=== PATIENT | male | born 1945 | race Caucasian/White ===

== ENCOUNTER → 2021-02-23 15:30 | Outpatient (CLI) | payer MEDICARE, SELFPAY ==
--- NOTE | 2021-02-23 15:31 | DI.RAD.S_ITS ---
PROCEDURE: XR BONE SURVEY INDICATIONS: MGUS, looking for lytic bone lesions TECHNIQUE: Multiple views obtained of various bony structures as described below. COMPARISON: None. FINDINGS: Skull (lateral): No suspicious bony lesions. No fractures. Thoracic spine (AP, lateral): No suspicious bony lesions. No acute vertebral body compression fractures. Lumbar spine (AP, lateral): No suspicious bony lesions. No acute vertebral body compression fractures. Relatively prominent degenerative disc disease and [id number] facet osteoarthritis is noted, without osteolytic or blastic lesions. Multiple bridging osteophytes are present along the lower thoracic spine and the lumbosacral spine. Pelvis (AP): No suspicious bony lesions. No fractures. Overlying soft tissues appear unremarkable. 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 Right and left humeri (AP): No suspicious bony lesions. No fractures. Overlying soft tissues appear unremarkable. Right and left femurs (AP): No suspicious bony lesions. No fractures. Overlying soft tissues appear unremarkable. 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 IMPRESSION: Degenerative changes as discussed but no osteolytic or blastic bone lesions throughout the axial and appendicular skeleton included on this study. Dictated by: Michael Soni M.D. on 02/23/2021 at 16:17 Approved by: Michael Soni M.D. on 02/23/2021 at 16:19
== END ==
PROVIDERS: PCP Family Medicine; Referring Provider Internal Medicine; Visit Provider Internal Medicine
DX: D47.2 Monoclonal gammopathy (principal); M51.36 Other intervertebral disc degeneration, lumbar region; M47.816 Spondylosis without myelopathy or radiculopathy, lumbar region; M16.9 Osteoarthritis of hip, unspecified; Z96.653 Presence of artificial knee joint, bilateral
CPT/HCPCS: 77075

== ENCOUNTER 2021-06-23 09:44 | Emergency (ER) | payer MEDICARE, SELFPAY ==
[2021-06-23 09:45] VITALS: BP 137/67; PULSE 94; RESP 14; TEMP 37.1; O2SAT 98; BMI 29.5
--- NOTE | 2021-06-23 09:58 | ED_ITS ---
HPI - General Adult General Chief complaint: Dental/Oral Stated complaint: bleeding from mouth, coagulation issues Time Seen by Provider: 06/23/21 09:48 Source: patient Mode of arrival: Ambulatory Limitations: no limitations History of Present Illness HPI narrative: Patient is a 75-year-old male. History of thrombocytopenia. Is here for evaluation of bleeding from his mouth. He states that he thought maybe he bit his tongue yesterday. He woke up this morning with blood running down the side of his mouth. No problems breathing. No problems swallowing. Related Data Home Medications Medication Instructions Recorded Confirmed cholecalciferol (vitamin D3) 25 1,000 u PO QDAY #0 03/08/17 02/23/21 mcg (1,000 unit) tablet (Vitamin D3) chondroitin sulfate A 250 mg 600 mg PO Q DAY #0 03/08/17 02/23/21 capsule (Chondroitin Sulfate) vitamin E 400 unit capsule 400 u PO QDAY #0 03/08/17 02/23/21 acetaminophen 325 mg tablet 325 mg PO Q4HP PRN 02/23/21 02/23/21 fexofenadine 180 mg tablet 180 mg PO DAILY 02/23/21 02/23/21 folic acid 800 mcg tablet 800 mcg DAILY 02/23/21 02/23/21 krill oil 500 mg capsule 500 mg PO DAILY 02/23/21 02/23/21 montelukast 10 mg tablet 10 mg PO DAILY 02/23/21 02/23/21 multivitamin 1 tab PO DAILY 02/23/21 02/23/21 piroxicam 10 mg capsule 10 mg PO DAILY 02/23/21 02/23/21 pravastatin 20 mg tablet 20 mg PO DAILY 02/23/21 02/23/21 pyridoxine (vitamin B6) 100 mg 100 mg DAILY 02/23/21 02/23/21 tablet (Vitamin B-6) testosterone 02/23/21 valacyclovir 500 mg tablet 500 mg PO BID PRN 02/23/21 02/23/21 (Valtrex) vitamin E 400 unit capsule 400 unit PO DAILY 02/23/21 02/23/21 zolpidem 5 mg tablet (Ambien) 2.5 mg PO BEDTIME PRN 02/23/21 02/23/21 Previous Rx's Medication Instructions Recorded aspirin 81 mg tablet,delayed 81 mg PO BID #60 tab 01/24/18 release Allergies Allergy/AdvReac Type Severity Reaction Status Date / Time levofloxacin Allergy Severe HALLUCINATI Verified 06/23/21 09:50 ONS Review of Systems ENT Ears, Nose, Mouth, and Throat: Reports as per HPI Respiratory Respiratory: Reports system reviewed and no additional complaints, except as doc umented Gastrointestinal Comments: No problems swallowing Integumentary/Breasts Skin/Breast: Reports system reviewed and no additional complaints, except as documented Hematologic/Lymphatic Hematologic/Lymphatic: Reports easy bleeding On Anticoagulants: No Patient History Medical History Fracture of proximal end of right tibia Hypertension MGUS (monoclonal gammopathy of unknown significance) Obesity Social History Smoking Status: Unknown if ever smoked Smoking Status: Unknown if ever smoked alcohol intake frequency: 0-2 drinks per day Substance Use Type: does not use Exam Initial Vital Signs Initial Vital Signs: Vital Signs Temperature 98.8 F 06/23/21 09:45 Pulse Rate 94 H 06/23/21 09:45 Respiratory Rate 14 06/23/21 09:45 Blood Pressure 137/67 06/23/21 09:45 Pulse Oximetry 98 06/23/21 09:45 Const General: cooperative, healthy appearing and comfortable [facility] Mouth: oral mucosae normal, lip normal and lip abnormal (Bleeding coming from the underside of the left side of the tongue) Resp Effort & Inspection: normal respiratory effort Cardio Rate: regular rate Skin General: no rashes or lesions noted Neuro General: patient alert, patient awake, patient oriented x3 and moves all extremities Extrem General: normal to inspection and capillary refill normal Course Vital Signs Vital signs: Vital Signs - 8 hr 06/23/21 09:45 06/23/21 12:00 Temperature 98.8 F Pulse Rate 94 H 60 Respiratory Rate 14 Blood Pressure 137/67 127/62 Pulse Oximetry 98 98 Medical Decision Making MDM Narrative Medical decision making narrative: The bleeding was isolated to the underside of the left distal portion of his tongue. We were able to control the bleeding with some Gelfoam and pressure. He does have low platelets however I have feel that this is most likely not the cause of his issues today. I feel that we can hold on further workup for now. He was given return precautions and follow-up instructions. He expressed understanding and agreement. Discharge Plan Departure Patient Disposition: Home Clinical Impression: Hemorrhage of tongue Instructions: Immune Thrombocytopenia Purpura Activity Restrictions/Additional Instructions: Continue to take all of your medications as directed. Contact your primary doctor for a follow-up. Return to the emergency department for any new or worsening symptoms Prescriptions: No Action Chondroitin Sulfate 250 MG capsule 600 mg PO Q DAY Qty: 0 RF: 0 vitamin E 400 UNIT capsule 400 u PO QDAY Qty: 0 RF: 0 cholecalciferol (vitamin D3) [Vitamin D3] 1,000 UNIT tablet 1,000 u PO QDAY Qty: 0 RF: 0 aspirin 81 MG tablet,delayed release (DR/EC) 81 mg PO BID Qty: 60 RF: 1 multivitamin Tablet 1 tab PO DAILY RF: 0 fexofenadine 180 mg Tablet 180 mg PO DAILY RF: 0 valacyclovir [Valtrex] 500 mg Tablet 500 mg PO BID PRN (Reason: Outbreak) RF: 0 montelukast 10 mg Tablet 10 mg PO DAILY RF: 0 piroxicam 10 mg Capsule 10 mg PO DAILY RF: 0 pravastatin 20 mg Tablet 20 mg PO DAILY RF: 0 zolpidem [Ambien] 5 mg Tablet 2.5 mg PO BEDTIME PRN (Reason: Insomnia) RF: 0 pyridoxine (vitamin B6) [Vitamin B-6] 100 mg Tablet 100 mg DAILY RF: 0 vitamin E 400 unit Capsule 400 unit PO DAILY RF: 0 folic acid 800 mcg Tablet 800 mcg DAILY RF: 0 krill oil 500 mg Capsule 500 mg PO DAILY RF: 0 testosterone RF: 0 acetaminophen 325 MG tablet 325 mg PO Q4HP PRN (Reason: Pain (Scale Score 4-6)) RF: 0 Referrals: Salinas Morris MD [Primary Care Provider] -
--- NOTE | 2021-06-23 11:12 | PC.NURSE ---
Pt arrived with blood in mouth. Pt woke up this morning like that with dried blood on side of mouth. Pt has recently had a hx of increased bleeding that his pcp is working him up for.
[2021-06-23 12:00] VITALS: BP 127/62; PULSE 60; O2SAT 98
== END 2021-06-23 12:02 | disposition home or self-care (01) ==
PROVIDERS: Emergency Provider Emergency Medicine; PCP Family Medicine
DX: K14.8 Other diseases of tongue (principal)
CPT/HCPCS: 99281

== ENCOUNTER 2021-06-25 22:09 | Emergency (ER) | payer MEDICARE, SELFPAY ==
[2021-06-25 22:17] VITALS: BP 117/71; PULSE 82; RESP 18; TEMP 36.4; O2SAT 98; BMI 29.5
[2021-06-25] MEDS: LIDOCAINE 1% W/EPI 30 ML (22:22)
--- NOTE | 2021-06-25 22:25 | ED.WOUNDLAC ---
HPI - Wound/Laceration General Chief Complaint: Wound/Laceration Stated Complaint: bleeding and wont stop, small puncture from shot Time Seen by Provider: 06/25/21 22:16 Source: patient Mode of arrival: Ambulatory Limitations: no limitations History of Present Illness HPI narrative: Patient is a 75-year-old male history of thrombocytopenia and recent diagnosis of MGUS presenting today with bleeding after his testosterone shot. Put the shot into his left thigh. He has applied pressure he put Coban and a bandage on it and it continues to ooze. He does take aspirin occasionally as well. He said he is being worked up his primary care provider just sent multiple tests off. I do not see any results yet in are system. He was previously seen here on June 23 for bleeding after he bit his tongue. Related Data Home Medications Medication Instructions Recorded Confirmed cholecalciferol (vitamin D3) 25 1,000 u PO QDAY #0 03/08/17 02/23/21 mcg (1,000 unit) tablet (Vitamin D3) chondroitin sulfate A 250 mg 600 mg PO Q DAY #0 03/08/17 02/23/21 capsule (Chondroitin Sulfate) vitamin E 400 unit capsule 400 u PO QDAY #0 03/08/17 02/23/21 acetaminophen 325 mg tablet 325 mg PO Q4HP PRN 02/23/21 02/23/21 fexofenadine 180 mg tablet 180 mg PO DAILY 02/23/21 02/23/21 folic acid 800 mcg tablet 800 mcg DAILY 02/23/21 02/23/21 krill oil 500 mg capsule 500 mg PO DAILY 02/23/21 02/23/21 montelukast 10 mg tablet 10 mg PO DAILY 02/23/21 02/23/21 multivitamin 1 tab PO DAILY 02/23/21 02/23/21 piroxicam 10 mg capsule 10 mg PO DAILY 02/23/21 02/23/21 pravastatin 20 mg tablet 20 mg PO DAILY 02/23/21 02/23/21 pyridoxine (vitamin B6) 100 mg 100 mg DAILY 02/23/21 02/23/21 tablet (Vitamin B-6) testosterone 02/23/21 valacyclovir 500 mg tablet 500 mg PO BID PRN 02/23/21 02/23/21 (Valtrex) vitamin E 400 unit capsule 400 unit PO DAILY 02/23/21 02/23/21 zolpidem 5 mg tablet (Ambien) 2.5 mg PO BEDTIME PRN 02/23/21 02/23/21 Previous Rx's Medication Instructions Recorded aspirin 81 mg tablet,delayed 81 mg PO BID #60 tab 01/24/18 release Allergies Allergy/AdvReac Type Severity Reaction Status Date / Time levofloxacin Allergy Severe HALLUCINATI Verified 06/25/21 22:17 ONS Review of Systems Review of Systems Narrative: GENERAL: Denies chills,fever HEENT: Denies throat pain RESPIRATORY: Denies dyspnea, cough, wheezing CARDIOVASCULAR: Denies chest pain, palpitations GASTROINTESTINAL: Denies nausea, vomiting MUSCULOSKELETAL: Denies extremity pain, injury SKIN: See HPI NEUROLOGIC: Denies weakness, dizziness, headache, numbness 8 point review of systems is negative except for those stated above and HPI Patient History Medical History Fracture of proximal end of right tibia Hypertension MGUS (monoclonal gammopathy of unknown significance) Obesity Social History Smoking Status: Unknown if ever smoked Smoking Status: Unknown if ever smoked alcohol intake frequency: 0-2 drinks per day Substance Use Type: does not use Exam Initial Vital Signs Initial Vital Signs: Vital Signs Temperature 97.6 F 06/25/21 22:17 Pulse Rate 82 06/25/21 22:17 Respiratory Rate 18 06/25/21 22:17 Blood Pressure 117/71 06/25/21 22:17 Pulse Oximetry 98 06/25/21 22:17 GENERAL: Pleasant alert 75-year-old male no acute distress CARDIOVASCULAR: peripheral pulses in tact, cap refill <2 sec RESPIRATORY: No respiratory distress, speaks in full sentences without difficulty EXTREMITIES: Normal range of motion, no clubbing or edema. Neurovascularly intact NEUROLOGICAL: Cranial nerves II through XII grossly intact. Normal gait and speech. SKIN: Left thigh small needle puncture wound oozing with blood. Nontender. No pulsatile bleeding. Course Vital Signs Vital signs: Vital Signs - 8 hr 06/25/21 22:17 Temperature 97.6 F Pulse Rate 82 Respiratory Rate 18 Blood Pressure 117/71 Pulse Oximetry 98 MDM - Wound/Laceration MDM Narrative Medical decision making narrative: Surgicel and pressure applied for 5 minutes. Bleeding did seem to stop. For good measure lidocaine with epinephrine was injected at this site as well. Surgicel gauze and Coban placed. Patient has an appointment with his PCP in 2 days. Discharge Plan Departure Patient Disposition: Home Clinical Impression: Puncture wound, Thrombocytopenia Instructions: DI for Puncture Wound Activity Restrictions/Additional Instructions: *You have been diagnosed with small puncture wound. *What to do: Your platelets are low any are taking aspirin which could make clotting difficult causing increased bleeding. I think that is what happened today. If bleeding should reoccur please hold good pressure, probably easier for someone else to hold pressure if possible for 20-30 minutes. If bleeding continues return to the emergency department. *Continue to take medications as directed *Follow up with your primary care provider in 2-3 days *Return to ER if you should have persistent ongoing bleeding, redness, pus, swelling, increased pain or any new, worsening or concerning symptoms Prescriptions: No Action Chondroitin Sulfate 250 MG capsule 600 mg PO Q DAY Qty: 0 RF: 0 vitamin E 400 UNIT capsule 400 u PO QDAY Qty: 0 RF: 0 cholecalciferol (vitamin D3) [Vitamin D3] 1,000 UNIT tablet 1,000 u PO QDAY Qty: 0 RF: 0 aspirin 81 MG tablet,delayed release (DR/EC) 81 mg PO BID Qty: 60 RF: 1 multivitamin Tablet 1 tab PO DAILY RF: 0 fexofenadine 180 mg Tablet 180 mg PO DAILY RF: 0 valacyclovir [Valtrex] 500 mg Tablet 500 mg PO BID PRN (Reason: Outbreak) RF: 0 montelukast 10 mg Tablet 10 mg PO DAILY RF: 0 piroxicam 10 mg Capsule 10 mg PO DAILY RF: 0 pravastatin 20 mg Tablet 20 mg PO DAILY RF: 0 zolpidem [Ambien] 5 mg Tablet 2.5 mg PO BEDTIME PRN (Reason: Insomnia) RF: 0 pyridoxine (vitamin B6) [Vitamin B-6] 100 mg Tablet 100 mg DAILY RF: 0 vitamin E 400 unit Capsule 400 unit PO DAILY RF: 0 folic acid 800 mcg Tablet 800 mcg DAILY RF: 0 krill oil 500 mg Capsule 500 mg PO DAILY RF: 0 testosterone RF: 0 acetaminophen 325 MG tablet 325 mg PO Q4HP PRN (Reason: Pain (Scale Score 4-6)) RF: 0 Referrals: Salinas Morris MD [Primary Care Provider] -
== END 2021-06-25 22:34 | disposition home or self-care (01) ==
PROVIDERS: Emergency Provider Emergency Medicine; PCP Family Medicine
DX: S71.132A Puncture wound without foreign body, left thigh, initial encounter (principal); D69.6 Thrombocytopenia, unspecified
CPT/HCPCS: 99281; 99282

== ENCOUNTER → 2021-09-12 15:30 | Outpatient (CLI) | payer MEDICARE, SELFPAY ==
--- NOTE | 2021-09-12 | DI.RAD.S_ITS ---
PROCEDURE: XR CHEST 2V INDICATIONS: Other intra-abdominal and pelvic swelling, mass and lump TECHNIQUE: 2 views of the chest were acquired. COMPARISON: [facility], , CHEST 2 VIEW, 02/25/2014, 14:50. FINDINGS: Surgical changes and devices: None. Lungs and pleura: Stable findings. Chronic interstitial fibrosis. No pleural effusions or pneumothorax. Mediastinum: Mediastinal contours are normal. Heart size is normal. Bones and chest wall: No suspicious bony abnormalities. Soft tissues appear unremarkable. IMPRESSION: Chronic interstitial fibrosis. No evidence acute pulmonary process. Dictated by: Joel Rutherford M.D. on 09/12/2021 at 16:29 Approved by: Joel Rutherford M.D. on 09/12/2021 at 16:30
--- NOTE | 2021-09-12 | DI.US.S_ITS ---
PROCEDURE: US ABDOMEN LIMITED INDICATIONS: RIGHT INGUINAL MASS. HISTORY OF MGUS. TECHNIQUE: Real-time focused scanning was performed of the abdomen, with image documentation. COMPARISON: None. FINDINGS: At the area of clinical concern within the right medial groin, there is a complex hypoechoic lobulated mass with increased vascularity that measures 8.4 x 4.1 x 2.8 cm. Within the right lateral groin, there is a prominent lymph node seen that measures 3.6 x 2.5 x 0.8 cm. Incidental note is made of a septated hypoechoic hypervascular mass surrounding the iliac arteries that measures 12.2 x 4.3 x 6.7 cm. IMPRESSION: Lobulated hypoechoic vascular mass seen at the area of clinical concern that measures 8.4 x 4.1 x 2.8 cm. This is most likely related to a group of abnormal lymph nodes. There is an additional enlarged lymph node seen within the right groin. Within the pelvis, there is additional hypoechoic hypervascular material seen surrounding the iliacs, which may be related to an additional lymph node mass or may simply be artifact related to bowel. When clinically appropriate, a follow-up pelvic CT with at least IV contrast would be recommended for further evaluation. Dictated by: Chaitanya Gilbert M.D. on 09/12/2021 at 15:45 Approved by: Chaitanya Gilbert M.D. on 09/12/2021 at 15:48
[2021-09-12 17:17] LABS: Alanine Aminotransferase 92 IU/L (<50); Albumin 3.4 g/dL (3.5-5.0); Albumin Globulin Ratio 0.9 (1.0-2.8); Alkaline Phosphatase 100 U/L (38-126); Aspartate Aminotransferase 93 IU/L (17-59); BUN Creatinine Ratio 31.7 (6-22); Bilirubin Total 0.9 mg/dL (0.2-1.3); Blood Urea Nitrogen 19 mg/dL (9-20); Calcium 8.7 mg/dL (8.4-10.2); Carbon Dioxide 30 mmol/L (22-32); Chloride 100 mmol/L (98-107); Estimated Glomerular Filt Rate > 60.0 mL/min (>60); Globulin 3.9 g/dL (1.7-4.1); Glucose 112 mg/dL (80-110); HEMOLYSIS 38 (0-50); Potassium 4.6 mmol/L (3.4-5.1); Sodium 137 mmol/L (137-145); Total Protein 7.3 g/dL (6.3-8.2)
[2021-09-12 17:19] LABS: Add Manual Diff / Slide Review YES; Hematocrit 30.5 % (41-53); Hemoglobin 10.1 g/dL (13.5-17.5); Mean Corpuscular HGB Conc 33.2 % (30-36); Mean Corpuscular Hemoglobin 33.6 PG (26-34); Mean Corpuscular Volume 100.9 fL (80-100); Platelet Count 269 X10^3/uL (150-400); Red Blood Cell Count 3.02 X10^6/uL (4.5-5.9); Red Cell Distribution Width 13.7 % (11.6-14.8); White Blood Cell Count 9.9 X10^3/uL (4.5-11.0)
[2021-09-12 18:20] LABS: Macrocytosis 1+; Neutrophils Absolute Manual 1386 /uL (3000-5900); Total Cells Counted 100
[2021-09-12 18:21] LABS: Smudge Cells 2+
[2021-09-13 14:08] LABS: Free Kappa Lt Chains, Serum 124.6 mg/L (3.3-19.4); Free Lambda Lt Chains,Serum 59.6 mg/L (5.7-26.3)
[2021-09-14 16:17] LABS: Albumin 2.8 g/dL (2.9-4.4); Alpha-1-Globulin 0.4 g/dL (0.0-0.4); Alpha-2-Globulin 1.3 g/dL (0.4-1.0); Gamma Globulin 2.1 g/dL (0.4-1.8); Globulin Total 4.6 g/dL (2.2-3.9); Protein, Total 7.4 g/dL (6.0-8.5)
== END ==
PROVIDERS: Internal Medicine; PCP Family Medicine; Referring Provider Family Medicine; Visit Provider Family Medicine
DX: R63.4 Abnormal weight loss (principal); R19.09 Other intra-abdominal and pelvic swelling, mass and lump; D47.2 Monoclonal gammopathy
CPT/HCPCS: 36415; 71046; 76705; 80053; 83883; 84155; 84165; 85007; 85025

== ENCOUNTER → 2021-09-20 11:33 | Outpatient (CLI) | payer MEDICARE, SELFPAY ==
--- NOTE | 2021-09-20 | DI.CT.S_ITS ---
PROCEDURE: CT NECK CHEST ABD PEL W CON INDICATIONS: Localized swelling, mass and lump, neck TECHNIQUE: After the administration of oral and intravenous contrast, axial sections acquired from the skull base to the pubic symphysis. Coronal and sagittal reformats were performed. For radiation dose reduction, the following was used: automated exposure control, adjustment of mA and/or kV according to patient size. COMPARISON: None. FINDINGS: Image quality: Excellent. NECK: Numerous prominent bilateral level 1, level 2, level 3, level 4 and level 5 neck lymph nodes are noted which do not meet pathologic size criteria. No mucosal based masses identified. No abscess identified. Scattered atherosclerotic calcifications noted in the carotid arteries. Visualized brain is normal. Degenerative disc disease and facet arthropathy noted in the cervical spine. CHEST: Lower Neck: No enlarged lymph nodes. Thyroid: Within normal limits. Axillae: Multiple enlarged bilateral axillary and subpectoral lymph nodes are noted. Chest Wall: Unremarkable. Lungs and Airways: Interstitial thickening noted in the periphery of the lungs bilaterally compatible with chronic lung disease. 1.3 centimeter nodule with irregular margins noted in the lateral periphery of the left lung base (series 3, image 321). 1.4 centimeter subpleural nodule noted in the left lung base (series 3, image 347). 4 millimeter nodule in the left lung base (series 3, image 351). Pleura: No pneumothorax or pleural effusions. Heart: Heart size is normal. No pericardial effusion. Thoracic Vessels: The aorta and pulmonary arteries demonstrate normal size. Mediastinum and Melanie: Multiple enlarged mediastinal lymph nodes are noted. Prominent left hilar lymph nodes are noted which do not meet pathologic size criteria. Enlarged right hilar lymph node is noted. Pneumomediastinum is noted. Esophagus: No wall thickening. No hiatal hernia. ABDOMEN: Liver: Unremarkable. Gallbladder: Surgically absent. Biliary ducts: Unremarkable. Pancreas: Unremarkable. Spleen: Unremarkable. Adrenal Glands: Unremarkable. Kidneys and Ureters: 1.1 centimeter nonobstructing right renal stone.. Stomach and Bowel: Stomach, small bowel loops, and colon are unremarkable. Numerous colonic diverticuli without evidence of diverticulitis. Peritoneum: No abnormal intraperitoneal fluid. No free air. Ventral Wall: No hernia. Abdominal Nodes: Bulky periportal lymphadenopathy is noted. Bulky periaortic and aortocaval retroperitoneal lymphadenopathy is noted. Vessels: Aorta and inferior vena cava are normal in size. PELVIS: Pelvic Organs: Unremarkable. Bladder: Unremarkable. Pelvic Nodes: Bulky right iliac lymph chain pelvic lymphadenopathy. Bulky right inguinal lymphadenopathy. Enlarged left iliac lymph nodes and left inguinal lymph nodes. Miscellaneous: No inguinal hernias are seen. Bones: Acute appearing posterior right 8th and 9th rib fractures. Spine degenerative disc disease and facet arthropathy. IMPRESSION: 1. Axillary, subpectoral, mediastinal, retroperitoneal, pelvic and inguinal lymphadenopathy highly suspicious for lymphoma. Prominent bilateral neck lymph nodes which do not meet pathologic size criteria, but based on the number of prominent nodes findings suspicious for early lymphomatous involvement. 2. Pneumomediastinum of uncertain etiology. 3. 1.3 and 1.4 centimeter nodules centimeter nodules in the left lung base suspicious for neoplastic process. 4. Right 8th and 9th rib fractures. 5. Colonic diverticulosis without evidence of diverticulitis. 6. 1.1 centimeter nonobstructing right renal stone. Dictated by: Ashley Fowler MD, PhD on 09/20/2021 at 15:53 Approved by: Ashley Fowler MD, PhD on 09/20/2021 at 16:12
== END ==
PROVIDERS: PCP Family Medicine; Referring Provider Family Medicine; Visit Provider Family Medicine
DX: R59.1 Generalized enlarged lymph nodes (principal); S22.41XA Multiple fractures of ribs, right side, initial encounter for closed fracture; R22.1 Localized swelling, mass and lump, neck; R19.00 Intra-abdominal and pelvic swelling, mass and lump, unspecified site; R63.4 Abnormal weight loss; K57.90 Diverticulosis of intestine, part unspecified, without perforation or abscess without bleeding; N20.0 Calculus of kidney; Z90.49 Acquired absence of other specified parts of digestive tract
CPT/HCPCS: 70491; 71260; 74177

== ENCOUNTER 2021-10-03 09:26 | Day surgery (SDC) | payer MEDICARE, SELFPAY ==
[2021-09-27 11:47] VITALS: BMI 24.7
[2021-10-03] VITALS (8 sets, daily range): BP systolic 95–103; BP diastolic 47–61; PULSE 63–88; RESP 11–100; TEMP 36.5–36.6; O2SAT 97–100; BMI 24.7
--- NOTE | 2021-10-03 | PATH_ITS ---
[facility] Accession Number: [id number] . 01 Material submitted: . PART A: lymph node - LEFT AXILLARY LYMPH NODE-FORMALIN PART B: lymph node - LEFT AXILLARY LYMPH NODE- B-FIX PART C: lymph node - LEFT AXILLARY LYMPH NODE- FRESH . 01 Clinical history: . LYMPHODENOPATHY . 01 Diagnosis: A, B, C. 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 V 10/18/2021 1545 Local . 01 Comment: Concurrent flow cytometry identified B lymphoproliferative disorder with immunophenotype characteristic of chronic lymphocytic leukemia/small lymphocytic lymphoma of the abnormal CD5+/CD19+ coexpressing clonal B-cell population (see complete flow cytometry report [id number]). . Aggressive B-cell lymphoma FISH panel was performed and showed no rearrangement of BCL2, BCL6, or MYC (see complete report under LCLS specimen #[id number] for details). . Preliminary results were discussed with Dr. Sorto on 10/12/2021 at 11:45 a.m. . As part of ongoing principal quality engineer, this case is also reviewed by hematopathologist, Dr. Maryellen Giron, who agrees with the interpretation. . 01 Electronically signed: . Jasbir Alex MD, Pathologist NPI- [id number] . 01 Gross description: . A. Received in formalin, labeled left axillary lymph node consists of a 2.0 x 1.5 x 1.5 cm johnson-pink lymph node, which is serially sectioned and entirely submitted in cassettes A1-A3. B. Received in B Fixative, labeled left axillary lymph node consists of a 1.4 x 1.0 x 0.8 cm johnson lymph node, which is serially sectioned and entirely submitted in cassette B1. . Also received is one slide labeled with the patient's name and date of , left axillary lymph node and is in 95% alcohol, and an additional fresh slide labeled with the patient's name and date of and left axillary lymph node. The slides are forwarded to histology. (EA:[id number]) . C. Received fresh, labeled left axillary lymph node and consists of two johnson-pink lymph node fragments measuring 0.5 x 0.4 x 0.2 cm and 1.0 x 0.8 x 0.6 cm. The largest fragment is bisected and the specimen is entirely submitted in cassette C1. (EA:[id number]) /MRV 10/04/2021 1305 Local . 01 Microscopic: . Microscopic examination of the lymph node reveals that the architecture is effaced by the proliferation of neoplastic lymphocytes with variable size. Although there are areas composed of predominantly small-sized lymphocytes with clumped chromatin and inconspicuous nucleolus, there are areas where intermediate and large-sized lymphocytes with prominent nucleolus are seen within expanded and confluent proliferation centers, with increased proliferation, by ki-67, approximately 40%. These features support histologically aggressive chronic lymphocytic leukemia/small lymphocytic lymphoma with areas bordering to Saeed's Syndrome (transformation to diffuse large B-cell lymphoma). . To better evaluate the lymph node, a panel of immunostains is performed with the following results: . CD3 (block A2): T lymphocytes positive, neoplastic lymphocytes negative. CD5 (block A2): Neoplastic B lymphocytes positive. CD10 (block A2): Neoplastic B lymphocytes negative, rare residual follicles positive. CD20 (block A2): Neoplastic lymphocytes diffuse strong positive. CD23 (block A2): Neoplastic lymphocytes positive (also follicular dendritic cells within the rare residual lymphoid follicle positive). BCL2 (block A2): Neoplastic B lymphocytes positive. BCL6 (block A2): Residual follicles positive and nonspecific background positivity (neoplastic B lymphocytes are considered overall negative). Therefore, BCL6 is also repeated at [facility], see below immunohistochemistry. Cyclin D1 (block A2): Neoplastic B lymphocytes negative. P53: Neoplastic lymphocytes positive, approximately 60-70% with variable intensity. Proliferation marker Ki-67 (blocks A1, A2, A3, and B1): Increased, approximately 40%. . Additional immunostains were performed at [facility] with the following results (technical only component at [facility]): . . LEF1: Neoplastic lymphocytes uniform strong positive. SOX11: Neoplastic lymphocytes negative. BCL6: Nonspecific staining. Neoplastic lymphocytes are interpreted overall negative. . In summary, the above immunophenotype supports chronic lymphocytic leukemia/small lyphocytic lymphoma (CD20+/CD5+/CD23+) and negative Cyclin D1 and SOX11 exclude the possibility of Mantle cell lymphoma, (with increased proliferation/blastoid variant). . Increased proliferation rate approximately 40% supports histologically aggressive chronic lymphocytic leukemia/small lymphocytic lymphoma with areas bordering to Saeed's Syndrome (transformation to diffuse large B-cell lymphoma). Clinical and radiologic correlation recommended. . * This test was developed and its performance characteristics determined by [facility]. It has not been cleared or approved by the U.S. Food and Drug Administration. The FDA has determined that such clearance or approval is not necessary. This test is used for clinical purposes. It should not be regarded as investigational or for research. . The stains LEF1, SOX11, and BCL6 were performed at [facility] (technical component only) [facility], [address] [place] [address], [address], [place] [address]. . 01 Pathologist provided ICD-10: R59.1, C83.54 . 01 CPT . 202163, 133954, 123233, Y32647, D01751, 071891, [id number] Performed at: 01 [facility] [address] [place] [address] [address], [place], [place] [id number] MD Javan Altamirano MD Phone: [phone]
[2021-10-03 09:57] LABS: COVID19 -Nasal RAPID Negative (Negative)
--- NOTE | 2021-10-03 10:03 | PM.PREOP ---
Pre-operative Note COVID-19 COVID-19 status: Negative Result date/Date tested (Pos, Neg/Pending): 10/03/21 Interval Note History & Physical reviewed/Exam performed by Physician: Yes Changes to H&P: No ASA Class (for procedural sedation): III
[2021-10-03] MEDS: LACTATED RINGERS 1,000 ML 42 ML IV (10:05)
[2021-10-03] MEDS: CEFAZOLIN 1 GM VIAL 2 GM IV (10:36)
--- NOTE | 2021-10-03 10:37 | SUR.OPER ---
Supine on padded OR bed, head on pillow, arms secured on padded arm boards at <90 degrees abduction, legs uncrossed, safety belt at thigh, tape over blanket over lower legs.
[2021-10-03] MEDS: BUPIVACAINE 0.5% (PF) VIAL 30 ML INJ (10:42)
[2021-10-03] MEDS: LIDOCAINE 1% W/EPI 20 ML INJ (10:43)
--- NOTE | 2021-10-03 11:21 | PM.OP.1 ---
Operative Date/Time/Diagnoses Date of procedure: 10/03/21 Time of procedure: : Pre-op diagnosis: Lymphadenopathy Post-op diagnosis: same Procedure & Clinicians Procedure: Left axillary lymph node excisional biopsy Same procedure as scheduled: Yes Indications: Lymphadenopathy Surgeon: Jeffry Gutierres Click Yes if Unassisted: Yes Anesthesia Type: General Operative Notes Estimated Blood Loss (mL): 9 Procedure in detail: The patient was given Ancef. The patient was brought to the operating room, placed on the table in the supine position with the left arm abducted on an arm board. General anesthesia was induced via LMA. The left axilla was prepped and draped in the usual fashion. There is a palpable lymph node in the mid left axilla. We made a 5 cm transverse incision with a scalpel. We dissected through the subcutaneous adipose tissue with cautery. We exposed the lymph node and grasped the lymph node with an Allis clamp. We dissected around the lymph node found that it was actually a cluster of several nodes. We dissected is tissue around the lymph node cluster. Few larger structures which could of been lymphatics vessels were divided with mini clips. Once we had extracted the cluster of lymph nodes were found that it was about 5 lymph nodes. We then divided 1 lymph node an smear did on the 2 slides. We then added each half of the lymph node to the solutions. Another cluster of lymphatic tissue was sent in formalin and finally 1 more lymph node was sent fresh however sterile water was accidentally added to this specimen and may alter the appearance of cells. We then irrigated the wound with sterile water. There were few small bleeders in the subcutaneous adipose tissue that were cauterized. We then closed in layers using interrupted 3-0 Vicryl and a running 4 Monocryl subcuticular stitch. Steri-Strips were added and a Band-Aid was applied. Post-operative Condition: stable Disposition: PACU
== END 2021-10-03 11:35 | disposition home or self-care (01) ==
PROVIDERS: PCP Family Medicine; Referring Provider Surgery; Visit Provider Surgery
PROC: (CPT 38525; principal; 2021-10-03 10:15)
DX: R59.1 Generalized enlarged lymph nodes (principal); D47.2 Monoclonal gammopathy; I10 Essential (primary) hypertension; E66.9 Obesity, unspecified; Z68.24 Body mass index [BMI] 24.0-24.9, adult; Z20.822 Contact with and (suspected) exposure to COVID-19
CPT/HCPCS: 38525; 87635; J0690; J2405; J2704; J3010

== ENCOUNTER → 2021-10-10 10:05 | Outpatient (CLI) | payer MEDICARE, SELFPAY ==
[2021-10-10 10:43] LABS: Add Manual Diff / Slide Review YES; Hemoglobin 9.3 g/dL (13.5-17.5); Mean Corpuscular HGB Conc 33.1 % (30-36); Mean Corpuscular Hemoglobin 33.6 PG (26-34); Mean Corpuscular Volume 101.3 fL (80-100); Platelet Count 186 X10^3/uL (150-400); Red Blood Cell Count 2.76 X10^6/uL (4.5-5.9); Red Cell Distribution Width 16.4 % (11.6-14.8); White Blood Cell Count 8.2 X10^3/uL (4.5-11.0)
[2021-10-10 10:58] LABS: Anisocytosis 1+; Neutrophils Absolute Manual 574 /uL (3000-5900); Total Cells Counted 100
[2021-10-10 11:00] LABS: Alanine Aminotransferase 20 IU/L (<50); Albumin 3.3 g/dL (3.5-5.0); Alkaline Phosphatase 83 U/L (38-126); Aspartate Aminotransferase 33 IU/L (17-59); BUN Creatinine Ratio 26.6 (6-22); Bilirubin Total 0.4 mg/dL (0.2-1.3); Blood Urea Nitrogen 17 mg/dL (9-20); Calcium 8.4 mg/dL (8.4-10.2); Carbon Dioxide 33 mmol/L (22-32); Chloride 103 mmol/L (98-107); Estimated Glomerular Filt Rate > 60.0 mL/min (>60); Globulin 3.4 g/dL (1.7-4.1); Glucose 98 mg/dL (80-110); HEMOLYSIS < 15 (0-50); Lactate Dehydrogenase 435 U/L (313-618); Potassium 4.6 mmol/L (3.4-5.1); Sodium 138 mmol/L (137-145); Total Protein 6.7 g/dL (6.3-8.2)
== END ==
PROVIDERS: PCP Family Medicine; Referring Provider Internal Medicine Medical Oncology; Visit Provider Internal Medicine Medical Oncology
DX: R59.1 Generalized enlarged lymph nodes (principal)
CPT/HCPCS: 36415; 80053; 83615; 85007; 85025

== ENCOUNTER → 2022-04-28 14:00 | Outpatient (CLI) | payer MEDICARE, SELFPAY ==
[2022-04-28 16:44] LABS: Folate > 20.0 ng/mL (2.76-20.0); Vitamin B12 425 pg/mL (239-931)
== END ==
PROVIDERS: PCP Family Medicine; Referring Provider Family Medicine; Visit Provider Family Medicine
DX: C91.10 Chronic lymphocytic leukemia of B-cell type not having achieved remission (principal); D47.2 Monoclonal gammopathy; R31.9 Hematuria, unspecified; G62.9 Polyneuropathy, unspecified
CPT/HCPCS: 36415; 80053; 82607; 82746; 83615; 85007; 85025

== ENCOUNTER 2022-09-25 07:24 | Emergency (ER) | payer MEDICARE, SELFPAY ==
[2022-09-25 07:37] VITALS: BP 148/80; PULSE 79; RESP 16; TEMP 36.7; O2SAT 99; BMI 32.2
--- NOTE | 2022-09-25 08:24 | ED_ITS ---
HPI - Dental/Oral General Chief complaint: Dental/Oral Stated complaint: ag crisostomo stop bleeding Time Seen by Provider: 09/25/22 08:23 Source: patient Mode of arrival: Family Vehicle Limitations: no limitations History of Present Illness HPI Narrative: This is a 77-year-old male with CLL following with Oncology. Patient states woke up this morning with blood in his mouth he states it is coming from the top of his tongue he states it was a little bit brisk he would have to spit out clots fairly frequently. He has had Surgicel in place for about 30 minutes and it seems to have stopped he is had this once in June of 2021 before he does remember is on the top with the underside of his tongue but used Gelfoam and pressure and were able to resolve it. Patient states his labs have been holding steady but he has not had any recently. He denies any other symptoms or issues. Has not had any other recent bleeding issues. Related Data Home Medications Medication Instructions Recorded Confirmed chondroitin sulfate A 250 mg 600 mg PO Q DAY ##0 03/08/17 08/08/22 capsule (Chondroitin Sulfate) fexofenadine 180 mg tablet 180 mg PO DAILY 02/23/21 08/08/22 montelukast 10 mg tablet 10 mg PO DAILY 02/23/21 08/08/22 pravastatin 20 mg tablet 20 mg PO DAILY 02/23/21 08/08/22 zolpidem 5 mg tablet 5 mg PO BEDTIME PRN Insomnia 10/11/21 08/08/22 PreserVision AREDS-2 1 tab BID 01/31/22 08/08/22 multivitamin 1 tab DAILY 01/31/22 08/08/22 ascorbic acid (vitamin C) 1,000 mg 1,000 mg PO Q12H 05/02/22 08/08/22 tablet,extended release (Vitamin C ER) cholecalciferol (vitamin D3) 25 25 mcg PO DAILY 05/02/22 08/08/22 mcg (1,000 unit) capsule (Vitamin D3) cyanocobalamin (vitamin B-12) 1,000 mcg PO DAILY 05/02/22 08/08/22 1,000 mcg tablet (Vitamin B-12) fluoxetine 10 mg capsule 10 mg PO DAILY 05/02/22 08/08/22 folic acid 800 mcg tablet 0.8 mg PO DAILY 05/02/22 08/08/22 glucosamine sulf dipot 1 cap PO DAILY 05/02/22 08/08/22 chlr,msm,chond 550 mg-C 30 mg-paige 1 mg capsule (Glucosamine Chondroitin) loratadine 10 mg capsule 10 mg PO DAILY 05/02/22 08/08/22 piroxicam 10 mg capsule 10 mg PO DAILY 05/02/22 08/08/22 selenium 200 mcg capsule 200 mcg PO DAILY 05/02/22 08/08/22 testosterone cypionate 50 mg/mL 50 mg IM WEEKLY 05/02/22 08/08/22 intramuscular oil vitamin B6-vitamin E-magnesium 1 tab PO DAILY 05/02/22 08/08/22 tablet vitamin E 268 mg (400 unit) capsule 400 unit PO DAILY 05/02/22 08/08/22 vitamins A,C,E-gftt-isionz 2,148 2 tab PO DAILY 05/02/22 08/08/22 mcg-113 mg-45 mg-17.4 mg tablet (PreserVision AREDS) Allergies Allergy/AdvReac Type Severity Reaction Status Date / Time levofloxacin AdvReac Severe HALLUCINATI Verified 09/25/22 07:40 ONS Review of Systems Review of Systems ROS Unobtainable: All systems reviewed & are unremarkable except as noted in HPI and below Patient History Medical History BCC (basal cell carcinoma) Fracture of proximal end of right tibia 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 Hypertension MGUS (monoclonal gammopathy of unknown significance) Obesity Surgical History History of carpal tunnel surgery of left wrist History of carpal tunnel surgery of right wrist History of total left knee replacement History of total right knee replacement History of vasectomy Hx of arthroscopy of knee Hx of bilateral cataract extraction Hx of cholecystectomy Hx of foot surgery Hx of repair of left rotator cuff Hx of tonsillectomy Social History household members: spouse Smoking Status: Never smoker alcohol intake: current Smoking Status: Never smoker alcohol intake frequency: 0-2 drinks per day Substance Use Type: does not use Exam Narrative Exam Narrative: GEN: well nourished, well appearing male, alert and oriented x 3, patient appears to be in mild distress. HEENT: Atraumatic, pupils are equal round reactive to light, extraocular movements are intact, nares are clear, TMs are clear with no fluid, there is no conjunctival pallor. Throat is clear without any exudates, erythema, tonsillar enlargement or uvular deviation, patient has what appears to be slight abrasion on the tongue. Patient had had Surgicel in place does not appear to be actively bleeding at this time. HEART: Regular rate and rhythm without murmur, clicks, rubs. LUNGS:Lungs clear to auscultation, no wheezes, rales, crackles, chest moves symmetrically ABD:bowel sounds normal, soft, non-tender, no guarding, rebound, rigidity, no masses noted, no hepatosplenomegaly :No CVA tenderness MSCL: Non-tender, no muscle atrophy, muscles strength 5/5 upper and lower extremities, full range of motion, normal gait NEURO:CN 2-12 intact, sensation normal Initial Vital Signs Initial Vital Signs: Vital Signs Temperature 98.1 F 09/25/22 07:37 Pulse Rate 79 09/25/22 07:37 Respiratory Rate 16 09/25/22 07:37 Blood Pressure 148/80 H 09/25/22 07:37 Pulse Oximetry 99 09/25/22 07:37 Oxygen Delivery Method 09/25/22 07:37 Course Orders Ordered: ED Orders 09/25/22 09:00 CBC Auto Diff [Complete Blood Count AUTO DIFF] Stat CMP [Comprehensive Metabolic Panel] Stat PTT [Partial Thromboplastin Time] Stat Prothrombin Time INR Stat Vital Signs Vital signs: Vital Signs - 8 hr 09/25/22 07:37 Temperature 98.1 F Pulse Rate 79 Respiratory Rate 16 Blood Pressure 148/80 H Pulse Oximetry 99 Oxygen Delivery Method Room Air MDM - Dental/Oral Lab Data Result diagrams: 09/25/22 09:00 09/25/22 09:00 Labs: Lab Results 09/25/22 09/25/22 09/25/22 Range/Units 09:00 09:00 09:00 WBC 7.7 (4.5-11.0) X10^3/uL RBC 2.86 L (4.5-5.9) X10^6/uL Hgb 10.2 L (13.5-17.5) g/dL Hct 29.4 L (41-53) % MCV 102.5 H (80-100) fL MCH 35.5 H (26-34) PG MCHC 34.7 (30-36) % RDW 14.9 H (11.6-14.8) % Plt Count 147 L (150-400) X10^3/uL Neut % (Auto) Not Reportable Lymph % (Auto) Not Reportable [place] % (Auto) Not Reportable Eos % (Auto) Not Reportable Baso % (Auto) Not Reportable Lymph # (Auto) Not Reportable [place] # (Auto) Not Reportable Baso # (Auto) Not Reportable Total Counted 100 Seg Neutrophils % 8.0 L (38-70) % Lymphocytes % (Manual) 68.0 H (25-45) % Atypical Lymphs % 18.0 H ( - 0) % Monocytes % (Manual) 2.0 (2-11) % Eosinophils % (Manual) 2.0 (2-4) % Basophils % (Manual) 1.0 (0-1) % Blast Cells % 1.0 H (-0) % Neutrophils # (Manual) 616 L (4468-5816) /uL Smudge Cells 2+ H RBC Morphology Not Reportable Anisocytosis 1+ H PT 12.9 H (10.1-12.7) SECONDS INR 1.1 (0.9-1.3) APTT 43 H (26-36) SECONDS Sodium 139 (137-145) mmol/L Potassium 4.2 (3.4-5.1) mmol/L Chloride 104 (98-107) mmol/L Carbon Dioxide 30 (22-32) mmol/L BUN 22 H (9-20) mg/dL Creatinine 0.75 (0.66-1.25) mg/dL Estimated GFR > 60 (>60) mL/min BUN/Creatinine Ratio 29.3 H (6-22) Glucose 94 (80-110) mg/dL Calcium 8.2 L (8.4-10.2) mg/dL Total Bilirubin 0.5 (0.2-1.3) mg/dL AST 23 (17-59) IU/L ALT 11 (<50) IU/L Alkaline Phosphatase 100 (38-126) U/L Total Protein 6.6 (6.3-8.2) g/dL Albumin 3.5 (3.5-5.0) g/dL Globulin 3.1 (1.7-4.1) g/dL Albumin/Globulin Ratio 1.1 (1.0-2.8) MDM Narrative Medical decision making narrative: 77-year-old male with bleeding of his tongue, appears to have some abrasion patient states he woke up like this, he has CLL and likely has some platelet d ysfunction although not significantly low today, labs were checked no major changes. Patient had some Surgicel applied directly with some pressure and this stopped his bleeding he is not had any recurrence after about an hour of monitoring +. Patient discharged home, return precautions his labs were printed and given to him to share with his oncology team. Discharge Plan Departure Patient Disposition: Home Clinical Impression: Hemorrhage of tongue Activity Restrictions/Additional Instructions: Please follow-up with your oncology team. I did print her labs off so he can share these with your You may use Surgicel x1 at home with pressure if this is adequate you do not have to do anything different. If in adequate please return. Prescriptions: No Action Chondroitin Sulfate 250 MG capsule 600 mg PO Q DAY Qty: 0 zolpidem 5 mg tablet 5 mg PO BEDTIME PRN (Reason: Insomnia) fexofenadine 180 mg Tablet 180 mg PO DAILY montelukast 10 mg Tablet 10 mg PO DAILY pravastatin 20 mg Tablet 20 mg PO DAILY multivitamin Tablet 1 tab DAILY PreserVision AREDS-2 1 tab BID Vitamin C 1,000 mg Tablet Extended Release 1,000 mg PO Q12H cyanocobalamin (vitamin B-12) [Vitamin B-12] 1,000 mcg Tablet 1,000 mcg PO DAILY fluoxetine 10 mg Capsule 10 mg PO DAILY piroxicam 10 mg Capsule 10 mg PO DAILY vitamin E 400 unit Capsule 400 unit PO DAILY folic acid 800 mcg Tablet 0.8 mg PO DAILY cholecalciferol (vitamin D3) [Vitamin D3] 25 mcg (1,000 unit) Capsule 25 mcg PO DAILY vitamin B6-vitamin E-magnesium Tablet 1 tab PO DAILY loratadine 10 mg Capsule 10 mg PO DAILY PreserVision AREDS 7,160 unit- 113 mg-100 unit Tablet 2 tab PO DAILY Rx Instructions: administer with AM and PM meals selenium 200 mcg Capsule 200 mcg PO DAILY Glucosamine Chondroitin 550-30-1 mg Capsule 1 cap PO DAILY testosterone cypionate 50 mg/mL Oil 50 mg IM WEEKLY Referrals: Salinas Morris MD [Primary Care Provider] - Visit Report Forms: Patient Portal/API
[2022-09-25 09:29] LABS: Add Manual Diff / Slide Review YES; Hematocrit 29.4 % (41-53); Hemoglobin 10.2 g/dL (13.5-17.5); Mean Corpuscular HGB Conc 34.7 % (30-36); Mean Corpuscular Hemoglobin 35.5 PG (26-34); Mean Corpuscular Volume 102.5 fL (80-100); Platelet Count 147 X10^3/uL (150-400); Red Blood Cell Count 2.86 X10^6/uL (4.5-5.9); Red Cell Distribution Width 14.9 % (11.6-14.8); White Blood Cell Count 7.7 X10^3/uL (4.5-11.0)
[2022-09-25 09:33] LABS: INR 1.1 (0.9-1.3); Prothrombin Time 12.9 SECONDS (10.1-12.7)
[2022-09-25 09:35] LABS: PTT Partial Thromboplastin Tim 43 SECONDS (26-36)
[2022-09-25 09:42] LABS: Alanine Aminotransferase 11 IU/L (<50); Albumin 3.5 g/dL (3.5-5.0); Albumin Globulin Ratio 1.1 (1.0-2.8); Alkaline Phosphatase 100 U/L (38-126); Aspartate Aminotransferase 23 IU/L (17-59); BUN Creatinine Ratio 29.3 (6-22); Bilirubin Total 0.5 mg/dL (0.2-1.3); Blood Urea Nitrogen 22 mg/dL (9-20); Calcium 8.2 mg/dL (8.4-10.2); Carbon Dioxide 30 mmol/L (22-32); Chloride 104 mmol/L (98-107); Estimated Glomerular Filt Rate > 60 mL/min (>60); Globulin 3.1 g/dL (1.7-4.1); Glucose 94 mg/dL (80-110); HEMOLYSIS < 15 (0-50); Potassium 4.2 mmol/L (3.4-5.1); Sodium 139 mmol/L (137-145); Total Protein 6.6 g/dL (6.3-8.2)
[2022-09-25 09:49] LABS: Neutrophils Absolute Manual 616 /uL (3000-5900); Total Cells Counted 100
[2022-09-25 09:50] LABS: Anisocytosis 1+; Smudge Cells 2+
[2022-09-25 09:58] VITALS: BP 120/63; PULSE 69; RESP 16; O2SAT 97
--- NOTE | 2022-09-25 10:01 | PC.NURSE ---
Patient presents with bleeding to center of tongue. Patient states he woke with significant old blood in mouth. States he has not been able to get bleeding to stop this morning, has CLL and has had something similar in the past.
== END 2022-09-25 10:05 | disposition home or self-care (01) ==
PROVIDERS: Emergency Provider Emergency Medicine; PCP Family Medicine
DX: K14.8 Other diseases of tongue (principal); C91.10 Chronic lymphocytic leukemia of B-cell type not having achieved remission
CPT/HCPCS: 36415; 80053; 85007; 85025; 85610; 85730; 99283

== ENCOUNTER → 2022-10-17 15:32 | Outpatient (CLI) | payer MEDICARE, SELFPAY ==
--- NOTE | 2022-10-17 | DI.US.S_ITS ---
PROCEDURE: US AXILLARY ONLY LT COMPARISON: [facility], , CT THORAX/ABDOMEN/PELVIS/SOFT TISSUE NECK, 09/20/2021, 12:57. INDICATIONS: Localized swelling, mass and lump, left upper limb. History of lymphoproliferative disorder. FINDINGS: Multiple enlarged morphologically abnormal lymph nodes in the axilla with hyperemia. The largest measuring up to 6.9 x 3.4 x 3.1 cm in the mid axilla. Another enlarged lymph node at the lateral axilla measures 4.6 x 2.4 x 1.7 cm. Allowing for differences in modality, these are enlarged compared to 2020. IMPRESSION: Multiple enlarged morphologically abnormal lymph nodes in the axilla corresponding to palpable abnormality. Patient was advised at the time of examination to follow up with his oncologist for further imaging. Dictated by: Edward Wall M.D. on 10/17/2022 at 16:41 Approved by: Edward Wall M.D. on 10/17/2022 at 16:43
== END ==
PROVIDERS: PCP Family Medicine; Referring Provider Family Medicine; Visit Provider Family Medicine
DX: R59.0 Localized enlarged lymph nodes (principal)
CPT/HCPCS: 76882

== ENCOUNTER 2022-12-24 05:35 | Emergency (ER) | payer MEDICARE, SELFPAY ==
--- NOTE | 2022-12-24 05:45 | ED.DENTAL ---
HPI - Dental/Oral General Chief complaint: Dental/Oral Stated complaint: tongue bleeding Time Seen by Provider: 12/24/22 05:45 Source: patient and RN notes reviewed Mode of arrival: Ambulatory Limitations: no limitations History of Present Illness HPI Narrative: This is a 77-year-old male with CLL following with Oncology currently on Ibrutinib. Patient states that last night he started having some bleeding from his tongue or mouth. He states that he noticed some clot he eventually spit it out he was able to fall asleep but woke up this morning with some additional clot in his mouth. States it does not seem to be actively bleeding this morning but he was concerned so came to be evaluated. He has had this happen several times before most recently in September and was seen here in the emergency department and had Surgicel applied locally which seemed to stopped the bleeding. Patient denies any other symptoms. He is unaware of any trauma to his mouth. He has not had any excessive bleeding for new locations, no excessive bruising outside his normal. Patient denies fevers, no chest pain, no shortness of breath, no nausea or vomiting. No headaches. No diarrhea, no constipation. No black or bloody stools. Patient states he is feeling well otherwise. Patient states his only other prescription medication is for sleep although he does take several vitamins and supplements. Patient denies any recent surgeries. He follows with Dr. Sorto for oncology. He follows with Dr. Morris for his primary care. Related Data Home Medications Medication Instructions Recorded Confirmed chondroitin sulfate A 250 mg 600 mg PO Q DAY ##0 03/08/17 11/14/22 capsule (Chondroitin Sulfate) fexofenadine 180 mg tablet 180 mg PO DAILY 02/23/21 11/14/22 montelukast 10 mg tablet 10 mg PO DAILY 02/23/21 11/14/22 pravastatin 20 mg tablet 20 mg PO DAILY 02/23/21 11/14/22 zolpidem 5 mg tablet 5 mg PO BEDTIME PRN Insomnia 10/11/21 11/14/22 PreserVision AREDS-2 1 tab BID 01/31/22 11/14/22 multivitamin 1 tab DAILY 01/31/22 11/14/22 ascorbic acid (vitamin C) 1,000 mg 1,000 mg PO Q12H 05/02/22 11/14/22 tablet,extended release (Vitamin C ER) cholecalciferol (vitamin D3) 25 25 mcg PO DAILY 05/02/22 11/14/22 mcg (1,000 unit) capsule (Vitamin D3) cyanocobalamin (vitamin B-12) 1,000 mcg PO DAILY 05/02/22 11/14/22 1,000 mcg tablet (Vitamin B-12) fluoxetine 10 mg capsule 10 mg PO DAILY 05/02/22 11/14/22 folic acid 800 mcg tablet 0.8 mg PO DAILY 05/02/22 11/14/22 glucosamine sulf dipot 1 cap PO DAILY 05/02/22 11/14/22 chlr,msm,chond 550 mg-C 30 mg-paige 1 mg capsule (Glucosamine Chondroitin) loratadine 10 mg capsule 10 mg PO DAILY 05/02/22 11/14/22 selenium 200 mcg capsule 200 mcg PO DAILY 05/02/22 11/14/22 testosterone cypionate 50 mg/mL 50 mg IM WEEKLY 05/02/22 11/14/22 intramuscular oil vitamin B6-vitamin E-magnesium 1 tab PO DAILY 05/02/22 11/14/22 tablet vitamin E 268 mg (400 unit) capsule 400 unit PO DAILY 05/02/22 11/14/22 vitamins A,C,W-kirj-rhnyjr 2,148 2 tab PO DAILY 05/02/22 11/14/22 mcg-113 mg-45 mg-17.4 mg tablet (PreserVision AREDS) Prevagen 1 tab DAILY 11/14/22 11/14/22 Previous Rx's Medication Instructions Recorded ibrutinib 140 mg capsule 420 mg PO DAILY #90 caps 11/14/22 (Imbruvica) Allergies Allergy/AdvReac Type Severity Reaction Status Date / Time levofloxacin AdvReac Severe HALLUCINATI Verified 09/25/22 07:40 ONS Review of Systems Review of Systems ROS Unobtainable: All systems reviewed & are unremarkable except as noted in HPI and below Patient History Medical History BCC (basal cell carcinoma) Fracture of proximal end of right tibia 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 Hypertension MGUS (monoclonal gammopathy of unknown significance) Obesity Surgical History History of carpal tunnel surgery of left wrist History of carpal tunnel surgery of right wrist History of total left knee replacement History of total right knee replacement History of vasectomy Hx of arthroscopy of knee Hx of bilateral cataract extraction Hx of cholecystectomy Hx of foot surgery Hx of repair of left rotator cuff Hx of tonsillectomy Social History household members: spouse Smoking Status: Never smoker alcohol intake: current Smoking Status: Never smoker alcohol intake frequency: 0-2 drinks per day Substance Use Type: does not use Exam Narrative Exam Narrative: GEN: well nourished, well appearing male , alert and oriented x 3, patient appears to be in mild distress. HEENT: Atraumatic, pupils are equal round reactive to light, extraocular movements are intact, nares are clear, TMs are clear with no fluid, there is no conjunctival pallor. Throat is clear without any exudates, erythema, tonsillar enlargement or uvular deviation, patient has a small abrasion on the right anterior mucosa along the edge of his posterior lower right teeth. Also has a small superficial laceration of his left inner lip. Neither 1 is actively bleeding. There are some and areas of bruising in his mouth. No active bleeding or laceration on the tongue itself. Oropharynx is clear. Patient has normal speech, no issues with swallowing secretions or hoarseness. HEART: Regular rate and rhythm without murmur, clicks, rubs. No carotid bruits, pulses are equal in upper and lower extremities LUNGS:Lungs clear to auscultation, no wheezes, rales, crackles, chest moves symmetrically ABD:bowel sounds normal, soft, non-tender, no guarding, rebound, rigidity, no masses noted, no hepatosplenomegaly :No CVA tenderness MSCL: Non-tender, no muscle atrophy, muscles strength 5/5 upper and lower extremities, full range of motion, normal gait NEURO:CN 2-12 intact, sensation normal SKIN: No petechiae, no rash or other skin changes. Initial Vital Signs Initial Vital Signs: Vital Signs Temperature 98.2 F 12/24/22 05:48 Pulse Rate 65 12/24/22 05:48 Respiratory Rate 15 12/24/22 05:48 Blood Pressure 143/67 H 12/24/22 05:48 Pulse Oximetry 98 12/24/22 05:48 Oxygen Delivery Method 12/24/22 05:48 Course Orders Ordered: ED Orders 12/24/22 05:47 CBC Auto Diff [Complete Blood Count AUTO DIFF] Stat CMP [Comprehensive Metabolic Panel] Stat PTT [Partial Thromboplastin Time] Stat Prothrombin Time INR Stat Vital Signs Vital signs: Vital Signs - 8 hr 12/24/22 05:48 Temperature 98.2 F Pulse Rate 65 Respiratory Rate 15 Blood Pressure 143/67 H Pulse Oximetry 98 Oxygen Delivery Method Room Air MDM - Dental/Oral Lab Data 12/24/22 06:00 12/24/22 06:00 Labs: Lab Results 12/24/22 12/24/22 12/24/22 Range/Units 06:00 06:00 06:00 WBC 5.3 (4.5-11.0) X10^3/uL RBC 2.89 L (4.5-5.9) X10^6/uL Hgb 9.9 L (13.5-17.5) g/dL Hct 29.1 L (41-53) % MCV 100.8 H (80-100) fL MCH 34.2 H (26-34) PG MCHC 33.9 (30-36) % RDW 16.7 H (11.6-14.8) % Plt Count 155 (150-400) X10^3/uL Neut % (Auto) Not Reportable Lymph % (Auto) Not Reportable [place] % (Auto) Not Reportable Eos % (Auto) Not Reportable Baso % (Auto) Not Reportable Lymph # (Auto) Not Reportable [place] # (Auto) Not Reportable Baso # (Auto) Not Reportable PT 12.7 (10.1-12.7) SECONDS INR 1.1 (0.9-1.3) APTT 45 H (26-36) SECONDS Sodium 134 L (137-145) mmol/L Potassium 4.1 (3.4-5.1) mmol/L Chloride 101 (98-107) mmol/L Carbon Dioxide 29 (22-32) mmol/L BUN 15 (9-20) mg/dL Creatinine 0.77 (0.66-1.25) mg/dL Estimated GFR > 60 (>60) mL/min BUN/Creatinine Ratio 19.5 (6-22) Glucose 88 (80-110) mg/dL Calcium 8.0 L (8.4-10.2) mg/dL Total Bilirubin 0.8 (0.2-1.3) mg/dL AST 18 (17-59) IU/L ALT 13 (<50) IU/L Alkaline Phosphatase 72 (38-126) U/L Total Protein 6.3 (6.3-8.2) g/dL Albumin 3.3 L (3.5-5.0) g/dL Globulin 3.0 (1.7-4.1) g/dL Albumin/Globulin Ratio 1.1 (1.0-2.8) MDM Narrative Medical decision making narrative: This is a 77-year-old with complaint of bleeding from his mouth that started last night states it is pretty much out but did have some clot in his mouth this morning. No active bleed is visualized but there is an abrasion by his molars posteriorly on the right small laceration on his inner lip. Patient does not recall any specific trauma. He does also have some petechiae and bruising with in his mouth as well. Patient has known CLL he is on medication/chemotherapy and has not had any issues for several months. Patient's labs were obtained he is anemic but close to his baseline. Platelets are 155, WBC is 5.3. Coags show a PTT of 45 similar to priors from September, INR is normal. Patient's CMP shows calcium at 8 and albumin 3.3. Patient has not have any additional bleeding after being monitored. Discussed return precautions. Discharge Plan Departure Patient Disposition: Home Clinical Impression: CLL (chronic lymphocytic leukemia) Activity Restrictions/Additional Instructions: Your labs are included with your discharge paperwork. Please return if you have recurrent bleeding, new significant bruising, black or bloody stools, coughing of blood or other new or concerning changes. Prescriptions: No Action Chondroitin Sulfate 250 MG capsule 600 mg PO Q DAY Qty: 0 zolpidem 5 mg tablet 5 mg PO BEDTIME PRN (Reason: Insomnia) fexofenadine 180 mg Tablet 180 mg PO DAILY montelukast 10 mg Tablet 10 mg PO DAILY pravastatin 20 mg Tablet 20 mg PO DAILY multivitamin Tablet 1 tab DAILY PreserVision AREDS-2 1 tab BID Vitamin C 1,000 mg Tablet Extended Release 1,000 mg PO Q12H cyanocobalamin (vitamin B-12) [Vitamin B-12] 1,000 mcg Tablet 1,000 mcg PO DAILY fluoxetine 10 mg Capsule 10 mg PO DAILY vitamin E 400 unit Capsule 400 unit PO DAILY folic acid 800 mcg Tablet 0.8 mg PO DAILY cholecalciferol (vitamin D3) [Vitamin D3] 25 mcg (1,000 unit) Capsule 25 mcg PO DAILY vitamin B6-vitamin E-magnesium Tablet 1 tab PO DAILY loratadine 10 mg Capsule 10 mg PO DAILY PreserVision AREDS 7,160 unit- 113 mg-100 unit Tablet 2 tab PO DAILY Rx Instructions: administer with AM and PM meals selenium 200 mcg Capsule 200 mcg PO DAILY Glucosamine Chondroitin 550-30-1 mg Capsule 1 cap PO DAILY testosterone cypionate 50 mg/mL Oil 50 mg IM WEEKLY Prevagen 1 tab DAILY Imbruvica 140 mg Capsule 420 mg PO DAILY Qty: 90 3RF Rx Instructions: Take 3 capsules daily Referrals: Salinas Morris MD [Primary Care Provider] - Stand Alone Forms: Patient Portal/API
[2022-12-24 05:48] VITALS: BP 143/67; PULSE 65; RESP 15; TEMP 36.8; O2SAT 98; BMI 27.5
[2022-12-24 06:17] LABS: Add Manual Diff / Slide Review YES; Hematocrit 29.1 % (41-53); Hemoglobin 9.9 g/dL (13.5-17.5); Mean Corpuscular HGB Conc 33.9 % (30-36); Mean Corpuscular Hemoglobin 34.2 PG (26-34); Mean Corpuscular Volume 100.8 fL (80-100); Platelet Count 155 X10^3/uL (150-400); Red Blood Cell Count 2.89 X10^6/uL (4.5-5.9); Red Cell Distribution Width 16.7 % (11.6-14.8); White Blood Cell Count 5.3 X10^3/uL (4.5-11.0)
[2022-12-24 06:18] LABS: INR 1.1 (0.9-1.3); Prothrombin Time 12.7 SECONDS (10.1-12.7)
[2022-12-24 06:20] LABS: PTT Partial Thromboplastin Tim 45 SECONDS (26-36)
[2022-12-24 06:22] LABS: Alanine Aminotransferase 13 IU/L (<50); Albumin 3.3 g/dL (3.5-5.0); Albumin Globulin Ratio 1.1 (1.0-2.8); Alkaline Phosphatase 72 U/L (38-126); Aspartate Aminotransferase 18 IU/L (17-59); BUN Creatinine Ratio 19.5 (6-22); Bilirubin Total 0.8 mg/dL (0.2-1.3); Blood Urea Nitrogen 15 mg/dL (9-20); Carbon Dioxide 29 mmol/L (22-32); Chloride 101 mmol/L (98-107); Estimated Glomerular Filt Rate > 60 mL/min (>60); Glucose 88 mg/dL (80-110); HEMOLYSIS < 15 (0-50); Potassium 4.1 mmol/L (3.4-5.1); Sodium 134 mmol/L (137-145); Total Protein 6.3 g/dL (6.3-8.2)
--- NOTE | 2022-12-24 06:24 | PC.NURSE ---
Pt has multiple areas on check which appeared to be bitten, no active bleeding seen at this time. denies any pain at this time. more sores on right side of cheek
[2022-12-24 06:42] VITALS: BP 111/53; PULSE 60; RESP 15; O2SAT 99
[2022-12-24 07:28] LABS: Macrocytosis 1+; Neutrophils Absolute Manual 424 /uL (3000-5900); Smudge Cells 1+; Total Cells Counted 100
[2022-12-24 07:29] LABS: Anisocytosis 1+
== END 2022-12-24 06:42 | disposition home or self-care (01) ==
PROVIDERS: Emergency Provider Emergency Medicine; PCP Family Medicine
DX: C91.10 Chronic lymphocytic leukemia of B-cell type not having achieved remission (principal); S01.511A Laceration without foreign body of lip, initial encounter
CPT/HCPCS: 36415; 80053; 85007; 85025; 85610; 85730; 99283

== ENCOUNTER 2023-02-07 23:08 | Emergency (ER) | payer MEDICARE, SELFPAY ==
[2023-02-07 23:25] VITALS: BP 160/76; PULSE 78; RESP 20; TEMP 36.4; O2SAT 99; BMI 29.2
[2023-02-07] MEDS: LIDOCAINE 2% W/EPI INJ 20 ML (23:50)
--- NOTE | 2023-02-07 23:52 | ED.WOUNDLAC ---
HPI - Wound/Laceration General Chief Complaint: Wound/Laceration Stated Complaint: biopisy done on rt. shoulder/bleeding Time Seen by Provider: 02/07/23 23:14 Source: patient Mode of arrival: Ambulatory History of Present Illness HPI narrative: 77M nonsmoker with history of CLL presents with his daughter and a chief complaint of bleeding from a biopsy site. He was in his primary care office earlier today and had a biopsy that was closed with 2 sutures. This evening when preparing for bed he noticed that he had painless bleeding through the dressing. He is not dizzy nor weak or lightheaded. He denies chest pain or shortness of breath. He denies any fever, chills or pain. He does not take blood thinners. Related Data Home Medications Medication Instructions Recorded Confirmed chondroitin sulfate A 250 mg 600 mg PO Q DAY ##0 03/08/17 01/23/23 capsule (Chondroitin Sulfate) fexofenadine 180 mg tablet 180 mg PO DAILY 02/23/21 01/23/23 montelukast 10 mg tablet 10 mg PO DAILY 02/23/21 01/23/23 pravastatin 20 mg tablet 20 mg PO DAILY 02/23/21 01/23/23 zolpidem 5 mg tablet 5 mg PO BEDTIME PRN Insomnia 10/11/21 01/23/23 PreserVision AREDS-2 1 tab BID 01/31/22 01/23/23 multivitamin 1 tab DAILY 01/31/22 01/23/23 ascorbic acid (vitamin C) 1,000 mg 1,000 mg PO Q12H 05/02/22 01/23/23 tablet,extended release (Vitamin C ER) cholecalciferol (vitamin D3) 25 25 mcg PO DAILY 05/02/22 01/23/23 mcg (1,000 unit) capsule (Vitamin D3) cyanocobalamin (vitamin B-12) 1,000 mcg PO DAILY 05/02/22 01/23/23 1,000 mcg tablet (Vitamin B-12) fluoxetine 10 mg capsule 10 mg PO DAILY 05/02/22 01/23/23 folic acid 800 mcg tablet 0.8 mg PO DAILY 05/02/22 01/23/23 glucosamine sulf dipot 1 cap PO DAILY 05/02/22 01/23/23 chlr,msm,chond 550 mg-C 30 mg-paige 1 mg capsule (Glucosamine Chondroitin) loratadine 10 mg capsule 10 mg PO DAILY 05/02/22 01/23/23 selenium 200 mcg capsule 200 mcg PO DAILY 05/02/22 01/23/23 testosterone cypionate 50 mg/mL 50 mg IM WEEKLY 05/02/22 01/23/23 intramuscular oil vitamin B6-vitamin E-magnesium 1 tab PO DAILY 05/02/22 01/23/23 tablet vitamin E 268 mg (400 unit) capsule 400 unit PO DAILY 05/02/22 01/23/23 vitamins A,C,D-yvur-wnnoaa 2,148 2 tab PO DAILY 05/02/22 01/23/23 mcg-113 mg-45 mg-17.4 mg tablet (PreserVision AREDS) Prevagen 1 tab DAILY 11/14/22 01/23/23 Previous Rx's Medication Instructions Recorded ibrutinib 140 mg capsule 420 mg PO DAILY #90 caps 11/14/22 (Imbruvica) Allergies Allergy/AdvReac Type Severity Reaction Status Date / Time levofloxacin AdvReac Severe HALLUCINATI Verified 02/07/23 23:41 ONS Review of Systems Review of Systems Narrative: GENERAL: Denies chills, fatigue, malaise, fever, sweats. HEENT: Denies sinus pain, ear pain, sore throat, difficulty swallowing, dizziness. RESPIRATORY: Denies dyspnea, cough, wheezing, hemoptysis, sputum. CARDIOVASCULAR: Denies chest pain, palpitations, orthopnea, edema, GASTROINTESTINAL: Denies nausea, vomiting, abdominal pain, diarrhea, constipation, melena. : Denies dysuria, frequency, incontinence, hematuria, urinary retention. MUSCULOSKELETAL: denies weakness, joint pain, or bony pain SKIN: see HPI NEUROLOGIC: Denies weakness, headache, numbness, change in speech, confusion, seizures, incoordination. PSYCHIATRIC: No concerning psychosocial issues. 12 point review of systems is negative except for those stated above Patient History Medical History BCC (basal cell carcinoma) Fracture of proximal end of right tibia 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 Hypertension MGUS (monoclonal gammopathy of unknown significance) Obesity Surgical History History of carpal tunnel surgery of left wrist History of carpal tunnel surgery of right wrist History of total left knee replacement History of total right knee replacement History of vasectomy Hx of arthroscopy of knee Hx of bilateral cataract extraction Hx of cholecystectomy Hx of foot surgery Hx of repair of left rotator cuff Hx of tonsillectomy Social History household members: spouse Smoking Status: Never smoker alcohol intake: current Smoking Status: Never smoker alcohol intake frequency: a few times a week Substance Use Type: does not use Exam Narrative Exam Narrative: GEN: AOx3 and in mild distress EYES: Pupils are equal, round, and reactive to light and accommodation. Extraoccular muscles are intact bilaterally. There is no subconjunctival hemorrhage or exudate. CHEST: Lungs are clear to auscultation bilaterally and free of wheezes, rales, or rhonchi. Heart rate is regular rhythm, there are no murmurs, clicks, rubs, or gallops. There is no chest wall tenderness. ABD: Abdomen is soft and nontender. There is no guarding or rebound. Bowel sounds are normal in all 4 quadrants. There is no mass or organomegaly. EXT: Full painless ROM of all extremities with no loss of sensation or strength. SKIN: Biopsy site overlying right scapula with small arterial bleed, easily controlled with pressure, will require a deep suture for hemostasis Initial Vital Signs Initial Vital Signs: Vital Signs Temperature 97.6 F 02/07/23 23:25 Pulse Rate 78 02/07/23 23:25 Respiratory Rate 20 02/07/23 23:25 Blood Pressure 160/76 H 02/07/23 23:25 Pulse Oximetry 99 02/07/23 23:25 Oxygen Delivery Method Room Air 02/07/23 23:25 Procedures Laceration Repair Laceration 1: Site: back Side (If applicable): right Size (cm): 0.5 Depth: simple, single layer Local Anesthetic: lidocaine 1% and with epi Amount of anesthesia used (mL): 4 Pre-repair: wound explored Skin layer closed with: nylon Skin layer suture size: 4-0 (for hemostasis only) Course Vital Signs Vital signs: Vital Signs - 8 hr 02/07/23 23:25 Temperature 97.6 F Pulse Rate 78 Respiratory Rate 20 Blood Pressure 160/76 H Pulse Oximetry 99 Oxygen Delivery Method Room Air MDM - Wound/Laceration MDM Narrative Medical decision making narrative: [77] year old patient presents with bleeding from biopsy Multiple etiologies for patient's symptoms considered including, but not limited to: [Bleeding from biopsy versus other] Prior Charts reviewed in our EMR Primary Historian: patient Patient's symptoms improved over duration of stay with above-stated therapies. Findings and discharge diagnosis discussed with patient/family followed by verbalization of understanding Return precautions discussed with patient/family whom verbalize understanding of diagnosis and plan Discharge Plan Departure Patient Disposition: Home Clinical Impression: Bleeding from wound Instructions: DI for Laceration Repair Activity Restrictions/Additional Instructions: *You have been diagnosed with [bleeding from biopsy site] *What to do: *Please continue to take your regular medications as directed. [ ] New medication prescriptions sent to your pharmacy: [ ] [ ] New medication written as a paper prescription [ ] No new medications given * please follow-up with Dr. Morris to have sutures removed as previously planned *Return to Emergency Department if you should have any new, worsening or concerning symptoms, such as [fever greater than 101 F, shaking chills, worsening pain, persistent bleeding after 20 minutes of pressure or other bothersome symptoms Prescriptions: No Action Chondroitin Sulfate 250 MG capsule 600 mg PO Q DAY Qty: 0 zolpidem 5 mg tablet 5 mg PO BEDTIME PRN (Reason: Insomnia) fexofenadine 180 mg Tablet 180 mg PO DAILY montelukast 10 mg Tablet 10 mg PO DAILY pravastatin 20 mg Tablet 20 mg PO DAILY multivitamin Tablet 1 tab DAILY PreserVision AREDS-2 1 tab BID Vitamin C 1,000 mg Tablet Extended Release 1,000 mg PO Q12H cyanocobalamin (vitamin B-12) [Vitamin B-12] 1,000 mcg Tablet 1,000 mcg PO DAILY fluoxetine 10 mg Capsule 10 mg PO DAILY vitamin E 400 unit Capsule 400 unit PO DAILY folic acid 800 mcg Tablet 0.8 mg PO DAILY cholecalciferol (vitamin D3) [Vitamin D3] 25 mcg (1,000 unit) Capsule 25 mcg PO DAILY vitamin B6-vitamin E-magnesium Tablet 1 tab PO DAILY loratadine 10 mg Capsule 10 mg PO DAILY PreserVision AREDS 7,160 unit- 113 mg-100 unit Tablet 2 tab PO DAILY Rx Instructions: administer with AM and PM meals selenium 200 mcg Capsule 200 mcg PO DAILY Glucosamine Chondroitin 550-30-1 mg Capsule 1 cap PO DAILY testosterone cypionate 50 mg/mL Oil 50 mg IM WEEKLY Prevagen 1 tab DAILY Imbruvica 140 mg Capsule 420 mg PO DAILY Qty: 90 3RF Rx Instructions: Take 3 capsules daily Referrals: Salinas Morris MD [Primary Care Provider] - Stand Alone Forms: Patient Portal/API
== END 2023-02-08 00:05 | disposition home or self-care (01) ==
PROVIDERS: Emergency Provider Emergency Medicine; PCP Family Medicine
DX: L76.21 Postprocedural hemorrhage of skin and subcutaneous tissue following a dermatologic procedure (principal)
CPT/HCPCS: 12001; 99281; 99283

== ENCOUNTER 2023-03-13 21:35 | Emergency (ER) | payer MEDICARE, SELFPAY ==
[2023-03-13] VITALS (8 sets, daily range): BP systolic 99–127; BP diastolic 57–82; PULSE 76–103; RESP 16; TEMP 37.1; O2SAT 98–100; BMI 29.1
--- NOTE | 2023-03-13 22:37 | ED.RECABL ---
HPI - Recheck/Abnormal Lab/Rx General Chief Complaint: Recheck/Abnormal Lab/Rx Stated Complaint: stitches got pulled out- Time Seen by Provider: 03/13/23 22:16 Source: patient and family Mode of arrival: Ambulatory History of Present Illness HPI narrative: 77-year-old gentleman with a history of CLL, seasonal allergies, depression and basal cell excision earlier today in the clinic. The incision itself went well and this evening he noticed that he was having bleeding from the wound that was not stopping with appropriate pressure then pressure dressing. He comes in for further evaluation. Is not complaining of chest pain, palpitations, tachycardia, dizziness or orthostatic issues. The wound does continue to bleed even with firm pressure placed at the wound itself. The bleeding is definitely venous with no arterial component appreciated. Related Data Home Medications Medication Instructions Recorded Confirmed chondroitin sulfate A 250 mg 600 mg PO Q DAY ##0 03/08/17 01/23/23 capsule (Chondroitin Sulfate) fexofenadine 180 mg tablet 180 mg PO DAILY 02/23/21 01/23/23 montelukast 10 mg tablet 10 mg PO DAILY 02/23/21 01/23/23 pravastatin 20 mg tablet 20 mg PO DAILY 02/23/21 01/23/23 zolpidem 5 mg tablet 5 mg PO BEDTIME PRN Insomnia 10/11/21 01/23/23 PreserVision AREDS-2 1 tab BID 01/31/22 01/23/23 multivitamin 1 tab DAILY 01/31/22 01/23/23 ascorbic acid (vitamin C) 1,000 mg 1,000 mg PO Q12H 05/02/22 01/23/23 tablet,extended release (Vitamin C ER) cholecalciferol (vitamin D3) 25 25 mcg PO DAILY 05/02/22 01/23/23 mcg (1,000 unit) capsule (Vitamin D3) cyanocobalamin (vitamin B-12) 1,000 mcg PO DAILY 05/02/22 01/23/23 1,000 mcg tablet (Vitamin B-12) fluoxetine 10 mg capsule 10 mg PO DAILY 05/02/22 01/23/23 folic acid 800 mcg tablet 0.8 mg PO DAILY 05/02/22 01/23/23 glucosamine sulf dipot 1 cap PO DAILY 05/02/22 01/23/23 chlr,msm,chond 550 mg-C 30 mg-paige 1 mg capsule (Glucosamine Chondroitin) loratadine 10 mg capsule 10 mg PO DAILY 05/02/22 01/23/23 selenium 200 mcg capsule 200 mcg PO DAILY 05/02/22 01/23/23 testosterone cypionate 50 mg/mL 50 mg IM WEEKLY 05/02/22 01/23/23 intramuscular oil vitamin B6-vitamin E-magnesium 1 tab PO DAILY 05/02/22 01/23/23 tablet vitamin E 268 mg (400 unit) capsule 400 unit PO DAILY 05/02/22 01/23/23 vitamins A,C,J-sxls-zazhfu 2,148 2 tab PO DAILY 05/02/22 01/23/23 mcg-113 mg-45 mg-17.4 mg tablet (PreserVision AREDS) Prevagen 1 tab DAILY 11/14/22 01/23/23 Previous Rx's Medication Instructions Recorded ibrutinib 140 mg capsule 420 mg PO DAILY #90 caps 02/27/23 (Imbruvica) Allergies Allergy/AdvReac Type Severity Reaction Status Date / Time levofloxacin AdvReac Severe HALLUCINATI Verified 02/07/23 23:41 ONS Review of Systems Review of Systems Narrative: Pertinent positive and negative findings as per HPI Patient History Medical History BCC (basal cell carcinoma) Fracture of proximal end of right tibia 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 Hypertension MGUS (monoclonal gammopathy of unknown significance) Obesity Surgical History History of carpal tunnel surgery of left wrist History of carpal tunnel surgery of right wrist History of total left knee replacement History of total right knee replacement History of vasectomy Hx of arthroscopy of knee Hx of bilateral cataract extraction Hx of cholecystectomy Hx of foot surgery Hx of repair of left rotator cuff Hx of tonsillectomy Social History household members: spouse Smoking Status: Never smoker alcohol intake: current Smoking Status: Never smoker alcohol intake frequency: a few times a week Substance Use Type: does not use Exam Initial Vital Signs Initial Vital Signs: Vital Signs Temperature 98.8 F 03/13/23 21:48 Pulse Rate 78 03/13/23 21:48 Respiratory Rate 16 05/09/23 21:48 Blood Pressure 127/82 03/13/23 21:48 Pulse Oximetry 100 03/13/23 21:48 Oxygen Delivery Method Room Air 03/13/23 21:48 General: Alert appropriate in no acute distress Respiratory: Able to speak in full sentences, no obvious respiratory distress Skin: No obvious rashes, warm and dry. Wound from basal cell excision over the right scapular area with a minor amount of ecchymosis around the area significant oozing from the medial portion of the wound that does not respond to pressure. There is no arterial component Neurologic: Grossly intact no obvious asymmetries or abnormalities Psych: appropriate insight and affect, cooperative Procedures Laceration Repair basal cell excision Right scapula: Time of procedure: 23:43 Site: back Side (If applicable): right Size (cm): 8 Description: other (bleeding through sutures in place) Local Anesthetic: lidocaine 1% Amount of anesthesia used (mL): 8 Skin layer closed with: nylon Skin layer suture size: other (1-0) Number of sutures: 4 Technique: horizontal mattress (very large, under wound for hemostasis) Course Orders Ordered: Discontinued Medications Lidocaine HCl (Lidocaine 1% 20 Ml) 20 ml INJ INTRA-OP ONE Stop: 03/13/23 22:25 Last Admin: 03/13/23 23:23 Dose: 20 ml Documented By: MARITZA Vital Signs Vital signs: Vital Signs - 8 hr 03/13/23 21:48 03/13/23 21:51 03/13/23 22:00 Temperature 98.8 F Pulse Rate 78 103 H 93 H Respiratory Rate 16 Blood Pressure 127/82 Pulse Oximetry 100 100 99 Oxygen Delivery Method Room Air 03/13/23 22:16 03/13/23 22:16 03/13/23 22:30 Temperature Pulse Rate 100 H 85 Respiratory Rate Blood Pressure 123/73 Pulse Oximetry 98 98 Oxygen Delivery Method 03/13/23 22:59 03/13/23 22:59 03/13/23 23:00 Temperature Pulse Rate 76 Respiratory Rate Blood Pressure 99/69 123/64 Pulse Oximetry 98 Oxygen Delivery Method Room Air MDM - Recheck/Abnormal Lab/Rx MDM Narrative Medical decision making narrative: CC: Brisk continued bleeding/oozing from basal cell removal site over his right scapula. This is an acute problem uncertain prognosis Complicating co-morbidities: CLL, basal cell cancer Data collected from: patient, daughter Differential considered: Arterial bleeding, coagulopathy Exam documented above, pertinent findings include: Nicely sutured wound with significant oozing from the wound. No significant hematoma collecting under the wound. Some minor appropriate bruising around the edges of the wound. Treatments: Area is anesthetized and using 1 0 nylon on a TP-1 needle, 3 large deep horizontal mattress sutures were placed for hemostasis. A smaller horizontal mattress was placed in the medial corner for additional bleeding. This combination seemed to finally result in no additional blood loss. Re-evaluations: Pressure dressing is placed, patient is re-evaluated approximately 45 minutes later and bleeding is still controlled. He is safe for discharge home Discussion: 77-year-old gentleman with basal cell skin cancer removed earlier today with the wound having significant bleeding. He apparently has had multiple bleeding issues previously he is not on blood thinner however he does have CLL. Last platelets and coagulopathy studies demonstrated reasonable levels. With hemostatic sutures placed, the bleeding was controlled, pain was controlled and patient is discharged home. I did suggest that he follow up with his primary care physician. Hemostatic sutures may be able to be removed in 2-3 days and the overall healing process may be much more comfortable with these deeper and rather tight sutures removed. Will follow-up with his primary care doctor and return to the ER if there are any issues otherwise. Discharge Plan Departure Patient Disposition: Home Clinical Impression: Post-operative haemorrhage Qualifiers: Surgical complication system/body Area: musculoskeletal system Procedure type: musculoskeletal Qualified Code(s): M96.830 - Postprocedural hemorrhage of a musculoskeletal structure following a musculoskeletal system procedure Activity Restrictions/Additional Instructions: Thank you for coming in today There was still quite a bit of bleeding coming through the wound from your basal cell excision. Despite appropriate pressure, repeat pressure dressings bleeding did not stop. I used the large and thick suture underneath the initial closure to stop the bleeding. These giant sutures will need to be removed in 2-3 days. The initially placed sutures for wound closure need to stay for at least 10 more days if not longer. Please contact Dr. Morris's office tomorrow to schedule an appointment for Sunday and have him look at the wound and evaluate the additional sutures that were placed to stop the bleeding. If you are noticing increasing redness, purulent drainage or pain you need to be seen sooner. If you continue to have bleeding or develop any new concerns, please feel free to return to the ER Prescriptions: No Action Chondroitin Sulfate 250 MG capsule 600 mg PO Q DAY Qty: 0 zolpidem 5 mg tablet 5 mg PO BEDTIME PRN (Reason: Insomnia) fexofenadine 180 mg Tablet 180 mg PO DAILY montelukast 10 mg Tablet 10 mg PO DAILY pravastatin 20 mg Tablet 20 mg PO DAILY multivitamin Tablet 1 tab DAILY PreserVision AREDS-2 1 tab BID Vitamin C 1,000 mg Tablet Extended Release 1,000 mg PO Q12H cyanocobalamin (vitamin B-12) [Vitamin B-12] 1,000 mcg Tablet 1,000 mcg PO DAILY fluoxetine 10 mg Capsule 10 mg PO DAILY vitamin E 400 unit Capsule 400 unit PO DAILY folic acid 800 mcg Tablet 0.8 mg PO DAILY cholecalciferol (vitamin D3) [Vitamin D3] 25 mcg (1,000 unit) Capsule 25 mcg PO DAILY vitamin B6-vitamin E-magnesium Tablet 1 tab PO DAILY loratadine 10 mg Capsule 10 mg PO DAILY PreserVision AREDS 7,160 unit- 113 mg-100 unit Tablet 2 tab PO DAILY Rx Instructions: administer with AM and PM meals selenium 200 mcg Capsule 200 mcg PO DAILY Glucosamine Chondroitin 550-30-1 mg Capsule 1 cap PO DAILY testosterone cypionate 50 mg/mL Oil 50 mg IM WEEKLY Prevagen 1 tab DAILY Imbruvica 140 mg Capsule 420 mg PO DAILY Qty: 90 3RF Rx Instructions: Take 3 capsules daily Referrals: Salinas Morris MD [Primary Care Provider] - Stand Alone Forms: Patient Portal/API
[2023-03-13] MEDS: LIDOCAINE 1% 20 ML INJ (23:23)
== END 2023-03-13 23:44 | disposition home or self-care (01) ==
PROVIDERS: Emergency Provider Emergency Medicine; PCP Family Medicine
DX: M96.830 Postprocedural hemorrhage of a musculoskeletal structure following a musculoskeletal system procedure (principal)
CPT/HCPCS: 12004; 99282; 99283

== ENCOUNTER → 2023-07-11 12:57 | Outpatient (CLI) | payer MEDICARE, SELFPAY ==
--- NOTE | 2023-07-11 | DI.CT.S_ITS ---
PROCEDURE: CT ABDOMEN PELVIS W CON INDICATIONS: 77-year-old male with history of the probe pleura for the disorder TECHNIQUE: After the administration of intravenous contrast, axial sections acquired from the lung bases to the pubic symphysis. Coronal and sagittal reformats were performed. For radiation dose reduction, the following was used: automated exposure control, adjustment of mA and/or kV according to patient size. COMPARISON: [facility], , CT THORAX/ABDOMEN/PELVIS/SOFT TISSUE NECK, 09/20/2021, 12:57. FINDINGS: Lower thorax: Bibasilar pulmonary nodules are similar prior exam measure up to 6 mm in the left lower lobe Liver: Normal in size and attenuation. No contour deformity present. Biliary system: Cholecystectomy. No intra or extrahepatic bile duct dilation. Eliud hepatis adenopathy noted Pancreas: Unremarkable without mass or inflammation evident. Spleen: Normal in size and density. Adrenals: Normal morphology and density. Reproductive system: Unremarkable as visualized. Urinary system: Both kidneys appropriate in size. Nonobstructive right renal calculi are subcentimeter. No hydronephrosis. Gastrointestinal system: The bowel is unremarkable without evidence of bowel obstruction or inflammation. The stomach appears unremarkable. Multiple diverticula arise from the sigmoid colon without evidence of diverticulitis. Appendix: No findings to suggest acute appendicitis. Peritoneal spaces: Bulky retroperitoneal adenopathy is significantly increased from the prior exam now measures up to 6.7 x 7.6 cm displacing abdominal aorta. Right pelvic sidewall adenopathy in the iliac chains measures up to 5.3 cm. Bilateral inguinal adenopathy noted as well Vasculature: The IVC, aorta and iliac vasculature are unremarkable. Abdominal wall: Abdominal wall intact without evidence of ventral or inguinal hernias. Musculoskeletal: Bridging anterior osteophytes without significant disc space narrowing. Moderate hypertrophic facet joints throughout the lumbar spine. Degenerative changes noted involving the bilateral sacroiliac joints. IMPRESSION: Lymphoma. Bulky retroperitoneal, right iliac, and bilateral inguinal adenopathy is most consistent with lymphoma, increased in size from the prior exam Degenerative changes and bridging osteophytes with involvement of the sacroiliac joints reflects either diffuse idiopathic skeletal hyperostosis or ankylosing spondylitis Approved by: Yared Back M.D. on 07/11/2023 at 18:30
== END ==
PROVIDERS: PCP Family Medicine; Referring Provider Family Medicine; Visit Provider Family Medicine
DX: C85.95 Non-Hodgkin lymphoma, unspecified, lymph nodes of inguinal region and lower limb (principal); C91.10 Chronic lymphocytic leukemia of B-cell type not having achieved remission; R63.4 Abnormal weight loss; M47.818 Spondylosis without myelopathy or radiculopathy, sacral and sacrococcygeal region; R91.8 Other nonspecific abnormal finding of lung field; K57.30 Diverticulosis of large intestine without perforation or abscess without bleeding
CPT/HCPCS: 74177; Q9967

== ENCOUNTER 2023-07-27 18:11 | Inpatient (IN) | payer MEDICARE, SELFPAY ==
[2023-07-27] VITALS (17 sets, daily range): BP systolic 88–102; BP diastolic 51–59; PULSE 95–159; RESP 0–34; TEMP 36.8–37.8; O2SAT 94–97; BMI 29.2
--- NOTE | 2023-07-27 18:23 | DI.CT.S_ITS ---
PROCEDURE: CT HEAD/BRAIN WO CON INDICATIONS: Multiple falls. TECHNIQUE: Noncontrast 4.5 mm thick angled axial sections acquired from the foramen magnum to the vertex, with coronal and sagittal reformats. For radiation dose reduction, the following was used: automated exposure control, adjustment of mA and/or kV according to patient size. COMPARISON: None. FINDINGS: Image quality: Mild streak artifact can be seen through the skull base. CSF spaces: Basal cisterns are patent. No extra-axial fluid collections. The ventricles are symmetric in size and shape. Brain: No intracranial bleeds or masses. There is cerebral volume loss for age, with resultant ventricular and sulcal prominence. There are periventricular and deep white matter chronic small vessel ischemic changes. There is intracranial internal carotid artery atherosclerosis. Skull and face: Calvarium and visualized facial bones appear intact, without suspicious lesions. Sinuses: Visualized sinuses and mastoids are clear. IMPRESSION: No acute intracranial hemorrhage is seen. No acute intracranial process is seen. Dictated by: Chaitanya Gilbert M.D. on 07/27/2023 at 18:25 Approved by: Chaitanya Gilbert M.D. on 07/27/2023 at 18:25
--- NOTE | 2023-07-27 18:23 | DI.RAD.S_ITS ---
PROCEDURE: XR CHEST 1V INDICATIONS: sepsis TECHNIQUE: One view of the chest was acquired. COMPARISON: [facility], CT, CT ABDOMEN PELVIS W CON, 07/11/2023, 14:42. [facility], CR, XR CHEST 2V, 09/12/2021, 15:56. [facility], CR, CHEST 2 VIEW, 02/25/2014, 14:50. FINDINGS: Surgical changes and devices: None. Lungs and pleura: Hazy right basilar airspace opacity. Increased pulmonary markings. Mediastinum: Mediastinal contours appear normal. Heart size is normal. Bones and chest wall: No suspicious bony lesions. Overlying soft tissues appear unremarkable. IMPRESSION: Hazy right basilar airspace opacity. This could represent atelectasis or developing infection. Increased pulmonary markings, possibly mild pulmonary edema. Dictated by: Pankaj Villafuerte M.D. on 07/27/2023 at 19:17 Approved by: Pankaj Villafuerte M.D. on 07/27/2023 at 19:19
--- NOTE | 2023-07-27 18:36 | ED_ITS ---
HPI - Weakness General Chief complaint: Weakness Stated complaint: fever, multiple falls, weakness Time Seen by Provider: 07/27/23 18:23 Source: patient and EMS Mode of arrival: EMS History of Present Illness HPI Narrative: Patient is a 77-year-old male history CLL currently ibrutinib, presenting today with generalized weakness and falls. He lives by himself he is normally able to do daily living activities. However EMS reports that they been out to his house multiple times over the past few days. He has fallen no significant injuries he does not think he is hit his head. He was found to be hypotensive and felt warm with EMS. He was ultimately brought in for evaluation. Has no chest pain or cough no sore throat no abdominal pain nausea or vomiting he does not think he has had a fever. Currently in atrial fibrillation with no prior history of AFib. Related Data Home Medications Medication Instructions Recorded Confirmed chondroitin sulfate A 250 mg 600 mg PO Q DAY ##0 03/08/17 07/28/23 capsule (Chondroitin Sulfate) fexofenadine 180 mg tablet 180 mg PO DAILY 02/23/21 07/28/23 montelukast 10 mg tablet 10 mg PO DAILY PRN asthma. 02/23/21 07/28/23 pravastatin 20 mg tablet 20 mg PO DAILY 02/23/21 07/28/23 zolpidem 5 mg tablet 5 mg PO BEDTIME PRN Insomnia 10/11/21 07/28/23 PreserVision AREDS-2 1 tab BID 01/31/22 07/28/23 multivitamin 1 tab DAILY 01/31/22 07/28/23 ascorbic acid (vitamin C) 1,000 mg 1,000 mg PO Q12H 05/02/22 07/28/23 tablet,extended release (Vitamin C ER) cholecalciferol (vitamin D3) 25 25 mcg PO DAILY 05/02/22 07/28/23 mcg (1,000 unit) capsule (Vitamin D3) cyanocobalamin (vitamin B-12) 1,000 mcg PO DAILY 05/02/22 07/28/23 1,000 mcg tablet (Vitamin B-12) fluoxetine 10 mg capsule 10 mg PO DAILY 05/02/22 07/28/23 folic acid 800 mcg tablet 0.8 mg PO DAILY 05/02/22 07/28/23 glucosamine sulf dipot 1 cap PO DAILY 05/02/22 07/28/23 chlr,msm,chond 550 mg-C 30 mg-paige 1 mg capsule (Glucosamine Chondroitin) loratadine 10 mg capsule 10 mg PO DAILY PRN Allergic 05/02/22 07/28/23 Symptoms selenium 200 mcg capsule 200 mcg PO DAILY 05/02/22 07/28/23 testosterone cypionate 50 mg/mL 50 mg IM WEEKLY 05/02/22 07/28/23 intramuscular oil vitamin B6-vitamin E-magnesium 1 tab PO DAILY 05/02/22 07/28/23 tablet vitamin E 268 mg (400 unit) capsule 400 unit PO DAILY 05/02/22 07/28/23 vitamins A,C,E-ajyt-qtpqaf 2,148 2 tab PO DAILY 05/02/22 07/28/23 mcg-113 mg-45 mg-17.4 mg tablet (PreserVision AREDS) Prevagen 1 tab DAILY 11/14/22 07/28/23 vitamin K2 100 mcg capsule 100 mcg PO DAILY 03/27/23 07/28/23 Previous Rx's Medication Instructions Recorded ibrutinib 140 mg capsule 420 mg PO DAILY #90 caps 02/27/23 (Imbruvica) Allergies Allergy/AdvReac Type Severity Reaction Status Date / Time levofloxacin AdvReac Severe HALLUCINATI Verified 07/27/23 18:26 ONS Review of Systems Review of Systems ROS Unobtainable: All systems reviewed & are unremarkable except as noted in HPI and below Patient History Medical History BCC (basal cell carcinoma) Fracture of proximal end of right tibia 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 Hypertension MGUS (monoclonal gammopathy of unknown significance) Obesity Surgical History History of carpal tunnel surgery of left wrist History of carpal tunnel surgery of right wrist History of total left knee replacement History of total right knee replacement History of vasectomy Hx of arthroscopy of knee Hx of bilateral cataract extraction Hx of cholecystectomy Hx of foot surgery Hx of repair of left rotator cuff Hx of tonsillectomy Social History household members: none Smoking Status: Never smoker alcohol intake: current Smoking Status: Never smoker alcohol intake frequency: 0-2 drinks per day Substance Use Type: does not use Exam Initial Vital Signs Initial Vital Signs: Vital Signs Pulse Rate 111 H 07/27/23 18:22 Respiratory Rate 6 L 07/27/23 18:22 Pulse Oximetry 97 07/27/23 18:22 GENERAL: Alert week 77-year-old male HEENT: Head atraumatic,EOMI, pupils reactive, face symmetric, moist mucous membranes CARDIOVASCULAR: Irregular irregular. RESPIRATORY: Breath sounds equal bilaterally, no wheezes rales or rhonchi. ABDOMEN: Soft, nontender. Normoactive bowel sounds all 4 quadrants. No guarding or rebound. EXTREMITIES: Normal range of motion, no clubbing or edema. Neurovascularly intact NEUROLOGICAL: Alert and oriented x4. Diffusely weak SKIN: Warm, dry, no laceration, no petechiae, no rashes or lesions. Course Orders Ordered: ED Orders 07/27/23 18:00 BNP [NT-proBNP (BNP-Adult 18+)] Stat Complete Blood Count AUTO DIFF Stat Comprehensive Metabolic Panel Stat Lactate (Lactic Acid) Stat MAG [Magnesium] Stat Procalcitonin Stat TSH [Thyroid Stimulating Hormone] Stat Troponin & CK Cardiac Panel Stat 07/27/23 18:23 CT head/brain wo con Stat XR chest 1V Stat 07/27/23 18:25 EKG-12 Lead Stat 07/27/23 18:27 Respiratory Panel (Film Array) Stat 07/27/23 18:50 Blood Culture Stat 07/27/23 20:38 CT angio chest PE protocol Stat 07/27/23 21:56 Ictotest Urine Stat Urinalysis and Microscopic Stat Discontinued Medications Lactated Ringer's (Lactated Ringers) 2,612.7 mls @ 870.9 mls/hr 30 ml/kg infuse over 3 hr (2612.7 ml) IV NOW ONE Stop: 07/27/23 22:32 Last Infusion: 07/27/23 22:27 Dose: 0 mls/hr Documented By: Admin: 07/27/23 19:46 Dose: 870.9 mls/hr Documented By: HARLAN Ceftriaxone Sodium 2,000 mg/ (Sodium Chloride) 100 mls @ 200 mls/hr IV NOW ONE Stop: 07/27/23 22:13 Last Infusion: 07/27/23 22:57 Dose: 0 mls/hr Documented By: Admin: 07/27/23 22:27 Dose: 200 mls/hr Documented By: HARLAN Azithromycin 500 mg/ Dextrose 250 mls @ 250 mls/hr IV NOW ONE Stop: 07/27/23 22:13 Last Infusion: 07/28/23 00:03 Dose: 0 mls/hr Documented By: Admin: 07/27/23 23:02 Dose: 250 mls/hr Documented By: HARLAN Vital Signs Vital signs: Vital Signs - 8 hr 07/27/23 18:27 07/27/23 18:22 07/27/23 18:30 Temperature 100.0 F H Pulse Rate 104 H 111 H 101 H Respiratory Rate 19 6 L 0 L Blood Pressure 92/51 L Pulse Oximetry 97 97 96 Oxygen Delivery Method Room Air 07/27/23 19:01 07/27/23 19:02 07/27/23 19:02 Temperature Pulse Rate 102 H 105 H Respiratory Rate 34 H 23 Blood Pressure 93/55 L Pulse Oximetry 94 97 Oxygen Delivery Method 07/27/23 19:30 07/27/23 19:30 07/27/23 19:32 Temperature Pulse Rate 106 H Respiratory Rate 25 H Blood Pressure 88/55 L 95/52 L Pulse Oximetry 95 Oxygen Delivery Method 07/27/23 19:32 07/27/23 20:00 07/27/23 20:00 Temperature Pulse Rate 106 H 159 H Respiratory Rate 22 Blood Pressure 91/51 L Pulse Oximetry 96 96 Oxygen Delivery Method 07/27/23 20:30 07/27/23 20:30 07/27/23 20:57 Temperature Pulse Rate 101 H Respiratory Rate 28 H Blood Pressure 96/51 L 98/53 L Pulse Oximetry 96 Oxygen Delivery Method 07/27/23 20:57 07/27/23 21:00 07/27/23 21:00 Temperature Pulse Rate 95 H 96 H Respiratory Rate Blood Pressure 94/52 L Pulse Oximetry 97 96 Oxygen Delivery Method 07/27/23 21:30 07/27/23 21:30 07/27/23 21:54 Temperature Pulse Rate 104 H Respiratory Rate Blood Pressure 102/59 L 93/52 L Pulse Oximetry Oxygen Delivery Method 07/27/23 21:54 07/27/23 22:00 07/27/23 22:00 Temperature Pulse Rate 98 H 96 H Respiratory Rate Blood Pressure 93/55 L Pulse Oximetry 97 96 Oxygen Delivery Method [facility] - Weakness Lab Data 07/27/23 18:00 07/27/23 18:00 Labs: Lab Results 07/27/23 07/27/23 07/27/23 Range/Units 18:00 18:00 18:00 WBC 3.8 L (4.5-11.0) X10^3/uL RBC 3.96 L (4.5-5.9) X10^6/uL Hgb 9.0 L (13.5-17.5) g/dL Hct 28.4 L (41-53) % MCV 71.7 L (80-100) fL MCH 22.6 L (26-34) PG MCHC 31.6 (30-36) % RDW 21.4 H (11.6-14.8) % Plt Count 260 (150-400) X10^3/uL Neut % (Auto) 67.9 (50-75) % Lymph % (Auto) 8.3 L (25-40) % [place] % (Auto) 22.7 H (3-14) % Eos % (Auto) 0.1 L (2-4) % Baso % (Auto) 1.0 (0-2) % Neut # (Auto) 2600 (4966-4523) /uL Lymph # (Auto) 300 L (1169-8060) /uL [place] # (Auto) 900 (0-900) /uL Eos # (Auto) 0 (0-450) /uL Baso # (Auto) 0 (0-100) /uL RBC Morphology See below Hypochromasia 1+ H Microcytosis 1+ H Sodium 128 L (137-145) mmol/L Potassium 4.1 (3.4-5.1) mmol/L Chloride 97 L (98-107) mmol/L Carbon Dioxide 29 (22-32) mmol/L BUN 17 (9-20) mg/dL Creatinine 0.65 L (0.66-1.25) mg/dL Estimated GFR > 60 (>60) mL/min BUN/Creatinine Ratio 26.2 H (6-22) Glucose 89 (80-110) mg/dL Lactate 1.2 (0.7-2.1) mmol/L Calcium 8.8 (8.4-10.2) mg/dL Magnesium (1.6-2.3) mg/dL Total Bilirubin 1.1 (0.2-1.3) mg/dL AST 70 H (17-59) IU/L ALT 39 (<50) IU/L Alkaline Phosphatase 115 (38-126) U/L Total Creatine Kinase < 20 L (55-170) U/L Troponin I < 0.012 (0.01-0.034) ng/mL NT-Pro-B Natriuret Pep (<450) pg/mL Total Protein 5.8 L (6.3-8.2) g/dL Albumin 2.5 L (3.5-5.0) g/dL Globulin 3.3 (1.7-4.1) g/dL Albumin/Globulin Ratio 0.8 L (1.0-2.8) Procalcitonin 0.08 (<0.5) ng/mL TSH (0.47-4.68) uIU/mL Urine Color Urine Appearance Urine pH (4.5-8.0) Ur Specific [place] (1.000-1.035) Urine Protein (Negative) Urine Glucose (UA) (Negative) g/dL Urine Ketones (NEGATIVE) Urine Occult Blood (Negative) Urine Nitrate (Negative) Urine Bilirubin (NEGATIVE) Ur Bilirubin Confirm (Negative) Urine Urobilinogen (0.2) E.U./dL Ur Leukocyte Esterase (NEGATIVE) Urine RBC (0-5/HPF) Urine WBC (0-5/HPF) Ur Squamous Epith Cells (0-5/HPF) Amorphous Sediment Urine Bacteria (None) Urine Mucus (Negative) Ur Culture Indicated? Chlamy pneumoniae PCR (Not Detect) Adenovirus (PCR) (Not Detect) B. pertussis DNA (PCR) (Not Detecte) B.parapertussis DNA PCR (Not Detecte) Coronavirus OC43 (PCR) (Not Detect) Coronavirus HKU1 (PCR) (Not Detect) Coronavirus 229E (PCR) (Not Detect) SARS-CoV-2 (PCR) (Not Detecte) Coronavirus NL63 (PCR) (Not Detect) Human Metapneumovir PCR (Not Detect) Influenza Type A (PCR) (Not Detect) Influenza Type B (PCR) (Not Detect) M. pneumoniae (PCR) (Not Detect) Parainfluenza 1 (PCR) (Not Detect) Parainfluenza 2 (PCR) (Not Detect) Parainfluenza 3 (PCR) (Not Detect) Parainfluenza 4 (PCR) (Not Detect) RSV (PCR) (Not Detect) Entero/Rhino (PCR) (Not Detect) 07/27/23 07/27/23 07/27/23 Range/Units 18:00 18:00 18:00 WBC (4.5-11.0) X10^3/uL RBC (4.5-5.9) X10^6/uL Hgb (13.5-17.5) g/dL Hct (41-53) % MCV (80-100) fL MCH (26-34) PG MCHC (30-36) % RDW (11.6-14.8) % Plt Count (150-400) X10^3/uL Neut % (Auto) (50-75) % Lymph % (Auto) (25-40) % [place] % (Auto) (3-14) % Eos % (Auto) (2-4) % Baso % (Auto) (0-2) % Neut # (Auto) (1425-4846) /uL Lymph # (Auto) (6877-8818) /uL Vil[place] # (Auto) (0-900) /uL Eos # (Auto) (0-450) /uL Baso # (Auto) (0-100) /uL RBC Morphology Hypochromasia Microcytosis Sodium (137-145) mmol/L Potassium (3.4-5.1) mmol/L Chloride (98-107) mmol/L Carbon Dioxide (22-32) mmol/L BUN (9-20) mg/dL Creatinine (0.66-1.25) mg/dL Estimated GFR (>60) mL/min BUN/Creatinine Ratio (6-22) Glucose (80-110) mg/dL Lactate (0.7-2.1) mmol/L Calcium (8.4-10.2) mg/dL Magnesium 1.7 (1.6-2.3) mg/dL Total Bilirubin (0.2-1.3) mg/dL AST (17-59) IU/L ALT (<50) IU/L Alkaline Phosphatase (38-126) U/L Total Creatine Kinase (55-170) U/L Troponin I (0.01-0.034) ng/mL NT-Pro-B Natriuret Pep 1910 H (<450) pg/mL Total Protein (6.3-8.2) g/dL Albumin (3.5-5.0) g/dL Globulin (1.7-4.1) g/dL Albumin/Globulin Ratio (1.0-2.8) Procalcitonin (<0.5) ng/mL TSH 0.881 (0.47-4.68) uIU/mL Urine Color Urine Appearance Urine pH (4.5-8.0) Ur Specific [place] (1.000-1.035) Urine Protein (Negative) Urine Glucose (UA) (Negative) g/dL Urine Ketones (NEGATIVE) Urine Occult Blood (Negative) Urine Nitrate (Negative) Urine Bilirubin (NEGATIVE) Ur Bilirubin Confirm (Negative) Urine Urobilinogen (0.2) E.U./dL Ur Leukocyte Esterase (NEGATIVE) Urine RBC (0-5/HPF) Urine WBC (0-5/HPF) Ur Squamous Epith Cells (0-5/HPF) Amorphous Sediment Urine Bacteria (None) Urine Mucus (Negative) Ur Culture Indicated? Chlamy pneumoniae PCR (Not Detect) Adenovirus (PCR) (Not Detect) B. pertussis DNA (PCR) (Not Detecte) B.parapertussis DNA PCR (Not Detecte) Coronavirus OC43 (PCR) (Not Detect) Coronavirus HKU1 (PCR) (Not Detect) Coronavirus 229E (PCR) (Not Detect) SARS-CoV-2 (PCR) (Not Detecte) Coronavirus NL63 (PCR) (Not Detect) Human Metapneumovir PCR (Not Detect) Influenza Type A (PCR) (Not Detect) Influenza Type B (PCR) (Not Detect) M. pneumoniae (PCR) (Not Detect) Parainfluenza 1 (PCR) (Not Detect) Parainfluenza 2 (PCR) (Not Detect) Parainfluenza 3 (PCR) (Not Detect) Parainfluenza 4 (PCR) (Not Detect) RSV (PCR) (Not Detect) Entero/Rhino (PCR) (Not Detect) 07/27/23 07/27/23 Range/Units 18:27 21:56 WBC (4.5-11.0) X10^3/uL RBC (4.5-5.9) X10^6/uL Hgb (13.5-17.5) g/dL Hct (41-53) % MCV (80-100) fL MCH (26-34) PG MCHC (30-36) % RDW (11.6-14.8) % Plt Count (150-400) X10^3/uL Neut % (Auto) (50-75) % Lymph % (Auto) (25-40) % Vil[place] % (Auto) (3-14) % Eos % (Auto) (2-4) % Baso % (Auto) (0-2) % Neut # (Auto) (7878-6435) /uL Lymph # (Auto) (9655-7820) /uL [place] # (Auto) (0-900) /uL Eos # (Auto) (0-450) /uL Baso # (Auto) (0-100) /uL RBC Morphology Hypochromasia Microcytosis Sodium (137-145) mmol/L Potassium (3.4-5.1) mmol/L Chloride (98-107) mmol/L Carbon Dioxide (22-32) mmol/L BUN (9-20) mg/dL Creatinine (0.66-1.25) mg/dL Estimated GFR (>60) mL/min BUN/Creatinine Ratio (6-22) Glucose (80-110) mg/dL Lactate (0.7-2.1) mmol/L Calcium (8.4-10.2) mg/dL Magnesium (1.6-2.3) mg/dL Total Bilirubin (0.2-1.3) mg/dL AST (17-59) IU/L ALT (<50) IU/L Alkaline Phosphatase (38-126) U/L Total Creatine Kinase (55-170) U/L Troponin I (0.01-0.034) ng/mL NT-Pro-B Natriuret Pep (<450) pg/mL Total Protein (6.3-8.2) g/dL Albumin (3.5-5.0) g/dL Globulin (1.7-4.1) g/dL Albumin/Globulin Ratio (1.0-2.8) Procalcitonin (<0.5) ng/mL TSH (0.47-4.68) uIU/mL Urine Color Yellow Urine Appearance Clear Urine pH 5.5 (4.5-8.0) Ur Specific [place] 1.020 (1.000-1.035) Urine Protein Trace H (Negative) Urine Glucose (UA) Negative (Negative) g/dL Urine Ketones Trace H (NEGATIVE) Urine Occult Blood 1+ H (Negative) Urine Nitrate Negative (Negative) Urine Bilirubin 1+ H (NEGATIVE) Ur Bilirubin Confirm Negative (Negative) Urine Urobilinogen 4.0 H (0.2) E.U./dL Ur Leukocyte Esterase Negative (NEGATIVE) Urine RBC 1-5/hpf (0-5/HPF) Urine WBC 0-1/hpf (0-5/HPF) Ur Squamous Epith Cells None seen (0-5/HPF) Amorphous Sediment 1+ Urine Bacteria None seen (None) Urine Mucus 2+ H (Negative) Ur Culture Indicated? Cult not indicated Chlamy pneumoniae PCR Not detected (Not Detect) Adenovirus (PCR) Not detected (Not Detect) B. pertussis DNA (PCR) Not detected (Not Detecte) B.parapertussis DNA PCR Not detected (Not Detecte) Coronavirus OC43 (PCR) Not detected (Not Detect) Coronavirus HKU1 (PCR) Not detected (Not Detect) Coronavirus 229E (PCR) Not detected (Not Detect) SARS-CoV-2 (PCR) Not detected (Not Detecte) Coronavirus NL63 (PCR) Not detected (Not Detect) Human Metapneumovir PCR Not detected (Not Detect) Influenza Type A (PCR) Not detected (Not Detect) Influenza Type B (PCR) Not detected (Not Detect) M. pneumoniae (PCR) Not detected (Not Detect) Parainfluenza 1 (PCR) Not detected (Not Detect) Parainfluenza 2 (PCR) Not detected (Not Detect) Parainfluenza 3 (PCR) Not detected (Not Detect) Parainfluenza 4 (PCR) Not detected (Not Detect) RSV (PCR) Not detected (Not Detect) Entero/Rhino (PCR) Detected H (Not Detect) Urine Dip Bedside Urine Glucose Negative Bedside Urine Bilirubin - Negative Bedside Urine Ketone - Negative Urine Specific [place] 1.015 Bedside Urine Occult Blood + Bedside Urine pH 6.0 Bedside Urine Protein +/- 15 Bedside Urine Urobilinogen +/- 1mg Bedside Urine Nitrite - Negative Bedside Urine Leukocytes +/- [address] scan - head: Radiologist Impression: PROCEDURE:? CT HEAD/BRAIN WO CON ? INDICATIONS:? Multiple falls. ? TECHNIQUE:? Noncontrast 4.5 mm thick angled axial sections acquired from the foramen magnum to the vertex, with coronal and sagittal reformats.? For radiation dose reduction, the following was used:? automated exposure control, adjustment of mA and/or kV according to patient size.? ? COMPARISON:? None. ? FINDINGS:? Image quality:? Mild streak artifact can be seen through the skull base.? ? CSF spaces:? Basal cisterns are patent.? No extra-axial fluid collections.? The ventricles are symmetric in size and shape.? ? Brain:? No intracranial bleeds or masses.? There is cerebral volume loss for age, with resultant ventricular and sulcal prominence.? There are periventricular and deep white matter chronic small vessel ischemic changes.? There is intracranial internal carotid artery atherosclerosis.? ? Skull and face:? Calvarium and visualized facial bones appear intact, without suspicious lesions.? ? Sinuses:? Visualized sinuses and mastoids are clear.? IMPRESSION:? No acute intracranial hemorrhage is seen. ? No acute intracranial process is seen. ? Dictated by: Chaitanya Gilbert M.D. on 07/27/2023 at 18:25? CT scan - chest: Radiologist Impression: ADDENDUMThis report includes an Addendum and supersedes previous reports for this exam. ? ? ? PROCEDURE:? CT ANGIO CHEST PE PROTOCOL ? INDICATIONS:? New onset afib; hypotension ? TECHNIQUE:? After the administration of intravenous contrast, 2 mm thick sections acquired from the pulmonary apices to the posterior costophrenic angles.? 3-dimensional maximum intensity projection (MIP) coronal and sagittal reformats were then acquired through the thorax.? For radiation dose reduction, the following was used:? automated exposure contro l, adjustment of mA and/or kV according to patient size.? ? COMPARISON:? [facility], , CT THORAX/ABDOMEN/PELVIS/SOFT TISSUE NECK, 09/20/2021, 12:57. ? FINDINGS:? Image quality:? Excellent.? ? Pulmonary arteries:? Pulmonary arteries demonstrate no intraluminal filling defects to suggest central pulmonary embolism.? There is enlargement of the pulmonary arteries, with the main pulmonary artery measuring up to 3.6 cm suggestive of pulmonary arterial hypertension.? ? Thyroid:? Visualized thyroid demonstrates no discrete nodules. Axillae:? There are mildly enlarged axillary lymph nodes.? A community service representative left axillary node measures up to 1.2 cm in short axis. Chest Wall:? There are mildly enlarged subpectoral and supraclavicular lymph nodes.? A community service representative left supraclavicular node measures up to 1.1 cm in short axis on series 4, image 19. Findings appear slightly increased in size compared to the prior study. Bones: Visualized osseous structures demonstrate no suspicious lesions. ? Lungs and Airways:? Multiple bilateral irregular pulmonary nodules are demo nstrated with the largest measuring up to 2.2 cm in the right lower lobe on series 5, image 118. The findings are new compared to the prior study.? The trachea and central airways are patent. Pleura: No pneumothorax.? There are small bilateral pleural effusions.? ? Heart: Heart size is normal.? No pericardial effusion. Thoracic Vessels: The thoracic aorta is normal in size.? Mediastinum and Melanie: No are enlarged mediastinal and bilateral hilar lymph nodes including confluent subcarinal nodes.? A community service representative right paratracheal node measures up to 1.1 cm in short axis on series 4, image 46. A community service representative right hilar node measures approximately 1.4 cm in short axis on series 4, image 59.? The findings appear slightly increased in size compared to the prior study. Esophagus: No wall thickening. No hiatal hernia. ? Abdomen:? Visualized upper abdomen demonstrates extensive confluent retroperitoneal lymphadenopathy which appears increased compared to the prior study.? There is associated case mint of the aorta and inferior vena cava.? There are enlarged mesenteric lymph nodes also demonstrated. ? IMPRESSION:? ? 1. No evidence of pulmonary embolism.? There is enlargement of the pulmonary arteries suggestive of pulmonary arterial hypertension. ? 2. Increase in size of lymphadenopathy in the chest and visualized abdomen compared to the prior studies suggesting progression of lymphoma. ? 3. Multiple new irregular bilateral pulmonary nodules are nonspecific.? The differential includes pulmonary involvement of lymphoma versus atypical pneumonia.? ? Dictated by: Javan Wallace M.D. on 07/27/2023 at 21:35 ? ? Approved by: Javan Wallace M.D. on 07/27/2023 at 21:45 ? ? ? ADDENDUM: ? COMPARISON: [facility], CT, CT ABDOMEN PELVIS W CON, 07/11/2023, 14:42. ? The pulmonary nodules are new within the visualized lungs from the 07/11/2023 abdominal study.? Findings are consistent with an atypical pneumonia. ? Results discussed with Dr. Junior on 07/27/2023 at 10:05 p.m.. ? Dictated by: Javan Wallace M.D. on 07/27/2023 at 22:05 ? ? Chest x-ray: Radiologist Impression: PROCEDURE:? XR CHEST 1V ? INDICATIONS:? sepsis ? TECHNIQUE:? One view of the chest was acquired.? ? COMPARISON:? [facility], CT, CT ABDOMEN PELVIS W CON, 07/11/2023, 14:42.? [facility], CR, XR CHEST 2V, 09/12/2021, 15:56.? [facility], CR, CHEST 2 VIEW, 02/25/2014, 14:50. ? FINDINGS:? ? Surgical changes and devices:? None.? ? Lungs and pleura:? Hazy right basilar airspace opacity.? Increased pulmonary markings. ? Mediastinum:? Mediastinal contours appear normal.? Heart size is normal.? ? Bones and chest wall:? No suspicious bony lesions.? Overlying soft tissues appear unremarkable.? ? ? IMPRESSION:? Hazy right basilar airspace opacity.? This could represent atelectasis or developing infection. ? ?Increased pulmonary markings, possibly mild pulmonary edema.? ? ? Dictated by: Pankaj Villafuerte M.D. on 07/27/2023 at 19:17 ? ? ECG Data Interpretation: Atrial fibrillation rate [address] changes, previous EKG in 2015 shows a normal sinus rhythm [facility] Narrative Medical decision making narrative: Patient is 77-year-old male history of CLL presenting today with weakness and falls over the last few days. To be mildly hypotensive blood pressure soft 90s to 100s. He is found to have new onset AFib the heart rate is relatively controlled. I suspect the new AFib is secondary to entero/rhinovirus and possible atypical pneumonia. Chest CT was done to rule out pulmonary embolism which did but does show possible atypical pneumonia. He is started on Rocephin azithromycin. He is given sepsis fluids. Seems to be tolerating fluids well without any evidence of hypoxia or congestive heart failure. He is not fluid overloaded exam. Not having any sort of respiratory distress. [facility] CC: Weakness falls Complicating co-morbidities: CLL Corroborating data: Daughter and chart Data collected from: [ ] Medical records reviewed: Chart Differential considered: Illness intracranial hemorrhage septic shock pulmonary embolism ACS Exam documented above, pertinent findings include: Diffuse generalized weakness new onset AFib Lab Test results independently reviewed as above. Pertinent findings: WBC is 3.8, hemoglobin 9.0, hematocrit 28.4(this is stable from 03/23/2023), sodium 128 creatinine 0.65,Negative troponin, BNP is 1910 Independently reviewed EKG as above: Imaging studies independently reviewed: Chest x-ray and CT chest Consultations: Dr. Morris updated on patient's symptoms test results he saw patient in the ED. with soft blood pressures discussed possible need for central line although he is not requiring vasopressors at this time. We agreed no central line or vasopressors at this time. Continue with IV fluids agree with antibiotics and supportive care. Treatments: Sepsis fluids, Rocephin azithromycin Re-evaluations: Blood pressure remained stable mildly improved Discussion: Discussion with patient and daughter about code status at this time he is a full code. Suspect he has atypical pneumonia viral syndrome causing new onset AFib. Diagnosis: Disposition: see below, along with detailed discharge instructions that have been reviewed with patient as well as indications for ED re-evaluation and additional outpatient follow up Discharge Plan Departure Patient Disposition: Admitted As Inpatient Clinical Impression: Pneumonia, Rhinovirus, Atrial fibrillation, new onset Admit Date/Time: 07/27/23 22:14 Admit Provider: [place] Morris
[2023-07-27 19:17] LABS: Add Manual Diff / Slide Review NO; Basophils Absolute Auto 0 /uL (0-100); Eosinophils Absolute Auto 0 /uL (0-450); Eosinophils Percent Auto 0.1 % (2-4); Hematocrit 28.4 % (41-53); Lymphocytes Absolute Auto 300 /uL (1100-4500); Lymphocytes Percent Auto 8.3 % (25-40); Mean Corpuscular HGB Conc 31.6 % (30-36); Mean Corpuscular Hemoglobin 22.6 PG (26-34); Mean Corpuscular Volume 71.7 fL (80-100); Monocytes Absolute Auto 900 /uL (0-900); Monocytes Percent Auto 22.7 % (3-14); Neutrophils Absolute Auto 2600 /uL (1500-7000); Neutrophils Percent Auto 67.9 % (50-75); Platelet Count 260 X10^3/uL (150-400); Red Blood Cell Count 3.96 X10^6/uL (4.5-5.9); Red Cell Distribution Width 21.4 % (11.6-14.8); White Blood Cell Count 3.8 X10^3/uL (4.5-11.0)
[2023-07-27 19:20] LABS: Alanine Aminotransferase 39 IU/L (<50); Albumin 2.5 g/dL (3.5-5.0); Albumin Globulin Ratio 0.8 (1.0-2.8); Alkaline Phosphatase 115 U/L (38-126); Aspartate Aminotransferase 70 IU/L (17-59); BUN Creatinine Ratio 26.2 (6-22); Bilirubin Total 1.1 mg/dL (0.2-1.3); Blood Urea Nitrogen 17 mg/dL (9-20); Calcium 8.8 mg/dL (8.4-10.2); Carbon Dioxide 29 mmol/L (22-32); Chloride 97 mmol/L (98-107); Creatine Kinase < 20 U/L (55-170); Estimated Glomerular Filt Rate > 60 mL/min (>60); Globulin 3.3 g/dL (1.7-4.1); Glucose 89 mg/dL (80-110); HEMOLYSIS 22 (0-50); Potassium 4.1 mmol/L (3.4-5.1); Sodium 128 mmol/L (137-145); Total Protein 5.8 g/dL (6.3-8.2)
[2023-07-27 19:21] LABS: Magnesium 1.7 mg/dL (1.6-2.3)
[2023-07-27 19:32] LABS: Troponin I < 0.012 ng/mL (0.01-0.034)
[2023-07-27 19:37] LABS: Procalcitonin 0.08 ng/mL (<0.5)
[2023-07-27] MEDS: LACTATED RINGERS 870.9 ML IV (19:46)
[2023-07-27 19:52] LABS: Thyroid Stimulating Hormone 0.881 uIU/mL (0.47-4.68)
[2023-07-27 19:56] LABS: Adenovirus Not Detected (Not Detect); B. parapertussis Not Detected (Not Detecte); Bordetella pertussis Not Detected (Not Detecte); Chlamydophila pneumoniae Not Detected (Not Detect); Coronavirus 229E Not Detected (Not Detect); Coronavirus HKU1 Not Detected (Not Detect); Coronavirus NL 63 Not Detected (Not Detect); Coronavirus OC43 Not Detected (Not Detect); Human Metapneumovirus Not Detected (Not Detect); Human Rhinovirus/Enterovirus Detected (Not Detect); Influenza A Not Detected (Not Detect); Influenza B Not Detected (Not Detect); Mycoplasma pneumoniae Not Detected (Not Detect); Parainfluenza Virus 1 Not Detected (Not Detect); Parainfluenza Virus 2 Not Detected (Not Detect); Parainfluenza Virus 3 Not Detected (Not Detect); Parainfluenza Virus 4 Not Detected (Not Detect); Respiratory Syncytial Virus Not Detected (Not Detect); SARS- CoV-2 Not Detected (Not Detecte)
[2023-07-27 20:00] LABS: Lactate (Lactic Acid) 1.2 mmol/L (0.7-2.1)
[2023-07-27 20:20] LABS: NT-proBNP (BNP-Adult 18+) 1910 pg/mL (<450)
[2023-07-27 20:32] LABS: Hypochromasia 1+; Microcytosis 1+
--- NOTE | 2023-07-27 20:38 | DI.CT.S_ITS ---
This report includes an Addendum and supersedes previous reports for this exam. PROCEDURE: CT ANGIO CHEST PE PROTOCOL INDICATIONS: New onset afib; hypotension TECHNIQUE: After the administration of intravenous contrast, 2 mm thick sections acquired from the pulmonary apices to the posterior costophrenic angles. 3-dimensional maximum intensity projection (MIP) coronal and sagittal reformats were then acquired through the thorax. For radiation dose reduction, the following was used: automated exposure control, adjustment of mA and/or kV according to patient size. COMPARISON: [facility], , CT THORAX/ABDOMEN/PELVIS/SOFT TISSUE NECK, 09/20/2021, 12:57. FINDINGS: Image quality: Excellent. Pulmonary arteries: Pulmonary arteries demonstrate no intraluminal filling defects to suggest central pulmonary embolism. There is enlargement of the pulmonary arteries, with the main pulmonary artery measuring up to 3.6 cm suggestive of pulmonary arterial hypertension. Thyroid: Visualized thyroid demonstrates no discrete nodules. Axillae: There are mildly enlarged axillary lymph nodes. A technical sales representatives left axillary node measures up to 1.2 cm in short axis. Chest Wall: There are mildly enlarged subpectoral and supraclavicular lymph nodes. A technical sales representatives left supraclavicular node measures up to 1.1 cm in short axis on series 4, image 19. Findings appear slightly increased in size compared to the prior study. Bones: Visualized osseous structures demonstrate no suspicious lesions. Lungs and Airways: Multiple bilateral irregular pulmonary nodules are demonstrated with the largest measuring up to 2.2 cm in the right lower lobe on series 5, image 118. The findings are new compared to the prior study. The trachea and central airways are patent. Pleura: No pneumothorax. There are small bilateral pleural effusions. Heart: Heart size is normal. No pericardial effusion. Thoracic Vessels: The thoracic aorta is normal in size. Mediastinum and Melanie: No are enlarged mediastinal and bilateral hilar lymph nodes including confluent subcarinal nodes. A technical sales representatives right paratracheal node measures up to 1.1 cm in short axis on series 4, image 46. A technical sales representatives right hilar node measures approximately 1.4 cm in short axis on series 4, image 59. The findings appear slightly increased in size compared to the prior study. Esophagus: No wall thickening. No hiatal hernia. Abdomen: Visualized upper abdomen demonstrates extensive confluent retroperitoneal lymphadenopathy which appears increased compared to the prior study. There is associated case mint of the aorta and inferior vena cava. There are enlarged mesenteric lymph nodes also demonstrated. IMPRESSION: 1. No evidence of pulmonary embolism. There is enlargement of the pulmonary arteries suggestive of pulmonary arterial hypertension. 2. Increase in size of lymphadenopathy in the chest and visualized abdomen compared to the prior studies suggesting progression of lymphoma. 3. Multiple new irregular bilateral pulmonary nodules are nonspecific. The differential includes pulmonary involvement of lymphoma versus atypical pneumonia. Dictated by: Javan Wallace M.D. on 07/27/2023 at 21:35 Approved by: Javan Wallace M.D. on 07/27/2023 at 21:45 ADDENDUM: COMPARISON: [facility], CT, CT ABDOMEN PELVIS W CON, 07/11/2023, 14:42. The pulmonary nodules are new within the visualized lungs from the 07/11/2023 abdominal study. Findings are consistent with an atypical pneumonia. Results discussed with Dr. Junior on 07/27/2023 at 10:05 p.m.. Dictated by: Javan Wallace M.D. on 07/27/2023 at 22:05 Approved by: Javan Wallace M.D. on 07/27/2023 at 22:06
[2023-07-27 22:03] LABS: Appearance Urine UA CLEAR; Bilirubin Urine UA 1+ (NEGATIVE); Color Urine UA YELLOW; Glucose Urine UA NEGATIVE (Negative); Ketones Urine UA TRACE (NEGATIVE); Leukocyte Esterase Urine UA NEGATIVE (NEGATIVE); Nitrite Urine UA NEGATIVE (Negative); Occult Blood Urine UA 1+ (Negative); Protein Urine UA TRACE (Negative); pH Urine UA 5.5 (4.5-8.0)
[2023-07-27 22:13] LABS: Ictotest Urine Negative (Negative)
[2023-07-27 22:19] LABS: Amorphous Sediment Urine 1+; Bacteria Urine None Seen; Culture Indicated Urine Cult Not Indicated; Mucus Urine 2+ (Negative); RBC Urine 1-5/HPF (0-5/HPF); Squamous Epithelial Cell Urine None Seen (0-5/HPF); WBC Urine 0-1/HPF (0-5/HPF)
[2023-07-27] MEDS: cefTRIAXone 2,000 MG in SODIUM CHLORIDE 0.9% 100 ML 200 MG IV (22:27)
[2023-07-27] MEDS: AZITHROMYCIN 500 MG in DEXTROSE 5% IN WATER 250 ML 250 MG IV (23:02)
[2023-07-28] VITALS (7 sets, daily range): BP systolic 91–108; BP diastolic 43–63; PULSE 82–104; RESP 17–24; TEMP 36.6–37.2; O2SAT 95–99; BMI 26.3
[2023-07-28] MEDS: SODIUM CHLORIDE 0.9% 1,000 ML 125 ML IV ×2 (01:40→11:24)
--- NOTE | 2023-07-28 02:31 | PC.NURSE ---
Patient admitted to room 212, diagnosed with Pneumonia. Multiple falls @ home , weakness, denies any pain on admit. Instructed to call for assistance if he needed to get OOB, bed alarm activated.Answered all admit questions & able to verified his home medications. Reported took his chemo medication yesterday, placed on Chemo & droplet precautions. Will monitor & continue plan of care.
--- NOTE | 2023-07-28 02:41 | PC.NURSE ---
Patient tried to get OOB without calling for help. Confused now states I want to check if my jacket is in the closet, I need my jacket if I'll go home. Re-oriented to time & place, he complied to go back to bed. Will monitor.
[2023-07-28 06:34] LABS: Basophils Absolute Auto 0 /uL (0-100); Basophils Percent Auto 0.5 % (0-2); Eosinophils Absolute Auto 0 /uL (0-450); Eosinophils Percent Auto 0.1 % (2-4); Hematocrit 26.6 % (41-53); Hemoglobin 8.6 g/dL (13.5-17.5); Lymphocytes Absolute Auto 300 /uL (1100-4500); Lymphocytes Percent Auto 7.1 % (25-40); Mean Corpuscular HGB Conc 32.3 % (30-36); Mean Corpuscular Hemoglobin 23.2 PG (26-34); Mean Corpuscular Volume 71.9 fL (80-100); Monocytes Absolute Auto 800 /uL (0-900); Monocytes Percent Auto 22.5 % (3-14); Neutrophils Absolute Auto 2500 /uL (1500-7000); Neutrophils Percent Auto 69.8 % (50-75); Platelet Count 248 X10^3/uL (150-400); Red Blood Cell Count 3.69 X10^6/uL (4.5-5.9); Red Cell Distribution Width 20.7 % (11.6-14.8); White Blood Cell Count 3.7 X10^3/uL (4.5-11.0)
[2023-07-28 06:39] LABS: Alanine Aminotransferase 38 IU/L (<50); Albumin 2.3 g/dL (3.5-5.0); Albumin Globulin Ratio 0.8 (1.0-2.8); Alkaline Phosphatase 107 U/L (38-126); Aspartate Aminotransferase 49 IU/L (17-59); BUN Creatinine Ratio 18.7 (6-22); Bilirubin Total 0.9 mg/dL (0.2-1.3); Blood Urea Nitrogen 14 mg/dL (9-20); Calcium 8.1 mg/dL (8.4-10.2); Carbon Dioxide 26 mmol/L (22-32); Chloride 98 mmol/L (98-107); Estimated Glomerular Filt Rate > 60 mL/min (>60); Glucose 84 mg/dL (80-110); HEMOLYSIS < 15 (0-50); Potassium 3.7 mmol/L (3.4-5.1); Sodium 129 mmol/L (137-145); Total Protein 5.3 g/dL (6.3-8.2)
[2023-07-28 06:46] LABS: Add Manual Diff / Slide Review SLIDE REVIEW
[2023-07-28 07:10] LABS: Anisocytosis 1+; Poikilocytosis 1+
--- NOTE | 2023-07-28 09:47 | PM.HP.1 ---
History of Present Illness History of Present Illness Date Patient Seen: 07/28/23 Time Patient Seen: 09:47 Date of Onset of Symptoms: 07/13/23 Chief complaint: fever, multiple falls, weakness Narrative: Patient is a 77-year-old male well known to me with history of CLL and a questionable lymphoma who has had a progressively downward course over the last month with decreased weight fatigue. Patient had been at least functional and had been driving and doing his own care up until the last week where he basically has been bed-bound. He is not had any fevers or chills. No nausea or vomiting. But has not been eating and has not been having as much urine. No bowel changes. No blood in his stool. Fatigued. No short of breath or chest pain. Just weak. His 3 falls in the last 3 or 4 days. And literally has not been getting out of bed. Patient has help at home but has been unable to function and called yesterday to my clinic and we discussed options. We elected to send to the emergency room due the fact that my concern was he was infected with something. Patient's family has otherwise been having no change no previous history of atrial fibrillation. He is had no cardiac history. [facility] Medical History BCC (basal cell carcinoma) Fracture of proximal end of right tibia 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 Hypertension MGUS (monoclonal gammopathy of unknown significance) Obesity Surgical History History of carpal tunnel surgery of left wrist History of carpal tunnel surgery of right wrist History of total left knee replacement History of total right knee replacement History of vasectomy Hx of arthroscopy of knee Hx of bilateral cataract extraction Hx of cholecystectomy Hx of foot surgery Hx of repair of left rotator cuff Hx of tonsillectomy Social History household members: none Smoking Status: Never smoker alcohol intake: current Meds Home Medications and Allergies Home Medications Medication Instructions Recorded Confirmed Type chondroitin sulfate A 250 mg 600 mg PO Q DAY ##0 03/08/17 07/28/23 History capsule (Chondroitin Sulfate) fexofenadine 180 mg tablet 180 mg PO DAILY 02/23/21 07/28/23 History montelukast 10 mg tablet 10 mg PO DAILY PRN asthma. 02/23/21 07/28/23 History pravastatin 20 mg tablet 20 mg PO DAILY 02/23/21 07/28/23 History zolpidem 5 mg tablet 5 mg PO BEDTIME PRN Insomnia 10/11/21 07/28/23 History PreserVision AREDS-2 1 tab BID 01/31/22 07/28/23 History multivitamin 1 tab DAILY 01/31/22 07/28/23 History ascorbic acid (vitamin C) 1,000 mg 1,000 mg PO Q12H 05/02/22 07/28/23 History tablet,extended release (Vitamin C ER) cholecalciferol (vitamin D3) 25 25 mcg PO DAILY 05/02/22 07/28/23 History mcg (1,000 unit) capsule (Vitamin D3) cyanocobalamin (vitamin B-12) 1,000 mcg PO DAILY 05/02/22 07/28/23 History 1,000 mcg tablet (Vitamin B-12) fluoxetine 10 mg capsule 10 mg PO DAILY 05/02/22 07/28/23 History folic acid 800 mcg tablet 0.8 mg PO DAILY 05/02/22 07/28/23 History glucosamine sulf dipot 1 cap PO DAILY 05/02/22 07/28/23 History chlr,msm,chond 550 mg-C 30 mg-paige 1 mg capsule (Glucosamine Chondroitin) loratadine 10 mg capsule 10 mg PO DAILY PRN Allergic 05/02/22 07/28/23 History Symptoms selenium 200 mcg capsule 200 mcg PO DAILY 05/02/22 07/28/23 History testosterone cypionate 50 mg/mL 50 mg IM WEEKLY 05/02/22 07/28/23 History intramuscular oil vitamin B6-vitamin E-magnesium 1 tab PO DAILY 05/02/22 07/28/23 History tablet vitamin E 268 mg (400 unit) capsule 400 unit PO DAILY 05/02/22 07/28/23 History vitamins A,C,W-rybr-qqfovz 2,148 2 tab PO DAILY 05/02/22 07/28/23 History mcg-113 mg-45 mg-17.4 mg tablet (PreserVision AREDS) Prevagen 1 tab DAILY 11/14/22 07/28/23 History ibrutinib 140 mg capsule 420 mg PO DAILY #90 caps 02/27/23 07/28/23 Rx (Imbruvica) vitamin K2 100 mcg capsule 100 mcg PO DAILY 03/27/23 07/28/23 History Allergies Allergy/AdvReac Type Severity Reaction Status Date / Time levofloxacin AdvReac Severe HALLUCINATI Verified 07/27/23 18:26 ONS Review of Systems Review of Systems Narrative: Alert elderly frail-appearing male in bed no acute distress HEENT exam mucous membranes mildly dry. Neck supple without adenopathy JVD or bruits lungs are clear heart is irregular rhythm with mild increase in rate. Abdomen is soft positive bowel sounds nontender is femoral adenopathy is unchanged neurologic exam is nonfocal. Psychologically intermittently tearful when discussion of certain issues Exam Vital Signs (past 8 hours): - 07/28/23 04:14 07/28/23 07:10 Temperature 97.8 F 98.6 F Pulse Rate 92 H 104 H Respiratory Rate 17 24 Blood Pressure 99/48 L 91/45 L Pulse Oximetry 96 95 Oxygen Delivery Method Room Air Objective Labs 07/28/23 06:10 07/28/23 06:10 Labs: Laboratory Results - last 24 hr 07/27/23 07/27/23 07/27/23 18:00 18:00 18:00 WBC 3.8 L RBC 3.96 L Hgb 9.0 L Hct 28.4 L MCV 71.7 L MCH 22.6 L MCHC 31.6 RDW 21.4 H Plt Count 260 Neut % (Auto) 67.9 Lymph % (Auto) 8.[address] [place] % (Auto) 22.7 H Eos % (Auto) 0.1 L Baso % (Auto) 1.0 Neut # (Auto) 2600 Lymph # (Auto) [address] [place] # (Auto) 900 Eos # (Auto) 0 Baso # (Auto) 0 RBC Morphology See below Hypochromasia 1+ H Poikilocytosis Anisocytosis Microcytosis 1+ H Sodium 128 L Potassium 4.1 Chloride 97 L Carbon Dioxide 29 BUN 17 Creatinine 0.65 L Estimated GFR > 60 BUN/Creatinine Ratio 26.2 H Glucose 89 Lactate 1.2 Calcium 8.8 Magnesium Total Bilirubin 1.1 AST 70 H ALT 39 Alkaline Phosphatase 115 Total Creatine Kinase < 20 L Troponin I < 0.012 NT-Pro-B Natriuret Pep Total Protein 5.8 L Albumin 2.5 L Globulin 3.3 Albumin/Globulin Ratio 0.8 L Procalcitonin 0.08 TSH Urine Color Urine Appearance Urine pH Ur Specific [place] Urine Protein Urine Glucose (UA) Urine Ketones Urine Occult Blood Urine Nitrate Urine Bilirubin Ur Bilirubin Confirm Urine Urobilinogen Ur Leukocyte Esterase Urine RBC Urine WBC Ur Squamous Epith Cells Amorphous Sediment Urine Bacteria Urine Mucus Ur Culture Indicated? Chlamy pneumoniae PCR Adenovirus (PCR) B. pertussis DNA (PCR) B.parapertussis DNA PCR Coronavirus OC43 (PCR) Coronavirus HKU1 (PCR) Coronavirus 229E (PCR) SARS-CoV-2 (PCR) Coronavirus NL63 (PCR) Human Metapneumovir PCR Influenza Type A (PCR) Influenza Type B (PCR) M. pneumoniae (PCR) Parainfluenza 1 (PCR) Parainfluenza 2 (PCR) Parainfluenza 3 (PCR) Parainfluenza 4 (PCR) RSV (PCR) Entero/Rhino (PCR) 07/27/23 07/27/23 07/27/23 18:00 18:00 18:00 WBC RBC Hgb Hct MCV MCH MCHC RDW Plt Count Neut % (Auto) Lymph % (Auto) [place] % (Auto) Eos % (Auto) Baso % (Auto) Neut # (Auto) Lymph # (Auto) [place] # (Auto) Eos # (Auto) Baso # (Auto) RBC Morphology Hypochromasia Poikilocytosis Anisocytosis Microcytosis Sodium Potassium Chloride Carbon Dioxide BUN Creatinine Estimated GFR BUN/Creatinine Ratio Glucose Lactate Calcium Magnesium 1.7 Total Bilirubin AST ALT Alkaline Phosphatase Total Creatine Kinase Troponin I NT-Pro-B Natriuret Pep 1910 H Total Protein Albumin Globulin Albumin/Globulin Ratio Procalcitonin TSH 0.881 Urine Color Urine Appearance Urine pH Ur Specific [place] Urine Protein Urine Glucose (UA) Urine Ketones Urine Occult Blood Urine Nitrate Urine Bilirubin Ur Bilirubin Confirm Urine Urobilinogen Ur Leukocyte Esterase Urine RBC Urine WBC Ur Squamous Epith Cells Amorphous Sediment Urine Bacteria Urine Mucus Ur Culture Indicated? Chlamy pneumoniae PCR Adenovirus (PCR) B. pertussis DNA (PCR) B.parapertussis DNA PCR Coronavirus OC43 (PCR) Coronavirus HKU1 (PCR) Coronavirus 229E (PCR) SARS-CoV-2 (PCR) Coronavirus NL63 (PCR) Human Metapneumovir PCR Influenza Type A (PCR) Influenza Type B (PCR) M. pneumoniae (PCR) Parainfluenza 1 (PCR) Parainfluenza 2 (PCR) Parainfluenza 3 (PCR) Parainfluenza 4 (PCR) RSV (PCR) Entero/Rhino (PCR) 07/27/23 07/27/23 07/28/23 18:27 21:56 06:10 WBC 3.7 L RBC 3.69 L Hgb 8.6 L Hct 26.6 L MCV 71.9 L MCH 23.2 L MCHC 32.3 RDW 20.7 H Plt Count 248 Neut % (Auto) 69.8 Lymph % (Auto) 7.[address] % (Auto) 22.5 H Eos % (Auto) 0.1 L Baso % (Auto) 0.5 Neut # (Auto) 2500 Lymph # (Auto) [address] [place] # (Auto) 800 Eos # (Auto) 0 Baso # (Auto) 0 RBC Morphology See below Hypochromasia Poikilocytosis 1+ H Anisocytosis 1+ H Microcytosis Sodium Potassium Chloride Carbon Dioxide BUN Creatinine Estimated GFR BUN/Creatinine Ratio Glucose Lactate Calcium Magnesium Total Bilirubin AST ALT Alkaline Phosphatase Total Creatine Kinase Troponin I NT-Pro-B Natriuret Pep Total Protein Albumin Globulin Albumin/Globulin Ratio Procalcitonin TSH Urine Color Yellow Urine Appearance Clear Urine pH 5.5 Ur Specific [place] 1.020 Urine Protein Trace H Urine Glucose (UA) Negative Urine Ketones Trace H Urine Occult Blood 1+ H Urine Nitrate Negative Urine Bilirubin 1+ H Ur Bilirubin Confirm Negative Urine Urobilinogen 4.0 H Ur Leukocyte Esterase Negative Urine RBC 1-5/hpf Urine WBC 0-1/hpf Ur Squamous Epith Cells None seen Amorphous Sediment 1+ Urine Bacteria None seen Urine Mucus 2+ H Ur Culture Indicated? Cult not indicated Chlamy pneumoniae PCR Not detected Adenovirus (PCR) Not detected B. pertussis DNA (PCR) Not detected B.parapertussis DNA PCR Not detected Coronavirus OC43 (PCR) Not detected Coronavirus HKU1 (PCR) Not detected Coronavirus 229E (PCR) Not detected SARS-CoV-2 (PCR) Not detected Coronavirus NL63 (PCR) Not detected Human Metapneumovir PCR Not detected Influenza Type A (PCR) Not detected Influenza Type B (PCR) Not detected M. pneumoniae (PCR) Not detected Parainfluenza 1 (PCR) Not detected Parainfluenza 2 (PCR) Not detected Parainfluenza 3 (PCR) Not detected Parainfluenza 4 (PCR) Not detected RSV (PCR) Not detected Entero/Rhino (PCR) Detected H 07/28/23 06:10 WBC RBC Hgb Hct MCV MCH MCHC RDW Plt Count Neut % (Auto) Lymph % (Auto) [place] % (Auto) Eos % (Auto) Baso % (Auto) Neut # (Auto) Lymph # (Auto) [place] # (Auto) Eos # (Auto) Baso # (Auto) RBC Morphology Hypochromasia Poikilocytosis Anisocytosis Microcytosis Sodium 129 L Potassium 3.7 Chloride 98 Carbon Dioxide 26 BUN 14 Creatinine 0.75 Estimated GFR > 60 BUN/Creatinine Ratio 18.7 Glucose 84 Lactate Calcium 8.1 L Magnesium Total Bilirubin 0.9 AST 49 ALT 38 Alkaline Phosphatase 107 Total Creatine Kinase Troponin I NT-Pro-B Natriuret Pep Total Protein 5.3 L Albumin 2.3 L Globulin 3.0 Albumin/Globulin Ratio 0.8 L Procalcitonin TSH Urine Color Urine Appearance Urine pH Ur Specific [place] Urine Protein Urine Glucose (UA) Urine Ketones Urine Occult Blood Urine Nitrate Urine Bilirubin Ur Bilirubin Confirm Urine Urobilinogen Ur Leukocyte Esterase Urine RBC Urine WBC Ur Squamous Epith Cells Amorphous Sediment Urine Bacteria Urine Mucus Ur Culture Indicated? Chlamy pneumoniae PCR Adenovirus (PCR) B. pertussis DNA (PCR) B.parapertussis DNA PCR Coronavirus OC43 (PCR) Coronavirus HKU1 (PCR) Coronavirus 229E (PCR) SARS-CoV-2 (PCR) Coronavirus NL63 (PCR) Human Metapneumovir PCR Influenza Type A (PCR) Influenza Type B (PCR) M. pneumoniae (PCR) Parainfluenza 1 (PCR) Parainfluenza 2 (PCR) Parainfluenza 3 (PCR) Parainfluenza 4 (PCR) RSV (PCR) Entero/Rhino (PCR) Assessment & Plan Assessment & Plan narrative: Atrial fibrillation with RVR. New onset. Patient is hypotensive unclear if that is secondary to his infection or dehydration. Or secondary to his atrial fibrillation. Rate has been not horribly elevated but still has RVR. Due to low blood pressure will need to consider alternative medicines and will start with digoxin. We discussed risk of stroke and the question long-term as what his outcomes going to be with his leukemia/lymphoma. Unclear what that represents. He understands. Questions answered. Will start Eliquis at this point. Digoxin today. Will follow. Will obtain echo. Causes probably either his entero rhino virus infection versus possible pneumonia. Will see how he responds. Will see what his echo shows hopefully he will convert in the next 24-48 hours but will have to see how things go. He understands questions answered Entero/rhino virus. Positive tests. Maybe cause of all his current symptoms. Supportive care at this time. Infectious disease. CT shows no evidence of significant issues other than possible developing pneumonia. Seems a little more localized than viral etiology and due to his weak condition will treat with antibiotics. Follow-up cultures follow how he does. And proceed from there. No other source for infection noted will continue Rocephin and Zithromax started in the emergency room. Profound weakness. I believe this is a combination of his cancer his infection which I am hoping it is more leaning toward infection and his weight loss. No evidence of stroke no evidence of focal findings. Has been somewhat progressive. Will have to encourage which we have been doing diet will see how he does. Will add ensure 3 times a day and re-evaluate after that. Hopefully we can maybe have dietitian see on Sunday. Physical therapy occupational therapy evaluation Nutritional deficiency. Ensure and will discuss with dietitian on Sunday. Lymphoma/CLL. Patient has been off his medication and does not have any started he was a PET scan on Sunday and oncology appointment after that. At this time is unclear whether wean are going to have any hope of treatment or not want to see what oncologist as will push for treatment until we know what outcomes are going to be from their perspective. We discussed that with Ike. He understands agrees with with plan. Fluid and electrolytes. Patient was probably mildly dry when he came. Will continue fluids for now will see how he does with intake. Reassess in a.m.. Dehydration. Probably moderate yesterday now probably mild I do not think were euvolemic at this time will continue fluids. Hypotension. Maybe secondary to either his infection was atrial fibrillation. He is receiving fluids. Baseline maybe somewhat low. Will hold all medications that potentially impact this. Code status. DNR. DVT prophylaxis. Started on Eliquis today. Discontinue Lovenox. GI prophylaxis. Do not think it is indicated at this time will follow Disposition I suspect he will be here 48-72 hours depending on how things go. Have to get control of his heart rate and will follow that. Discussed with him. Daughter. 80 minutes spent with the patient social work family orders dictation Quality VTE Deep Vein Thrombosis/Pulmonary Embolism Present on Admission: No
--- NOTE | 2023-07-28 09:54 | DI.ECHO.S_ITS ---
[facility] [place] +---------+ Hospital +---------+ : : [address] : : : : [id number] : : : : Phone: [phone]+ Echocardiogram Report + + :Name: RAFI AVALOS Study Date: 07/30/2023 Height: 68 in : :[facility] ReadingLocation: Weight: 173 lb: : Gender: Male BSA: 1.9 m2 : :: 1945 Age: 77 yrs BP: 98/60 mmHg: :Reason For Study: ATRIAL FIBRILLATION : :Ordering Physician: MARA, : :JOAN Performed By: Ariana Rodrigez : :Referring: JOAN TERRY : + + Interpretation Summary The patient was in atrial fibrillation with heart rates between 75-105 bpm during the exam. The left ventricle is normal in size and wall thickness. The left ventricular ejection fraction is normal. The ejection fraction is estimated to be 55-60%. Severe hypokinesis of distal inferior lateral wall. The right ventricle is normal in size and function. There is mild to moderate mitral regurgitation. There is mild to moderate aortic regurgitation. There is mild to moderate tricuspid regurgitation. Right ventricular systolic pressure is estimated to be 20 mmHg plus the clinically estimated CVP which cannot be estimated on this exam. The ascending aorta is moderately enlarged. 4.3 cm in diameter. There is mild luminal irregularity and echogenicity in the abdominal aorta, suggestive of aortic atherosclerotic disease. There is a 7.3 x 8.4 centimeter echogenic shadow in the liver. Please get dedicated ultrasound liver and gallbladder to make sure there is no obvious pathology. Procedure: A two-dimensional transthoracic echocardiogram with color flow and Doppler was performed. The study quality was technically adequate. There is no prior echocardiogram noted for this patient. The patient was in atrial fibrillation with heart rates between 75-105 bpm during the exam. Left Ventricle: The left ventricle is normal in size and wall thickness. There is no thrombus. The ejection fraction is estimated to be 55-60%. The left ventricular ejection fraction is normal. Severe hypokinesis of distal inferior lateral wall. Diastolic function could not be accurately assessed due to atrial fibrillation. E/E' med: 9.8. Right Ventricle: The right ventricle is normal in size and function. Atria: The left atrium is mildly dilated. Right atrial size is normal. There is no Doppler evidence for an interatrial shunt. Mitral Valve: There is mild mitral annular calcification. The mitral valve leaflets are slightly calcified. There is mild to moderate mitral regurgitation. Aortic Valve: The aortic valve is trileaflet. The aortic valve opens well. There is no aortic valve stenosis. There is mild to moderate aortic regurgitation. Tricuspid Valve: The tricuspid valve is normal. There is mild to moderate tricuspid regurgitation. Right ventricular systolic pressure is estimated to be 20 mmHg plus the clinically estimated CVP which cannot be estimated on this exam. Pulmonic Valve: The pulmonic valve leaflets are thin and pliable; valve motion is normal. There is trace pulmonic regurgitation. Great Vessels: The aortic root is normal size. The ascending aorta is moderately enlarged. There is mild luminal irregularity and echogenicity in the abdominal aorta, suggestive of aortic atherosclerotic disease. The inferior vena cava was not visualized. Pericardium/ Pleura There is no pericardial effusion. There is no pleural effusion. There is a 7.3 x 8.4 echogenic shadow in the liver. Please get dedicated ultrasound liver and gallbladder to make sure there is no obvious pathology. MMode/2D Measurements & Calculations LVIDd: 4.4 cm LVOT diam: 2.4 cm LVIDs: 2.9 cm Ao root diam: 3.9 cm FS: 34.9 % asc Aorta Diam: 4.3 cm EPSS: 0.97 cm IVSd: 0.86 cm LVPWd: 0.94 cm LV mohr. diameter/BSA (cm/m^2): 2.3 LV sys. diameter/BSA (cm/m^2): 1.5 LA A2 area: 25.3 cm2 RA long axis: 5.6 cm LA A4 area: 21.5 cm2 RA area: 17.2 cm2 LA length (vol): 6.2 cm RA vol: 44.8 ml LA vol: 74.8 ml RA : 23.3 ml/m2 LA vol index: 38.9 ml/m2 RVD1 (basal): 3.7 cm RVD2 (mid): 3.5 cm TAPSE: 2.2 cm Doppler Measurements & Calculations Ao V2 max: 125.3 cm/sec LVOT Max Dontrell: 98.0 cm/sec Ao V2 mean: 93.7 cm/sec LV V1 max P.8 mmHg Ao max P.3 mmHg LV V1 VTI: 17.3 cm Ao mean P.8 mmHg BERNA(I,D): 3.4 cm2 Ao V2 VTI: 23.2 cm BERNA(V,D): 3.6 cm2 sev ratio: 0.74 BERNA indexed to BSA (cm^2/m^2): 1.8 AI P1/2t: 906.2 msec AI dec slope: 118.5 cm/sec2 MV E max dontrell: 94.3 cm/sec TR max dontrell: 221.3 cm/sec MV A max dontrell: 2.5 cm/sec TR max P.6 mmHg MV E/A: 37.9 PA V2 max: 115.2 cm/sec Med Peak E' Dontrell: 9.6 cm/sec PA V2 mean: 81.8 cm/sec E/E' med: 9.8 PA mean P.9 mmHg Lat Peak E' Dontrell: 18.1 cm/sec PA pr(Accel): 25.9 mmHg E/E' lat: 5.2 E/e' average: 7.5 MV dec time: 0.22 sec SV(LVOT): 78.6 ml Reading Physician:10:55 AM
--- NOTE | 2023-07-28 10:30 | CM.DANOTE ---
Initial DCP Assessment Note Pt is a 77 yo male, resident of [place], presents with increased weakness, falls w/fever. Patient admitted for management of rhinovirus w/ pneumonia. PMH significant for CLL; Dr Morris explains he was dx many years ago and has been managing well. PCP: Salinas Morris Payer: [facility]/[employer] Reviewed chart, met w/patient and his daughter Maureen at bedside this morning, Dr Morris joined the conversation. Patient has been living alone since his approx 2 years ago, has been managing well, indp w/ADLs with cane or walker. Patient has seen a steep decline over the last two weeks and has not been able to self transfer according to daughter.... Suspicion is that this is related to known infection. [facility] has [facility] for shuttle driver care up until now per daughter. Patient and family are prepared to increase care giving hours in order to keep patient home for as long as possible. Patient w/no hx of HH or SNF, patient is agreeable to HH at discharge and states re SNF at discharge ? I'll have to think about that. Anticipate patient will likely discharge home with family, [facility] care givers and HH when medically stable. CM team will plan to follow closely as medical plan of care unfolds and will remain available to assist with any DC needs, concerns, questions that may arise. KAYLA Donahue Discharge Planning/Care Management CM Discharge Assessment Start: 07/28/23 10:28 Freq: Status: Active Protocol: Document 07/28/23 10:28 DEAN (Rec: 07/28/23 10:30 DEAN [id number]) Discharge Planning Assessment Assigned Farrowing Worker KAYLA Mclean/Assigned Designee Name Maureen Baker, daughter/DPOA Contact Information [phone] Advance Directives? Yes Advance Directives on File No History Provided By Patient,Family Member,Medical Record Prior Living Arrangements House Household Members none Type of transporation used prior to Relies on Others admit Willing to Return to Facility? No Independent with ADL's No Is patient alert and oriented? Yes Needs Assistance With Bathing,Meal Prep,Toileting, Home Chores / Shopping Comment Patient has had a steep decline over the last 2 weeks, typically indp w/ADLs Patient/Family Preference Home with Home Health Barriers to Discharge No Comment Patient and family would like a discharge home, likely w/HH and resumption of in home care through [facility]. Patient is open to an increase in care at home as needed. Discharge Plan Home with Home Health Transportation Arrangement Family Referrals Initiated Home Health Additional Comment Will plan to discuss HH again w/patient and family closer to [place], may not need. Whiteboard Updated in Patient Room with Yes name and ext. # of Farrowing Worker
--- NOTE | 2023-07-28 11:00 | PT.IIE ---
Current Diagnoses Unspecified atrial fibrillation (07/27/23) Surgical History (Last Reviewed 07/28/23 @ 09:50 by Salinas Morris MD) History of carpal tunnel surgery of left wrist History of carpal tunnel surgery of right wrist History of total left knee replacement History of total right knee replacement History of vasectomy Hx of arthroscopy of knee Hx of bilateral cataract extraction Hx of cholecystectomy Hx of foot surgery Hx of repair of left rotator cuff Hx of tonsillectomy Medical History (Last Reviewed 07/28/23 @ 09:50 by Salinas Morris MD) BCC (basal cell carcinoma) Fracture of proximal end of right tibia 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 Hypertension MGUS (monoclonal gammopathy of unknown significance) Obesity Physical Therapy Inpatient Evaluation/Re-Eval M1 PT/OT-IP Prior Functional Status Start: 07/28/23 13:30 Freq: NEEDED Status: Active Protocol: Document 07/28/23 11:00 AB (Rec: 07/28/23 13:43 AB [id number]) Medical Review Prior Functional Status Medical History Reviewed Yes Communication able to make needs known Mobility and Gait pt stated that he is modified independent with all mobilities and ambulation usign a 4WW Social History Household Members none Living Arrangements House Number of Floors (Floors) One Floor Number of Stairs To Enter/Railing? 1 step to enter Home Environment Standard Height Toilet,Walk in Shower,Built-In Shower Seat Home Equipment Four Wheel Walker,Hand Held Shower,Grab Bars Near Toilet, Grab Bars In Shower Additional Social History Comment pt stated that he has a caregiver that comes in daily for 3-4 hours to assist him with meals/house chores M2 PT-IP Current Condition Start: 07/28/23 13:30 Freq: NEEDED Status: Active Protocol: Document 07/28/23 11:00 AB (Rec: 07/28/23 13:43 AB [email or web address]) Physical Therapy Current Condition Current Condition Evaluation Date 07/28/23 Treatment Diagnosis PNA; Rhinovirus; Afib; difficulty in walking Onset Date 07/27/23 M3 PT-IP Subjective Start: 07/28/23 13:30 Freq: NEEDED Status: Active Protocol: Document 07/28/23 11:00 AB (Rec: 07/28/23 13:43 AB [email or web address]) Subjective Physical Therapy Visit Type Type Initial Evaluation Visit Start Time 11:00 Visit Stop Time 11:34 Total Visit Minutes 34 Number of DISASTER RECOVERY CONSULTANT Visits 0 Physical Therapy Visit Comments Patient Comments agreeable to do PT Therapy Pain Assessment Pain Present Pain Present Denied Pain M4 PT-IP Mobility and Gait Start: 07/28/23 13:30 Freq: NEEDED Status: Active Protocol: Document 07/28/23 11:00 AB (Rec: 07/28/23 13:43 [email or web address]) PT-Bed Mobility Assessment Supine to Sit Supine to Sit Maximum Assistance Sit to Supine Sit to Supine Standby Assistance PT-Transfer Assessment Sit to and From Stand Sit to and from Stand Moderate Assistance,Maximum Assistance,1 Person Assistance ,Use of Upper Extremities Equipment Transfer Assistive Device Gait Belt,Front Wheeled Walker Orthotic/Prosthetic Devices or Brace: No Comments Mobility Comments Pt in bed and agreed to do PT. BP in supine: 99/54. completed supine to sit max A and max cues. able to sit on EOB CGA. BP in sittin/ 54. completed sit to stand mod ot max A and max cues and ambulated in room ~ 35 ft using FWW min A. pt then requested to go back to bed and refused to sit up on the chair. stated that he is tired. completed sit to supine SBA. positioned pt in bed. Call light and table placed within reach. BP: 106/ 56. Gait Assessment Gait Gait Assistance Required: Minimum Assistance,1 Person Assist Distance (Feet) 35 Able to Maintain Weight Bearing Status Yes During Gait Assistive Devices Assistive Device Gait Belt,Front Wheeled Walker Orthotic/Prosthetic Devices or Brace: No Gait Deviations General Gait Pattern Decreased Stride Length, Decreased Feet Clearance Factors Limiting Gait Function Factors Limiting Gait Function Decreased Activity Tolerance, Decreased Strength,Pain,Poor Balance,Poor Safety Awareness PT-Balance Assessment Sitting Balance and Reactions Static Sitting Balance Ability Good Dynamic Sitting Balance Ability Good Standing Balance and Reactions Static Standing Balance Ability Fair Dynamic Standing Balance Ability Fair Device Used FWW M5 PT-IP Objective Assessments Start: 07/28/23 13:30 Freq: NEEDED Status: Active Protocol: Document 07/28/23 11:00 AB (Rec: 07/28/23 13:43 [email or web address]) Orientation Orientation/Cognition Level of Alertness Alert Orientation Name,Place,Situation Language Function Ability No Deficits Noted Safety Awareness Decreased Safety Awareness Gross Range of Motion Lower Extremity ROM Assessment Within Functional Limits Strength Lower Extremity Strength Assessment Within Functional Limits Muscle Tone Muscle Tone WNL Yes M6 PT-IP Treatment Start: 07/28/23 13:30 Freq: NEEDED Status: Active Protocol: Document 07/28/23 11:00 AB (Rec: 07/28/23 13:43 AB [id number]) Physical Therapy Treatment Education Education Provided Safety M7 PT-IP Assessment and Plan Start: 07/28/23 13:30 Freq: NEEDED Status: Active Protocol: Document 07/28/23 11:00 AB (Rec: 07/28/23 13:43 AB [id number]) PT Summary Assessment and Plan Potential Rehabilitation Potential Fair Status of Condition at Evaluation Evolving Summary Impairments Pain,ROM,Strength,Balance, Coordination,Sensation,Tone, Cognition,Bed Mobility, Transfers,Gait,Activity Tolerance Assessment Summary pt is a 77 y/o male who has multiple falls at home and admitted in the hospital for new onset A-fib, PNA, rhinovirus. Pt also has chronic lymphocytic leukemia. pt currently requiring max A for bed mobility supine to sit but only SBA for sit to supine, mod to max A for sit to stand and min A for ambulation using FWW ~ 35 ft. pt with decrease activity tolerance affecting mobility. pt will require 24/7 assist at home and may need SNF rehab at this time. will continue to assess progress to determine safe d/c plan. Goals Bed Mobility Goal Independent Transfer Goal Independent,Front Wheeled Walker Gait Goal Independent,Front Wheel Walker Gait Distance 100 Other Goals improve transfers and ambulation using 4WW ~ 250 ft mod I up/down 1 step using 4WW SBA Days to Meet Goals 10 Frequency of Treatment Frequency Of Treatment Once a Day Treatment Plan Physical Therapy Treatment Plan Bed Mobility Training,Transfer Training,Gait Training, Therapeutic Exercise,Balance Retraining,Discharge Planning, Hot or Cold Pack,Neuromuscular Re-ed,Coordination Retraining Precautions Other Precautions Droplet and chemo precautions Recommendations To Nursing Amount of Assist Needed 1 Person Assist Discharge Recommendations PT Discharge Recommendations SNF Rehab Equipment Needed for Home Before FWW if not safe with 4WW and Discharge goes home Transportation Needs at Discharge Private Vehicle
[2023-07-28] MEDS: FLUoxetine 10 MG CAPSULE PO (11:40)
[2023-07-28] MEDS: APIXABAN 5 MG TABLET PO (11:40)
[2023-07-28] MEDS: ASCORBIC ACID 500 MG TABLET 1000 MG PO ×2 (11:40→22:00)
[2023-07-28] MEDS: DIGOXIN 500 MCG/2 ML AMPUL 250 MCG IV ×2 (16:40→23:42)
[2023-07-28] MEDS: ENSURE 1 EACH PO ×2 (17:29→23:55)
--- NOTE | 2023-07-28 17:46 | PC.NURSE ---
Pt resting quietly thru/out the day Denies discomfort. IVF infusing as per orders w/o incidence. Relatively uneventful day Call light w/in reach, bed alarm on for pt safety. Continue w/plan of care.
[2023-07-28] MEDS: SODIUM CHLORIDE 0.9% 1,000 ML 1000 ML IV (23:00)
--- NOTE | 2023-07-28 23:50 | PC.NURSE ---
Addendum entered by Yessica Elias R.N. 07/29/23 05:33: Patient slept intermittently through the night. Denied chest pain,SOB, dizzyness,nausea. BP 106/58 taken manually, HR 105. Original Note: Patient BP 95/50 HR 85 at beginning of shift. Blood pressure rechecked with results of 87/56, HR 102, MAP 61. Patient asymptomatic. Notified Dr. Carrasco and received order to give a 1 L bolus, increase fluids to NS @ 150, and give digoxin.
[2023-07-29] MEDS: SODIUM CHLORIDE 0.9% 1,000 ML 150 ML IV (00:14)
[2023-07-29] MEDS: AZITHROMYCIN 500 MG in DEXTROSE 5% IN WATER 250 ML 250 MG IV ×2 (00:14→22:59)
[2023-07-29] MEDS: cefTRIAXone 2,000 MG in SODIUM CHLORIDE 0.9% 100 ML 200 MG IV (01:18)
[2023-07-29 04:45] VITALS: BP 106/58; PULSE 105
[2023-07-29] MEDS: DIGOXIN 500 MCG/2 ML AMPUL 250 MCG IV (04:45)
[2023-07-29 07:00] VITALS: BP 111/67; PULSE 98; RESP 17; TEMP 36.6; O2SAT 98
[2023-07-29] MEDS: ASCORBIC ACID 500 MG TABLET 1000 MG PO ×2 (09:35→20:14)
[2023-07-29] MEDS: ACETAMINOPHEN 325 MG TABLET 650 MG PO (09:35)
[2023-07-29] MEDS: FLUoxetine 10 MG CAPSULE PO (09:35)
[2023-07-29] MEDS: ENSURE 1 EACH PO ×2 (09:39→20:14)
[2023-07-29 10:29] LABS: Alanine Aminotransferase 49 IU/L (<50); Albumin 2.4 g/dL (3.5-5.0); Albumin Globulin Ratio 0.7 (1.0-2.8); Alkaline Phosphatase 128 U/L (38-126); Aspartate Aminotransferase 71 IU/L (17-59); BUN Creatinine Ratio 21.3 (6-22); Bilirubin Total 0.8 mg/dL (0.2-1.3); Blood Urea Nitrogen 13 mg/dL (9-20); Calcium 8.4 mg/dL (8.4-10.2); Carbon Dioxide 24 mmol/L (22-32); Chloride 100 mmol/L (98-107); Estimated Glomerular Filt Rate > 60 mL/min (>60); Globulin 3.3 g/dL (1.7-4.1); Glucose 97 mg/dL (80-110); HEMOLYSIS < 15 (0-50); Potassium 3.8 mmol/L (3.4-5.1); Sodium 131 mmol/L (137-145); Total Protein 5.7 g/dL (6.3-8.2)
--- NOTE | 2023-07-29 10:31 | PM.PN.1 ---
Subjective Subjective Date Patient Seen: 07/29/23 Time Patient Seen: 10:31 Interval history: Patient seen in follow-up of multiple issues dehydration hypo tension atrial fibrillation with RVR pneumonia profound weakness nutritional deficiency. Otherwise has no significant new changes. Feeling a little bit better. Still has not had an appetite. Blood pressure yesterday was quite low and was given fluids overnight. Maybe slightly improved. Heart rate is much improved on digoxin. No other significant new changes. No fevers no chills. Exam Vital Signs (past 8 hours): - 07/29/23 04:45 07/29/23 07:00 07/29/23 07:00 Temperature 97.8 F Pulse Rate 105 H 98 H Respiratory Rate 17 Blood Pressure 106/58 L 111/67 111/67 Pulse Oximetry 98 Oxygen Flow Rate 0 Oxygen Delivery Method Room Air Oxygen Flow Rate 0 Narrative Exam Narrative: Alert male slightly less fatigued in no acute distress Mucous membranes moist neck supple without adenopathy JVD or bruits lungs are clear heart is regular rate and rhythm extremities are normal neurologic exam is nonfocal Objective Labs 07/28/23 06:10 07/28/23 06:10 [facility] Medical History BCC (basal cell carcinoma) Fracture of proximal end of right tibia 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 Hypertension MGUS (monoclonal gammopathy of unknown significance) Obesity Surgical History History of carpal tunnel surgery of left wrist History of carpal tunnel surgery of right wrist History of total left knee replacement History of total right knee replacement History of vasectomy Hx of arthroscopy of knee Hx of bilateral cataract extraction Hx of cholecystectomy Hx of foot surgery Hx of repair of left rotator cuff Hx of tonsillectomy Social History household members: none Smoking Status: Never smoker alcohol intake: current Assessment & Plan Assessment & Plan narrative: Atrial fibrillation with RVR. Improved. Seem to have good coverage was hoping he would convert but did not do so. Have discussed anticoagulation with Ike. Will begin today. Otherwise no changes. Hopefully he will convert and we will have an issue echo is to be done tomorrow. Will continue to follow other risk factor seem to be stable probably combination of his infection and maybe as low blood pressure. Unclear at this time. Hypotension. Etiology is somewhat unclear. He is not symptomatic did not respond will aggressively to his hydration. We are going to see how things go. Heart rate is better controlled. Will see what happens as we get him up and moving around and whether it is symptomatic may need to discuss with sheet metal welder will see what his echo shows. Infectious disease. Patient definitely has a viral infection and whether or not that is the definitive cause of all his issues as far as fatigue and worsening over the last week or whether he has pneumonia which is questionable on x-ray it is unclear. White count is improved at this point will continue treating for presumed bacterial infection on top of her as enterovirus and will continue to follow. Profound weakness. Whether this is secondary to cancer his infection is hypovolemia is new onset AFib it is unclear. He seems a little bit better today and I am hoping things will improve. Physical therapy is evaluating him and feels like sniff might be the place to go he is reluctant to do so. I am hoping he improves over the next 48 hours enough to get up and mobilize. At least enough to be able to move around in his bedroom and do basic ADLs. We will see how things go clearly not a central issue. Protein deficiency. Nutritional poor intake. He is taking his boost. That is about it. Will have dietitian see tomorrow but I think this is a major issue part of his weakness issue. Lymphoma/CLL. Patient may be all related to this. Need to get an idea from oncologist what his long-term findings will be. He has a PET scan on Sunday am hoping to get him to. And then appointment with them next week. Will have to decide further from there. Dehydration. I think were improved but with blood pressure being low I am going to continue his IV hydration I will just decrease it to 100. Code status DNR. DVT prophylaxis started Eliquis today. GI prophylaxis stable. Disposition. Suspect there will be 48 hours to 72 hours we will continue to be here. I am hoping we can get him home on Sunday daughter is trying to get some things set up so will be easier when he gets home. Will go from there. 1 hours spent with the patient dictating orders social service Quality VTE Deep Vein Thrombosis/Pulmonary Embolism Present on Admission: No
[2023-07-29 10:37] LABS: Eosinophils Percent Auto 0.2 % (2-4); Hematocrit 33.1 % (41-53); Hemoglobin 10.3 g/dL (13.5-17.5); Lymphocytes Percent Auto 4.7 % (25-40); Mean Corpuscular Volume 74.4 fL (80-100); Monocytes Percent Auto 18.8 % (3-14); Platelet Count 275 X10^3/uL (150-400); Red Blood Cell Count 4.46 X10^6/uL (4.5-5.9); Red Cell Distribution Width 21.8 % (11.6-14.8); White Blood Cell Count 4.7 X10^3/uL (4.5-11.0)
[2023-07-29 10:38] LABS: Add Manual Diff / Slide Review NO; Basophils Absolute Auto 0 /uL (0-100); Basophils Percent Auto 0.3 % (0-2); Eosinophils Absolute Auto 0 /uL (0-450); Lymphocytes Absolute Auto 0 /uL (1100-4500); Monocytes Absolute Auto 1 /uL (0-900); Neutrophils Absolute Auto 4 /uL (1500-7000)
--- NOTE | 2023-07-29 11:35 | PT.IPTN ---
Current Diagnoses Unspecified atrial fibrillation (07/27/23) Physical Therapy Treatment Note M2 PT-IP Current Condition Start: 07/28/23 13:30 Freq: NEEDED Status: Active Protocol: Document 07/28/23 11:00 AB (Rec: 07/28/23 13:43 AB [email or web address]) Physical Therapy Current Condition Current Condition Evaluation Date 07/28/23 Treatment Diagnosis PNA; Rhinovirus; Afib; difficulty in walking Onset Date 07/27/23 M3 PT-IP Subjective Start: 07/28/23 13:30 Freq: NEEDED Status: Active Protocol: Document 07/29/23 11:12 KS (Rec: 07/29/23 12:27 KS [id number]) Subjective Physical Therapy Visit Type Type Treatment Note Visit Start Time 11:12 Visit Stop Time 11:35 Total Visit Minutes 23 Number of SAW BOSS Visits 1 Physical Therapy Visit Comments Patient Comments agreeable to do PT M4 PT-IP Mobility and Gait Start: 07/28/23 13:30 Freq: NEEDED Status: Active Protocol: Document 07/29/23 11:12 KS (Rec: 07/29/23 12:27 KS [id number]) PT-Bed Mobility Assessment Supine to Sit Supine to Sit Moderate Assistance,1 Person Assistance,Head of Bed Elevated Sit to Supine Sit to Supine Standby Assistance Scooting Scooting to Edge of Bed Contact Guard Assistance PT-Transfer Assessment Sit to and From Stand Sit to and from Stand Moderate Assistance,1 Person Assistance,Use of Upper Extremities Equipment Transfer Assistive Device Gait Belt,Front Wheeled Walker Orthotic/Prosthetic Devices or Brace: No Transfers Transfer Destination Bed,Bedside Commode Transfer Technique Stand Step Pivot Transfer Ability Level of Assist Moderate Assistance,1 Person Assistance,Use of Upper Extremities Comments Mobility Comments Pt in bed and agreeable to do PT. Mod A for sup<>sit, CGA for scooting EOB. Mod A for sit<>stand w/ FWW. Pt had retrolean upon standing but was able to correct w/ Min A and cues. He performed some marching in place and then beleived he was having a bowel movement and sat back down. STUDENT DEAN arrived to assist, pt performed stand step pivot to BSC w/ FWW and Mod A. After voiding, pt required Min to Mod A for stand step pivot transfer back to bed, SBA for sit<>sup. Pt left in bed w/ all needs in reach and was too fatigued to participate further w/ PT. Gait Assessment Gait Gait Assistance Required: Minimum Assistance,Moderate Assistance,1 Person Assist Distance (Feet) 10 Able to Maintain Weight Bearing Status Yes During Gait Assistive Devices Assistive Device Gait Belt,Front Wheeled Walker Orthotic/Prosthetic Devices or Brace: No Gait Deviations General Gait Pattern Decreased Stride Length, Decreased Feet Clearance Factors Limiting Gait Function Factors Limiting Gait Function Decreased Activity Tolerance, Decreased Strength,Pain,Poor Balance,Poor Safety Awareness Comments Gait Comments Intiail retrolean, improved w/ cues. PT-Balance Assessment Sitting Balance and Reactions Static Sitting Balance Ability Good Dynamic Sitting Balance Ability Good Standing Balance and Reactions Static Standing Balance Ability Fair Dynamic Standing Balance Ability Fair Device Used FWW M5 PT-IP Objective Assessments Start: 07/28/23 13:30 Freq: NEEDED Status: Active Protocol: Document 07/28/23 11:00 AB (Rec: 07/28/23 13:43 AB [id number]) Orientation Orientation/Cognition Level of Alertness Alert Orientation Name,Place,Situation Language Function Ability No Deficits Noted Safety Awareness Decreased Safety Awareness Gross Range of Motion Lower Extremity ROM Assessment Within Functional Limits Strength Lower Extremity Strength Assessment Within Functional Limits Muscle Tone Muscle Tone WNL Yes M6 PT-IP Treatment Start: 07/28/23 13:30 Freq: NEEDED Status: Active Protocol: Document 07/29/23 11:12 KS (Rec: 07/29/23 12:27 KS [id number]) Physical Therapy Treatment Education Education Provided Safety M7 PT-IP Assessment and Plan Start: 07/28/23 13:30 Freq: NEEDED Status: Active Protocol: Document 07/29/23 11:12 KS (Rec: 07/29/23 12:27 KS [id number]) PT Summary Assessment and Plan Potential Rehabilitation Potential Fair Summary Impairments Pain,ROM,Strength,Balance, Coordination,Sensation,Tone, Cognition,Bed Mobility, Transfers,Gait,Activity Tolerance Progress Towards Goals Slow Progress due to Medical Issues,Slow Progress due to Activity Tolerance Assessment Summary Pt requiring less assistance overall this date, however remains limited by weakness, low toelrance for activity, and poor balance. He was able to transfers to [facility] w/ Mod A for sit<>stand, had 1x posterior LOB requiring Min A to recover. Unable to increase ambulation distance or perform LE exercises following 2x STS and transfer from bed to BSC and back. Pt will require 24/7 assist at home and may need SNF rehab at this time. Will continue to assess progress to determine safe d/ c plan. Goals Bed Mobility Goal Independent Transfer Goal Independent,Front Wheeled Walker Gait Goal Independent,Front Wheel Walker Gait Distance 100 Other Goals improve transfers and ambulation using 4WW ~ 250 ft mod I up/down 1 step using 4WW SBA Days to Meet Goals 10 Frequency of Treatment Frequency Of Treatment Once a Day Treatment Plan Physical Therapy Treatment Plan Bed Mobility Training,Transfer Training,Gait Training, Therapeutic Exercise,Balance Retraining,Discharge Planning, Hot or Cold Pack,Neuromuscular Re-ed,Coordination Retraining Precautions Other Precautions Droplet and chemo precautions Recommendations To Nursing Amount of Assist Needed 1 Person Assist Discharge Recommendations PT Discharge Recommendations SNF Rehab Equipment Needed for Home Before FWW if not safe with 4WW and Discharge goes home Transportation Needs at Discharge Private Vehicle
--- NOTE | 2023-07-29 11:47 | PC.NURSE ---
Addendum entered by Rosario Ferrari R.N. 07/29/23 13:58: Patients daughter assisting patient back to bed, his iv became dislodged. Will start a new iv after patient gets situated in bed. He ate a small amount of lunch and is napping now. Original Note: Patient worked with physical therapy and did decent, he does lean back when getting up and ambulating. Patients head up when he was taking medication. He did choke on one of his vitamin C and was able to swallow all of his other medications with water and did not have any difficulty. Will make sure to give patient some yogurt or apple sauce with his larger pills. He is doing well and resting. Lunch is being served.
[2023-07-29 12:17] LABS: Anisocytosis 1+
[2023-07-29 12:19] LABS: Poikilocytosis 2+
[2023-07-29 19:49] VITALS: BP 118/73; PULSE 82; RESP 17; TEMP 36.4; O2SAT 96
[2023-07-29] MEDS: SODIUM CHLORIDE 0.9% 1,000 ML 100 ML IV (19:55)
[2023-07-29] MEDS: APIXABAN 5 MG TABLET PO (20:14)
[2023-07-29 23:23] VITALS: BP 104/60; PULSE 98; RESP 20; TEMP 37.1; O2SAT 96
[2023-07-30] MEDS: cefTRIAXone 2,000 MG in SODIUM CHLORIDE 0.9% 100 ML 200 MG IV ×2 (00:08→23:50)
[2023-07-30 03:57] VITALS: BP 98/60; PULSE 105; RESP 19; TEMP 36.8; O2SAT 95
[2023-07-30 07:13] VITALS: BP 90/52; PULSE 86; RESP 18; TEMP 36.6; O2SAT 95
--- NOTE | 2023-07-30 08:44 | PM.PN.1 ---
Subjective Subjective Date Patient Seen: 07/30/23 Time Patient Seen: 08:45 Interval history: Patient seen in follow-up of weakness, new onset AFib with RVR, pneumonia. Patient overall had a rough night but did better yesterday physical therapy feels like he is getting a little stronger. Still not sure he can go home. Otherwise no changes. Thinking he might want to consider not going to oncologist. Exam Vital Signs (past 8 hours): - 07/30/23 03:57 07/30/23 07:13 Temperature 98.3 F 97.8 F Pulse Rate 105 H 86 Respiratory Rate 19 18 Blood Pressure 98/60 90/52 L Pulse Oximetry 95 95 Oxygen Flow Rate 0 0 Oxygen Delivery Method Room Air Oxygen Flow Rate 0 Narrative Exam Narrative: Alert male in no acute distress lungs are clear heart is irregular rhythm but controlled rate and rhythm extremities normal Objective Labs 07/29/23 09:30 07/29/23 09:30 Labs: Laboratory Results - last 24 hr 07/29/23 07/29/23 09:30 09:30 WBC 4.7 RBC 4.46 L Hgb 10.3 L Hct 33.1 L MCV 74.4 L MCH 23.0 L MCHC 31.0 RDW 21.8 H Plt Count 275 Neut % (Auto) 76.0 H Lymph % (Auto) 4.7 L [place] % (Auto) 18.8 H Eos % (Auto) 0.2 L Baso % (Auto) 0.3 Neut # (Auto) 4 L Lymph # (Auto) 0 L [place] # (Auto) 1 Eos # (Auto) 0 Baso # (Auto) 0 RBC Morphology See below Poikilocytosis 2+ H Anisocytosis 1+ H Sodium 131 L Potassium 3.8 Chloride 100 Carbon Dioxide 24 BUN 13 Creatinine 0.61 L Estimated GFR > 60 BUN/Creatinine Ratio 21.3 Glucose 97 Calcium 8.4 Total Bilirubin 0.8 AST 71 H ALT 49 Alkaline Phosphatase 128 H Total Protein 5.7 L Albumin 2.4 L Globulin 3.3 Albumin/Globulin Ratio 0.7 L PFSH Medical History BCC (basal cell carcinoma) Fracture of proximal end of right tibia 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 Hypertension MGUS (monoclonal gammopathy of unknown significance) Obesity Surgical History History of carpal tunnel surgery of left wrist History of carpal tunnel surgery of right wrist History of total left knee replacement History of total right knee replacement History of vasectomy Hx of arthroscopy of knee Hx of bilateral cataract extraction Hx of cholecystectomy Hx of foot surgery Hx of repair of left rotator cuff Hx of tonsillectomy Social History household members: none Smoking Status: Never smoker alcohol intake: current Assessment & Plan Assessment & Plan narrative: Atrial fibrillation with RVR. Better controlled not perfect seems to be doing well tolerating his digoxin. Will continue at current dose and follow-up echo. Plan will be for probable discharge tomorrow. Hypotension. I do not think this is a significant issue not related to his atrial fibrillation I do not believe. Combination of his illnesses. Do not think it is from infection. At this point we are going to continue to watch fluids hopefully we can get his appetite up and will re-evaluate. Infectious Disease. Etiology is unclear probably pneumonia with viral infection. Will discontinue antibiotics tomorrow. Profound weakness. Combination of multiple issues. Slightly improved. Will continue to follow. Protein deficiency. Will add Marinol and Remeron today. Lymphoma. Will long discussion about this. I do not know whether he is treatable or not if he is not then we should consider hospice. If there is a good option for treatment then we need to make a decision based on that. We need more information he has an appointment next week with oncologist and will see what happens from there. We discussed this he is comfortable with that Dehydration. Doing well. Code status DNR. GI prophylaxis stable. Disposition. Will this point I am hoping discharge tomorrow with home health. Will see how things go. May need chcf but at this point we are trying to go home. 35 minutes spent with the patient dictating Quality VTE Deep Vein Thrombosis/Pulmonary Embolism Present on Admission: No
[2023-07-30] MEDS: APIXABAN 5 MG TABLET PO ×2 (09:23→20:13)
[2023-07-30] MEDS: FLUoxetine 10 MG CAPSULE PO (09:23)
[2023-07-30] MEDS: ACETAMINOPHEN 325 MG TABLET 650 MG PO ×2 (09:23→18:39)
[2023-07-30] MEDS: ENSURE 1 EACH PO ×2 (09:24→20:13)
--- NOTE | 2023-07-30 09:54 | OT.IP.EVAL ---
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 Hypertension MGUS (monoclonal gammopathy of unknown significance) Obesity Surgical History (Last Reviewed 07/28/23 @ 09:50 by Salinas Morris MD) History of carpal tunnel surgery of left wrist History of carpal tunnel surgery of right wrist History of total left knee replacement History of total right knee replacement History of vasectomy Hx of arthroscopy of knee Hx of bilateral cataract extraction Hx of cholecystectomy Hx of foot surgery Hx of repair of left rotator cuff Hx of tonsillectomy Occupational Therapy Inpatient Evaluation/Re-Eval M1 PT/OT-IP Prior Functional Status Start: 07/28/23 13:30 Freq: NEEDED Status: Active Protocol: Document 07/30/23 10:37 CGR (Rec: 07/30/23 10:52 CGR [id number]) Medical Review Prior Functional Status Medical History Reviewed Yes Communication able to make needs known Mobility and Gait Per pt and daughter, 1 month ago, pt was IND in all Functional mobility. Pt has recently started using a walker in the last 2 weeks. Activities of Daily Living and IADL's Per pt and daughter, 1 month ago, pt was IND in all ADLs, IADLs, and driving. They have recently had visiting angels come for 3 days a week, 5 hours a day to assist with daily chores. Social History Household Members none Living Arrangements House Number of Floors (Floors) One Floor Number of Stairs To Enter/Railing? 1 step to enter Home Environment Standard Height Toilet,Walk in Shower,Built-In Shower Seat Home Equipment Four Wheel Walker,Hand Held Shower,Grab Bars Near Toilet, Grab Bars In Shower Employment Status Retired Additional Social History Comment Pt and daughter state that pt has care givers comeing in 3 times a week for 5 hours a day . Pt has an adjustable bed. M2 OT-IP Current Condition Start: 07/30/23 10:36 Freq: Status: Active Protocol: Document 07/30/23 10:37 CGR (Rec: 07/30/23 10:52 CGR [id number]) Occupational Therapy Current Condition Current Condition Evaluation Date 07/30/23 Treatment Diagnosis Lymphoma, PNA Diagnosis Onset Date 07/28/23 M3 OT- IP Subjective and Pain Start: 07/30/23 10:36 Freq: Status: Active Protocol: Document 07/30/23 10:37 CGR (Rec: 07/30/23 10:52 CGR [id number]) OT- Subjective Occupational Therapy Visit Type Type Initial Evaluation Visit Start Time 09:24 Visit Stop Time 09:54 Total Visit Minutes 30 Notes Pt's daughter present throughout session. OT Pain Assessment Pain When Pain Assessed At Rest Pain Present Pain Present Denied Pain M4 OT- IP ADL's Start: 07/30/23 10:36 Freq: Status: Active Protocol: Document 07/30/23 10:37 CGR (Rec: 07/30/23 10:52 CGR [id number]) OT [id number] Comments OT Self-Feeding Comments not meal time OT ADL-Grooming Comments OT Grooming Comments pt declined OT ADL-Oral Care Comments Oral Care Comments pt declined OT ADL-Dressing General Eval Lower Body Dressing Ability Moderate Assistance Areas Needing Assistance Shoes Comments OT Dressing Comments slip on house shoes OT ADL-Toileting Comments OT Toileting Comments not performed OT ADL-Bathing Comments OT Bathing Comments not performed, pt not yet apropriate given energy level M5 OT- IP IADL's Start: 07/30/23 10:36 Freq: Status: Active Protocol: Document 07/30/23 10:37 CGR (Rec: 07/30/23 10:52 CGR [id number]) OT-Instrumental Activities of Daily Living Deficits IADL Deficits Identified Deficits Home Safety Awareness Awareness of Need for Assistance at Home Good Awareness Ability to Problem Solve Emergency Able to Problem Solve Situations Medication Management Medication Management Comments Concerns regarding pt's abiltiy to perform Money Management Money Management Comments Concerns regarding pt's abiltiy to perform Meal Preparation Meal Preparation Comments Concerns regarding pt's abiltiy to perform Beater Operator Beater Operator Comments Concerns regarding pt's abiltiy to perform Driving Driving Comments Concerns regarding pt's abiltiy to perform M6 OT- IP Functional Cognition Start: 07/30/23 10:36 Freq: Status: Active Protocol: Document 07/30/23 10:37 CGR (Rec: 07/30/23 10:52 CGR [id number]) Cognitive Factors Limiting Selfcare Function Cognitive Ability Level of Alertness Alert Patient Orientation Name,Age,Birthday,Month,Day of Week,Place,Situation Attention Span Ability Capable of Focused Attention, Capable of Sustained Attention Ability to Follow Commands Able to Follow One Step Commands with Increased Time, Able to Follow One Step Commands with Repetition OT- Vision and Hearing OT- Hearing Assessment OT- Hearing Assessment WFL OT- Vision Assessment Visual Attentiveness WFL Occular Pursuits WFL Visual Convergence WFL M7 OT- IP Mobility and Balance Start: 07/30/23 10:36 Freq: Status: Active Protocol: Document 07/30/23 10:37 CGR (Rec: 07/30/23 10:52 CGR [id number]) OT- Bed Mobility Assessment Supine to Sit Supine to Sit Assist Moderate Assistance,Head of Bed Elevated Scooting Scooting to Edge of Bed Moderate Assistance OT-Transfer Assessment Sit to and From Stand Sit to and from Stand Moderate Assistance Transfers Transfer Ability Moderate Assistance Technique Transfer Destination Bed,Chair Transfer Technique Stand Step Pivot Devices Transfer Assistive Devices Gait Belt,Front Wheeled Walker Comments Mobility Comments Pt transfered from supine in bed to chair at bedside. Pt states fatigue after transfer. OT- Balance Assessment Sitting Balance and Reactions Static Sitting Balance Ability Fair Dynamic Sitting Balance Ability Fair M8 OT- IP Objective Assessments Start: 07/30/23 10:36 Freq: Status: Active Protocol: Document 07/30/23 10:37 CGR (Rec: 07/30/23 10:52 CGR [id number]) OT Gross Range of Motion Upper Extremity Range of Motion Assessment Bilaterally Impaired ROM Impairments B shld fx impairments, R more limited than left d/t pain. This is his baseline. OT Strength Upper Extremity Strength Assessment Bilaterally Impaired Shoulder not tested d/t pain but does not achieve full ROM Elbow 4/5 Hand 3+/5 OT- Coordination Assessment Upper Extremity Finger to Nose Test Within Functional Limits Finger Tapping Test Within Functional Limits OT-Muscle Tone Assessment Muscle Tone WNL Yes OT Sensation Assessment Edema Edema Absent M9 OT- IP Assessment and Plan Start: 07/30/23 10:36 Freq: Status: Active Protocol: Document 07/30/23 10:37 CGR (Rec: 07/30/23 10:52 CGR [id number]) OT Summary Assessment and Plan Potential Rehabilitation Potential Good Analytic Complexity at Evaluation Moderate Summary OT Impairments Range of Motion,Strength, Balance,Functional Cognition, Functional Mobility,Grooming, Dressing,Toileting,Bathing, Toilet Transfers,Shower Transfers,Activity Tolerance Progress Towards Goals Slow Progress due to Activity Tolerance Assessment Summary Pt presents as a moderate complexity evaluation s/p admit for PNA and Lymphoma. Pt presents with very low activity tolerance that is the driving force of his limitations. Pt will benefit from continued therapy services. Recommend d/c to SNF vs home as pt is home alone most of the time. Pt has a supportive daughter but she works. Goals Self-Feeding Goal Independent Grooming Goal Independent Dressing Goal Independent Toileting Goal Independent Bathing Goal Independent Toilet Transfer Goal Independent Shower Transfer Goal Independent Days to Meet Goals 30 Frequency of Treatment Frequency Of Treatment Once a Day Treatment Plan OT Treatment Plan ADL Training,Functional Cognition Training,Functional Mobility,Patient/Family Education,Discharge Planning Other Treatment Recommendations and Next ADLs seated, energy Treatment Focus conservation. Discharge Recommendations OT Discharge Recommendations SNF Rehab Transportation Needs at Discharge Wheelchair/Cabulance
--- NOTE | 2023-07-30 12:15 | PT.IPTN ---
Current Diagnoses Unspecified atrial fibrillation (07/27/23) Physical Therapy Treatment Note M2 PT-IP Current Condition Start: 07/28/23 13:30 Freq: NEEDED Status: Active Protocol: Document 07/28/23 11:00 AB (Rec: 07/28/23 13:43 AB [id number]) Physical Therapy Current Condition Current Condition Evaluation Date 07/28/23 Treatment Diagnosis PNA; Rhinovirus; Afib; difficulty in walking Onset Date 07/27/23 M3 PT-IP Subjective Start: 07/28/23 13:30 Freq: NEEDED Status: Active Protocol: Document 07/30/23 12:15 AW (Rec: 07/30/23 12:27 AW [id number]) Subjective Physical Therapy Visit Type Type Treatment Note Visit Start Time 11:51 Visit Stop Time 12:15 Total Visit Minutes 24 Notes Pt's daughter present throughout. Number of COMMERCIAL LEASING AGENT Visits 0 Physical Therapy Visit Comments Patient Comments agreeable to do PT Patient Goals Get strong enough to go home. Therapy Pain Assessment Pain When Pain Assessed During Mobility Pain Present Pain Present Denied Pain M4 PT-IP Mobility and Gait Start: 07/28/23 13:30 Freq: NEEDED Status: Active Protocol: Document 07/30/23 12:15 AW (Rec: 07/30/23 12:27 AW [id number]) PT-Bed Mobility Assessment Supine to Sit Supine to Sit Standby Assistance,Head of Bed Elevated Scooting Scooting to Edge of Bed Standby Assistance PT-Transfer Assessment Sit to and From Stand Sit to and from Stand Contact Guard Assistance,Use of Upper Extremities Equipment Transfer Assistive Device Gait Belt,Front Wheeled Walker Transfers Transfer Destination Chair Transfer Technique Stand Step Pivot Transfer Ability Level of Assist Contact Guard Assistance,Use of Upper Extremities Comments Mobility Comments Pt was lying in bed as PT arrived. Supine BP 98/55 HR 94 . Pt transitioned to sitting EOB SBA and PT assisted pt to don his slippers. Pt stood to FWW with CGA and proceeded to ambulate 75 feet with mostly SBA, CGA to min A required for one posterior LOB while pt was backing up. On return to the room, pt transferred to the chair with CGA and good safety awareness. He stood from the chair twice more for practice prior to settling in to the chair for lunch. BP after mobility was 105/61 HR 101. Gait Assessment Gait Gait Assistance Required: Standby Assistance,Minimum Assistance Distance (Feet) 75 Assistive Devices Assistive Device Gait Belt,Front Wheeled Walker Gait Deviations General Gait Pattern Decreased Stride Length, Decreased Feet Clearance Factors Limiting Gait Function Factors Limiting Gait Function Decreased Activity Tolerance, Decreased Strength,Poor Balance,Poor Safety Awareness Comments Gait Comments No lean in initial standing. Pt did have one retro LOB while backing up. Educated pt to maintain environmental and postural awareness while backing up which looked much safer during approach to chair later in session. PT-Balance Assessment Sitting Balance and Reactions Static Sitting Balance Ability Good Dynamic Sitting Balance Ability Good Standing Balance and Reactions Static Standing Balance Ability Good Dynamic Standing Balance Ability Fair Device Used FWW M5 PT-IP Objective Assessments Start: 07/28/23 13:30 Freq: NEEDED Status: Active Protocol: Document 07/28/23 11:00 AB (Rec: 07/28/23 13:43 AB [id number]) Orientation Orientation/Cognition Level of Alertness Alert Orientation Name,Place,Situation Language Function Ability No Deficits Noted Safety Awareness Decreased Safety Awareness Gross Range of Motion Lower Extremity ROM Assessment Within Functional Limits Strength Lower Extremity Strength Assessment Within Functional Limits Muscle Tone Muscle Tone WNL Yes M6 PT-IP Treatment Start: 07/28/23 13:30 Freq: NEEDED Status: Active Protocol: Document 07/30/23 12:15 AW (Rec: 07/30/23 12:27 AW [id number]) Physical Therapy Treatment Education Education Provided Safety M7 PT-IP Assessment and Plan Start: 07/28/23 13:30 Freq: NEEDED Status: Active Protocol: Document 07/30/23 12:15 AW (Rec: 07/30/23 12:27 AW [id number]) PT Summary Assessment and Plan Potential Rehabilitation Potential Good Summary Impairments Pain,ROM,Strength,Balance, Coordination,Sensation,Tone, Cognition,Bed Mobility, Transfers,Gait,Activity Tolerance Progress Towards Goals Progressing Toward Goals,Slow Progress due to Activity Tolerance Assessment Summary Pt progressed very well today, needing SBA to CGA primarily with one instance of min assist offered secondary to posterior LOB. Alertness and activity tolerance much improved today. Pt's daughter states she is working on increasing pt's caregiver support at home. While PT continues to recommend SNF rehab at this time, it is possible pt could progress to safe discharge home with increased care home assist and home PT. Will continue to assess. Goals Bed Mobility Goal Independent Transfer Goal Independent,Front Wheeled Walker Gait Goal Independent,Front Wheel Walker Gait Distance 100 Other Goals improve transfers and ambulation using 4WW ~ 250 ft mod I up/down 1 step using 4WW SBA Days to Meet Goals 10 Frequency of Treatment Frequency Of Treatment Once a Day Treatment Plan Physical Therapy Treatment Plan Bed Mobility Training,Transfer Training,Gait Training, Therapeutic Exercise,Balance Retraining,Discharge Planning, Hot or Cold Pack,Neuromuscular Re-ed,Coordination Retraining Other Recommendations and Next Treatment trial 4WW. increase time in Focus standing, possible standing ther ex. Precautions Other Precautions Droplet and chemo precautions Recommendations To Nursing Amount of Assist Needed 1 Person Assist,2 Person Assist Discharge Recommendations PT Discharge Recommendations Home with Assistance,Home Health,SNF Rehab Other Discharge Recommendations depending on progress with therapies Equipment Needed for Home Before FWW if not safe with 4WW and Discharge goes home Transportation Needs at Discharge Private Vehicle
[2023-07-30 13:09] VITALS: BP 91/60; PULSE 89; RESP 18; O2SAT 95
--- NOTE | 2023-07-30 17:19 | PC.NURSE ---
Speech therapist into see patient around lunch time. She recommends taking pills in yogurt with no mixed consistencies and upright with all intake. He also needs oral care before all meds given. He attempted to get up by himself today and urinated on the floor and had an incontinence of stool. Patient has some confusion but is very pleasant. Cleaned up and put back to bed. Daughter has been here several times today to be with patient. He may go home tomorrow.
--- NOTE | 2023-07-30 17:58 | ST.IPCSEOM ---
Visit Care Team Role Provider Type Ranjana Lebron DO Emergency Provider Physician Referring Provider Specialty: Emergency Medicine Address: [address] [place] [address], [id number] Email: [email or web address] Salinas Morris MD Admit Provider Physician Attending Provider Primary Care Provider Specialty: Family Practice Address: [address] [place] [address], [address], [place], [address] Email: [email or web address] Current Diagnoses Unspecified atrial fibrillation (07/27/23) Past Medical History (Last Reviewed 07/28/23 @ 09:50 by Salinas Morris MD) BCC (basal cell carcinoma) (Medical) Removed from various locations Fracture of proximal end of right tibia (Medical) 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 right knee joint (Medical) Hypertension (Medical) MGUS (monoclonal gammopathy of unknown significance) (Medical) Obesity (Medical) Speech-Language Pathology Swallow Evaluation UNIT COORDINATOR Clinical Swallow Evaluation Start: 07/30/23 15:12 Freq: Status: Active Protocol: Document 07/30/23 15:13 (Rec: 07/30/23 15:34 [id number]) Clinical Swallow Evaluation Session Time Visit Start Time 12:30 Visit Stop Time 13:40 Total Visit Minutes 70 Visit Information Visit Number 1 Referral Reason for Referral dysphagia Setting Assessment Location Acute Care Visit Type Note Type Initial evaluation Patient Information History 77 y/o male with reported coughing with intake, concerns for dysphagia. MHx of AFIB, RVR, PNA, upcoming appt w oncologist. Reported by Patient/Caregiver Other Symptoms Coughing,Difficulty swallowing pills,Food gets stuck,History of aspiration or pneumonia Current Diet Regular (IDDSI 7) Baseline Feeding Method Independent in self-feeding Type of Patient Questionnaire (e.g., EAT PROMIS GDS -10, MDADI, etc.) Results .2, indicative of mild swallow impairment. Pt reports long standing globus sensation, with increased recently resulting in coughing w intake. Difficulty w solid pills. The IDDSI Framework Protocol: IDDSI.1 Objective Assessment Mental Status Alert,Cooperative Oral Integrity WFL Dentition Missing teeth Lip Function Mild impairment Observation of Lips at Rest Symmetrical Pucker Reduced strength Lip Retraction Within normal limits Alternating Pucker/Lip Retraction Incoordination Tongue Function Mild impairment Observations of Tongue at Rest Within normal limits Tongue Protrusion Within normal limits Tongue Retraction Reduced strength Tongue Lateralization Within normal limits Jaw Function Within normal limits Observation of Jaw at Rest Within normal limits Jaw Opening Within normal limits Jaw Closing Within normal limits Hard/Soft Palate Function Within normal limits Observations of Hard/Soft Palate Within normal limits Nasality Within normal limits Respiratory Sufficiency Mild impairment Comment mild lingual and labial weakness Food and Liquid Trials Position During Assessment Upright (90 degrees) Liquids Trialed Thin (IDDSI 0) Solid Trials Purred (IDDSI 4),Soft & Bite- sized (IDDSI 6),Regular (IDDSI 7) Administration Type Cup single sip,Cup consecutive sips,Straw Oral Impairment Mildly impaired Oral Phase Comments cough w thin liquids and puree after the swallow, indicative of possible residue and pooling in the pharynx, responded well to compensatory strategies of small sips with a hard swallow. Cough noted w mixed consistency trials indicative of premature spillage of the liquid. Pharyngeal Impairment Moderately impaired Pharyngeal Phase Comments general weakness of the pharyngeal swallow appears to be resulting in incomplete clearance and residue, resulting in cough after the swallow with solids. Fatigue/Endurance Mild fatigue Strategies Attempted Chin tuck,Effortful swallow Response/Comments Pt responded well to use of small bites/sips with a second hard swallow. [place] Swallow Protocol Yes Results attempted, unable to complete, reduced breath support d/t PNA The IDDSI Framework Protocol: IDDSI.1 Findings Swallowing Function Oropharyngeal phase dysphagia Severity of Swallow Impairment Mildly-moderately impaired Contributing Factors to Swallow Reduced oral strength/ Impairment coordination/sensation, Impaired oral-pharyngeal transport,Reduced laryngeal excursion,Excessive pharyngeal residue Prognosis Fair Based on Cognitive status,Family support Comment Clinical swallow evaluation today revealed oropharyngeal dysphagia characterized by mildly reduced lip / tongue strength and coordination, wet vocal quality and cough observed after the swallow with thin liquids, puree textures and during the swallow with mixed consistency bolus (peaches in juice). Finding are indicative of likely weakness of the base of tongue and pharyngeal squeeze and general weakness of the oropharyngeal function. Pt demonstrated min/no difficulty w regular solids (cookie). Pt responded well to compensatory strategies of small bites and sips, with a hard swallow/second swallow to clear residue. Recommend thins (utilizing strategies) and regular diet with no mixed consistencies. Pt would benefit from pills in puree texture rather than water. ST provided education on swallow physiology and safe swallowing practices, especially being upright for intake, small sips of liquid and hard swallows during intake to clear residue. ST provided education on the importance of good oral care before all intake to reduce the risk of aspiration PNA and recommended safe swallow strategies with good return from pt and daughter. ST education on limitations of bedside eval vs MBS. Pt and daughter verbalized preference to prioritize other health concerns and focus on reduction of risk at this point, with referral to outpatient ST as appropriate in the future. Impact on Safety and Functioning Risk for aspiration Recommendations Instrumental Assessment Yes Swallowing Treatment Yes Recommended Solids Regular (IDDSI 7) Recommended Liquids Thin (IDDSI 0) Other Recommendations no mixed consistencies, pills in puree, follow up with ST in the future for MBS and rehab of the swallow as apporpriate/ desired. Safety Precautions/Swallowing Remain upright (90 degrees) Recommendations during all oral intake,Small bites and sips when eating, Slow rate; swallow between bites,Multiple swallows Medication Recommendations Whole in Carrier Education Patient/Caregiver Education Patient expressed understanding of evaluation, Patient expressed agreement with goals & treatment plans, Family/caregivers expressed understanding of evaluation, Family/caregivers expressed agreement with goals & treatment plans
[2023-07-30 18:00] VITALS: PULSE 64
[2023-07-30] MEDS: SODIUM CHLORIDE 0.9% 1,000 ML 100 ML IV (18:00)
[2023-07-30] MEDS: DIGOXIN 0.125 MG TABLET PO (18:00)
[2023-07-30 19:45] VITALS: BP 106/54; PULSE 113; RESP 19; TEMP 37.5; O2SAT 95
[2023-07-30] MEDS: MIRTAZAPINE 15 MG TABLET 7.5 MG PO (20:12)
[2023-07-30] MEDS: ASCORBIC ACID 500 MG TABLET 1000 MG PO (20:13)
[2023-07-30] MEDS: AZITHROMYCIN 500 MG in DEXTROSE 5% IN WATER 250 ML 250 MG IV (22:30)
[2023-07-30 23:00] VITALS: BP 92/58; PULSE 107; RESP 20; TEMP 36.6; O2SAT 96
[2023-07-31 01:37] VITALS: BP 96/57; PULSE 81
[2023-07-31 04:57] VITALS: BP 101/63; PULSE 100; RESP 19; TEMP 36.4; O2SAT 94
[2023-07-31 04:58] LABS: Add Manual Diff / Slide Review NO; Basophils Absolute Auto 0 /uL (0-100); Basophils Percent Auto 1.1 % (0-2); Eosinophils Absolute Auto 0 /uL (0-450); Eosinophils Percent Auto 0.3 % (2-4); Hematocrit 27.4 % (41-53); Hemoglobin 8.8 g/dL (13.5-17.5); Lymphocytes Absolute Auto 300 /uL (1100-4500); Lymphocytes Percent Auto 6.7 % (25-40); Mean Corpuscular HGB Conc 32.3 % (30-36); Mean Corpuscular Hemoglobin 22.9 PG (26-34); Mean Corpuscular Volume 71.1 fL (80-100); Monocytes Absolute Auto 800 /uL (0-900); Monocytes Percent Auto 19.1 % (3-14); Neutrophils Absolute Auto 3100 /uL (1500-7000); Neutrophils Percent Auto 72.8 % (50-75); Platelet Count 302 X10^3/uL (150-400); Red Blood Cell Count 3.86 X10^6/uL (4.5-5.9); Red Cell Distribution Width 21.3 % (11.6-14.8); White Blood Cell Count 4.3 X10^3/uL (4.5-11.0)
[2023-07-31 05:08] LABS: Alanine Aminotransferase 46 IU/L (<50); Albumin Globulin Ratio 0.7 (1.0-2.8); Alkaline Phosphatase 108 U/L (38-126); Aspartate Aminotransferase 43 IU/L (17-59); BUN Creatinine Ratio 23.2 (6-22); Bilirubin Total 0.4 mg/dL (0.2-1.3); Blood Urea Nitrogen 13 mg/dL (9-20); Calcium 8.2 mg/dL (8.4-10.2); Carbon Dioxide 26 mmol/L (22-32); Chloride 102 mmol/L (98-107); Estimated Glomerular Filt Rate > 60 mL/min (>60); Globulin 2.9 g/dL (1.7-4.1); Glucose 92 mg/dL (80-110); HEMOLYSIS < 15 (0-50); Potassium 3.8 mmol/L (3.4-5.1); Sodium 131 mmol/L (137-145); Total Protein 4.9 g/dL (6.3-8.2)
[2023-07-31] MEDS: SODIUM CHLORIDE 0.9% 1,000 ML 100 ML IV (05:45)
[2023-07-31 06:47] LABS: Anisocytosis 3+; Microcytosis 1+
[2023-07-31 06:48] LABS: Hypochromasia 1+; Ovalocytes 1+; Schistocytes 1+
[2023-07-31 08:00] VITALS: BP 99/53; PULSE 97; RESP 17; TEMP 36.8; O2SAT 95
--- NOTE | 2023-07-31 08:25 | DI.RAD.S_ITS ---
PROCEDURE: XR CHEST 2V INDICATIONS: chills TECHNIQUE: 2 views of the chest were acquired. COMPARISON: [facility], CR, XR CHEST 1V, 07/27/2023, 18:26. FINDINGS: Surgical changes and devices: None. Lungs and pleura: Subtle opacities are seen scattered in right lung field. Trace left pleural effusion is seen. No pneumothorax. Mediastinum: Mediastinal contours are normal. Heart size is normal. Bones and chest wall: No suspicious bony abnormalities. Soft tissues appear unremarkable. IMPRESSION: Suggestion of small patchy infiltrates in right upper and lower lobes. Trace left pleural effusion. No pneumothorax. Dictated by: Stephon Wylie M.D. on 07/31/2023 at 8:53 Approved by: Stephon Wylie M.D. on 07/31/2023 at 8:57
--- NOTE | 2023-07-31 08:39 | P.PN_ITS ---
Subjective Subjective Date Patient Seen: 07/31/23 Time Patient Seen: 08:40 Interval history: Patient with shaking chills last night. Being seen in follow-up of atrial fibrillation hypotension profound weakness protein deficiency lymphoma. No fevers. Other vital signs are stable blood pressure slightly improved. Not on fluids at this time. Otherwise no change. No chest pain. No shortness of breath. No orthopnea. Weakness is still about the same. Exam Vital Signs (past 8 hours): - 07/31/23 01:37 07/31/23 04:57 Temperature 97.5 F L Pulse Rate 81 100 H Respiratory Rate 19 Blood Pressure 96/57 L 101/63 Pulse Oximetry 94 Oxygen Flow Rate 0 Oxygen Delivery Method Room Air Oxygen Flow Rate 0 Narrative Exam Narrative: Alert fatigued male lying in bed no acute distress Lungs are clear heart is regular rate and rhythm Objective Labs 07/31/23 04:48 07/31/23 04:48 Labs: Laboratory Results - last 24 hr 07/31/23 07/31/23 04:48 04:48 WBC 4.3 L RBC 3.86 L Hgb 8.8 L Hct 27.4 L MCV 71.1 L D MCH 22.9 L MCHC 32.3 RDW 21.3 H Plt Count 302 Neut % (Auto) 72.8 Lymph % (Auto) 6.7 L [place] % (Auto) 19.1 H Eos % (Auto) 0.3 L Baso % (Auto) 1.1 Neut # (Auto) 3100 Lymph # (Auto) 300 L [place] # (Auto) 800 Eos # (Auto) 0 Baso # (Auto) 0 RBC Morphology See below Hypochromasia 1+ H Anisocytosis 3+ H D Microcytosis 1+ H Ovalocytes 1+ H Schistocytes 1+ H Sodium 131 L Potassium 3.8 Chloride 102 Carbon Dioxide 26 BUN 13 Creatinine 0.56 L Estimated GFR > 60 BUN/Creatinine Ratio 23.2 H Glucose 92 Calcium 8.2 L Total Bilirubin 0.4 AST 43 ALT 46 Alkaline Phosphatase 108 Total Protein 4.9 L Albumin 2.0 L Globulin 2.9 Albumin/Globulin Ratio 0.7 L PFSH Medical History BCC (basal cell carcinoma) Fracture of proximal end of right tibia 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 Hypertension MGUS (monoclonal gammopathy of unknown significance) Obesity Surgical History History of carpal tunnel surgery of left wrist History of carpal tunnel surgery of right wrist History of total left knee replacement History of total right knee replacement History of vasectomy Hx of arthroscopy of knee Hx of bilateral cataract extraction Hx of cholecystectomy Hx of foot surgery Hx of repair of left rotator cuff Hx of tonsillectomy Social History household members: none Smoking Status: Never smoker alcohol intake: current Assessment & Plan Assessment & Plan narrative: Chills. No fevers. No obvious source of infection other than viral. We discussed this. There has been a question of pneumonia but has been on antibiotics. I am going to re-culture urine rechecked chest x-ray discontinue antibiotics. If all negative and stable over 24 hours will be able to discharge home. Need to make sure he is not infected and some area we are not seeing. Atrial fibrillation. Appears to be stable. Heart rates controlled continue did. Echo is negative probably combination of pulmonary and cancerous issues. Profound weakness. Whether or not that is coming from his infection I am little more worried that this is going to be more longstanding and secondary to his lymphoma. Has a PET scan tomorrow. Will try to discharge at that time. Otherwise no change. We discussed it. He understands. Daughter understands. We will have to see how he improves over time. Certainly maybe slightly improved with physical therapy evaluation since brought here. Hopefully we can go home. Will just have to see how it goes. Hypotension. Patient is still running low normal but improved. I suspect this is where we are going to be. Given his echo is normal his heart rate is controlled I suspect there was no definitive cause and will just continue to push fluids. Protein deficiency. Remeron and Marinol started. Not sure it is really made much difference will see how it goes. Infectious disease. No definitive issue at this time. Chills concerning but no fevers. Will discontinue antibiotics and see what the next 24 hours brings as long as stable discharge. Lymphoma. Probably the biggest issue. Not sure where this is going to be something that is going to be treatable. Question is whether or not hospice is going to be needed. Would like Oncology input before we make that decision. Whether or not he will get enough strength to do further treatment is the question. Patient has PET scan tomorrow and then Oncology next week and we will see how things go. Have discussed with family and him. Dehydration. Resolved. Code status DNR. GI prophylaxis stable. Disposition feel discharge today is probably not in his best interest will plan on tomorrow. Daughter still getting some things ready for bringing him home. And I want to see whether or not he will do well off his antibiotics will re- evaluate after that. Plan on discharge early tomorrow morning so he can get his PET scan at 9:45 a.m.. 50 minutes spent with the patient and family dictation orders Quality VTE Deep Vein Thrombosis/Pulmonary Embolism Present on Admission: No
[2023-07-31] MEDS: FLUoxetine 10 MG CAPSULE PO (09:49)
[2023-07-31] MEDS: ASCORBIC ACID 500 MG TABLET 1000 MG PO ×2 (09:49→21:17)
[2023-07-31] MEDS: APIXABAN 5 MG TABLET PO ×2 (09:49→21:17)
[2023-07-31] MEDS: SODIUM CHLORIDE 0.9% FLUSH 10 ML IV ×2 (09:50→21:17)
[2023-07-31] MEDS: ENSURE 1 EACH PO ×2 (09:50→21:17)
--- NOTE | 2023-07-31 11:06 | PT.IPTN ---
Current Diagnoses Unspecified atrial fibrillation (07/27/23) Physical Therapy Treatment Note M2 PT-IP Current Condition Start: 07/28/23 13:30 Freq: NEEDED Status: Active Protocol: Document 07/28/23 11:00 AB (Rec: 07/28/23 13:43 AB [id number]) Physical Therapy Current Condition Current Condition Evaluation Date 07/28/23 Treatment Diagnosis PNA; Rhinovirus; Afib; difficulty in walking Onset Date 07/27/23 M3 PT-IP Subjective Start: 07/28/23 13:30 Freq: NEEDED Status: Active Protocol: Document 07/31/23 11:53 TS (Rec: 07/31/23 12:12 TS [id number]) Subjective Physical Therapy Visit Type Type Treatment Note Visit Start Time 11:06 Visit Stop Time 11:46 Total Visit Minutes 30 Notes Daughter present Vitals: BP 107/65 Number of SOLID WASTE FACILITY SUPERVISOR Visits 1 Physical Therapy Visit Comments Patient Comments Pt found resting in bed, reports he is feeling good, has a cough and some pain in his neck, agreeable to PT. Patient Goals Get strong enough to go home. Therapy Pain Assessment Pain When Pain Assessed At Rest Pain Present Pain Present Pain Reported M4 PT-IP Mobility and Gait Start: 07/28/23 13:30 Freq: NEEDED Status: Active Protocol: Document 07/31/23 11:53 TS (Rec: 07/31/23 12:12 TS [id number]) PT-Bed Mobility Assessment Supine to Sit Supine to Sit Standby Assistance,Head of Bed Elevated Scooting Scooting to Edge of Bed Standby Assistance PT-Transfer Assessment Sit to and From Stand Sit to and from Stand Standby Assistance,Use of Upper Extremities Equipment Transfer Assistive Device Gait Belt,Front Wheeled Walker Orthotic/Prosthetic Devices or Brace: No Comments Mobility Comments Pt found resting in bed, BP 107/65 in supine, pt agreeable to PT. Supine to sit SBA with HOB elevated 20D, pt uses arm of chair to assist in elevating trunk. Sit to stand with 4WW SBA, pt did not require cueing for locking of brakes prior to standing. He ambulated ~200'SBA w/4WW and step thru gait. Pt is unsteady with WBOS but has no buckling or LOB. Pt ambulated back to room, sat in bedside chair. Daughter reports attaining all DME for at home use and she will be staying with him 28/05 at home. Pt was left in chair with daughter present, all needs met. Gait Assessment Gait Gait Assistance Required: Standby Assistance Distance (Feet) 200 Able to Maintain Weight Bearing Status Yes During Gait Assistive Devices Assistive Device Gait Belt,Front Wheeled Walker Orthotic/Prosthetic Devices or Brace: No Gait Deviations General Gait Pattern Decreased Stride Length, Decreased Feet Clearance Factors Limiting Gait Function Factors Limiting Gait Function Decreased Activity Tolerance, Decreased Strength,Poor Balance,Poor Safety Awareness Comments Gait Comments See mobility comments PT-Balance Assessment Sitting Balance and Reactions Static Sitting Balance Ability Good Dynamic Sitting Balance Ability Good Standing Balance and Reactions Static Standing Balance Ability Good Dynamic Standing Balance Ability Fair Device Used FWW M5 PT-IP Objective Assessments Start: 07/28/23 13:30 Freq: NEEDED Status: Active Protocol: Document 07/28/23 11:00 AB (Rec: 07/28/23 13:43 AB [id number]) Orientation Orientation/Cognition Level of Alertness Alert Orientation Name,Place,Situation Language Function Ability No Deficits Noted Safety Awareness Decreased Safety Awareness Gross Range of Motion Lower Extremity ROM Assessment Within Functional Limits Strength Lower Extremity Strength Assessment Within Functional Limits Muscle Tone Muscle Tone WNL Yes M6 PT-IP Treatment Start: 07/28/23 13:30 Freq: NEEDED Status: Active Protocol: Document 07/31/23 11:53 TS (Rec: 07/31/23 12:12 TS [id number]) Physical Therapy Treatment Education Education Provided Safety M7 PT-IP Assessment and Plan Start: 07/28/23 13:30 Freq: NEEDED Status: Active Protocol: Document 07/31/23 11:53 TS (Rec: 07/31/23 12:12 TS [id number]) PT Summary Assessment and Plan Potential Rehabilitation Potential Good Summary Impairments Pain,ROM,Strength,Balance, Coordination,Sensation,Tone, Cognition,Bed Mobility, Transfers,Gait,Activity Tolerance Progress Towards Goals Progressing Toward Goals Assessment Summary Ike continues to make progress with his mobility. He continues to be SBA for bed mobility and for sit to stands with 4WW. He progressed his ambulation to ~200 SBA w/4WW, pt is unsteady on his feet with a WBOS, he does not have any buckling or LOB. Daughter reports she will be staying with pt 28/05 and has attained all DME for home use. PT is recommending return home with assist. Goals Bed Mobility Goal Independent Transfer Goal Independent,Front Wheeled Walker Gait Goal Independent,Front Wheel Walker Gait Distance 100 Other Goals improve transfers and ambulation using 4WW ~ 250 ft mod I up/down 1 step using 4WW SBA Days to Meet Goals 10 Frequency of Treatment Frequency Of Treatment Once a Day Treatment Plan Physical Therapy Treatment Plan Bed Mobility Training,Transfer Training,Gait Training, Therapeutic Exercise,Balance Retraining,Discharge Planning, Hot or Cold Pack,Neuromuscular Re-ed,Coordination Retraining Other Recommendations and Next Treatment trial 4WW. increase time in Focus standing, possible standing ther ex. Precautions Other Precautions Droplet and chemo precautions Recommendations To Nursing Amount of Assist Needed 1 Person Assist Discharge Recommendations PT Discharge Recommendations Home with Assistance,Home Health Equipment Needed for Home Before FWW if not safe with 4WW and Discharge goes home Transportation Needs at Discharge Private Vehicle
[2023-07-31 12:00] VITALS: BP 100/61; PULSE 100; RESP 17; TEMP 36.6; O2SAT 96
--- NOTE | 2023-07-31 16:38 | CM.DPC ---
DCP Continued: STOPPERER ASSEMBLER reviewed EMR. STOPPERER ASSEMBLER unable to meet with patient today due to triaging needs. Per RN, likely d/c first thing tomorrow with daughter. From PT, HH remains appropriate but safe to d/c home with daughter. Plan: d/c home early in morning. CM team will send d/c information to [facility] when available. KAYLA Abdi
[2023-07-31 17:16] VITALS: BP 123/72; PULSE 87
[2023-07-31] MEDS: DIGOXIN 0.125 MG TABLET PO (17:16)
--- NOTE | 2023-07-31 17:28 | OT.IP.TRT ---
Current Diagnoses Unspecified atrial fibrillation (07/27/23) Occupational Therapy Treatment Note M2 OT-IP Current Condition Start: 07/30/23 10:36 Freq: Status: Active Protocol: Document 07/30/23 10:37 CGR (Rec: 07/30/23 10:52 CGR [id number]) Occupational Therapy Current Condition Current Condition Evaluation Date 07/30/23 Treatment Diagnosis Lymphoma, PNA Diagnosis Onset Date 07/28/23 M3 OT- IP Subjective and Pain Start: 07/30/23 10:36 Freq: Status: Active Protocol: Document 07/31/23 17:28 [facility] (Rec: 07/31/23 17:35 [facility] [id number]) OT- Subjective Occupational Therapy Visit Type Type Treatment Note Visit Start Time 17:09 Visit Stop Time 17:28 Total Visit Minutes 19 Occupational Therapy Visit Comments Patient Comments Pt eating sitting to eat his dinner as his daughter just got hims back for using the bathroom. Patient/Caregiver Goals TO go home. OT Pain Assessment Pain When Pain Assessed At Rest Pain Present Pain Present Denied Pain M4 OT- IP ADL's Start: 07/30/23 10:36 Freq: Status: Active Protocol: Document 07/31/23 17:28 [facility] (Rec: 07/31/23 17:35 [facility] [id number]) OT ATM-Nrtv-Wdlhgvs Comments OT Self-Feeding Comments Pt needing encouragement to eat as not hungry. Pt spitting out his pill in the water and then able to get him to take it with ice cream. OT ADL-Toileting Comments OT Toileting Comments Pt's daughter able to safely assist pt for toileting needs. Pt has a bsc at home to use. Which his daughter is aware to place on the toilet and then next to the bed at night. OT ADL-Bathing Comments OT Bathing Comments Pt to have a shower aid and also spoje of having a fww for shower use. M5 OT- IP IADL's Start: 07/30/23 10:36 Freq: Status: Active Protocol: Document 07/30/23 10:37 CGR (Rec: 07/30/23 10:52 CGR [id number]) OT-Instrumental Activities of Daily Living Deficits IADL Deficits Identified Deficits Home Safety Awareness Awareness of Need for Assistance at Home Good Awareness Ability to Problem Solve Emergency Able to Problem Solve Situations Medication Management Medication Management Comments Concerns regarding pt's abiltiy to perform Money Management Money Management Comments Concerns regarding pt's abiltiy to perform Meal Preparation Meal Preparation Comments Concerns regarding pt's abiltiy to perform Infection Control Coordinator Infection Control Coordinator Comments Concerns regarding pt's abiltiy to perform Driving Driving Comments Concerns regarding pt's abiltiy to perform M6 OT- IP Functional Cognition Start: 07/30/23 10:36 Freq: Status: Active Protocol: Document 07/31/23 17:28 [facility] (Rec: 07/31/23 17:35 [facility] [id number]) Cognitive Factors Limiting Selfcare Function Cognitive Comments Cognitive Assessment Comments Pt needing increased time to follow directions. M9 OT- IP Assessment and Plan Start: 07/30/23 10:36 Freq: Status: Active Protocol: Document 07/31/23 17:28 [facility] (Rec: 07/31/23 17:35 [facility] [id number]) OT Summary Assessment and Plan Potential Rehabilitation Potential Good Analytic Complexity at Evaluation Moderate Summary OT Impairments Range of Motion,Strength, Balance,Functional Cognition, Functional Mobility,Grooming, Dressing,Toileting,Bathing, Toilet Transfers,Shower Transfers,Activity Tolerance Progress Towards Goals Slow Progress due to Medical Issues,Slow Progress due to Activity Tolerance Assessment Summary Pt's daughter in the room and has been safely assisting pt for use of the bathroom. Able to go over OT needs with pt and his daughter. She was able to get a BSC and to get a FWW as well.Pt will benefit form 24/7 assist, home health and a shower aid. Goals Self-Feeding Goal Independent Grooming Goal Independent Dressing Goal Independent Toileting Goal Independent Bathing Goal Independent Toilet Transfer Goal Independent Shower Transfer Goal Independent Days to Meet Goals 15 Frequency of Treatment Frequency Of Treatment Once a Day Treatment Plan OT Treatment Plan ADL Training,Functional Cognition Training,Functional Mobility,Patient/Family Education,Discharge Planning Discharge Recommendations OT Discharge Recommendations Home with 24/7 Assist Available,Home Health Transportation Needs at Discharge Private Vehicle
[2023-07-31] MEDS: MIRTAZAPINE 15 MG TABLET 7.5 MG PO (21:17)
[2023-08-01] VITALS: BP 126/76; PULSE 94; RESP 18; O2SAT 94
[2023-08-01 05:29] LABS: Add Manual Diff / Slide Review NO; Basophils Absolute Auto 100 /uL (0-100); Basophils Percent Auto 1.2 % (0-2); Eosinophils Absolute Auto 0 /uL (0-450); Eosinophils Percent Auto 0.6 % (2-4); Hematocrit 30.1 % (41-53); Hemoglobin 9.6 g/dL (13.5-17.5); Lymphocytes Absolute Auto 300 /uL (1100-4500); Lymphocytes Percent Auto 5.9 % (25-40); Mean Corpuscular HGB Conc 31.8 % (30-36); Mean Corpuscular Hemoglobin 22.8 PG (26-34); Mean Corpuscular Volume 71.7 fL (80-100); Monocytes Absolute Auto 800 /uL (0-900); Neutrophils Absolute Auto 3500 /uL (1500-7000); Neutrophils Percent Auto 74.3 % (50-75); Platelet Count 362 X10^3/uL (150-400); White Blood Cell Count 4.7 X10^3/uL (4.5-11.0)
[2023-08-01 05:36] LABS: Alanine Aminotransferase 45 IU/L (<50); Albumin 2.2 g/dL (3.5-5.0); Albumin Globulin Ratio 0.7 (1.0-2.8); Alkaline Phosphatase 125 U/L (38-126); Aspartate Aminotransferase 44 IU/L (17-59); BUN Creatinine Ratio 19.2 (6-22); Bilirubin Total 0.6 mg/dL (0.2-1.3); Blood Urea Nitrogen 10 mg/dL (9-20); Calcium 8.1 mg/dL (8.4-10.2); Carbon Dioxide 27 mmol/L (22-32); Chloride 102 mmol/L (98-107); Estimated Glomerular Filt Rate > 60 mL/min (>60); Glucose 82 mg/dL (80-110); HEMOLYSIS < 15 (0-50); Potassium 3.9 mmol/L (3.4-5.1); Sodium 132 mmol/L (137-145); Total Protein 5.2 g/dL (6.3-8.2)
[2023-08-01 06:55] LABS: Anisocytosis 2+; Microcytosis 1+; Ovalocytes 1+
[2023-08-01 06:57] LABS: Schistocytes 1+
--- NOTE | 2023-08-01 09:35 | PC.NURSE ---
Pt is dressed and ready for discharge home with Daughter. IV has been removed. Went over d/c instructions with Pt and Daughter-discussed d/c meds, time of last dose, reviewed stroke education, s/s of infection, boosting fluid intake and taking Ensure 3xd. Pt transported downstairs via w/c by BATH ATTENDANT for PET scan with Daughter and all belongings.
--- NOTE | 2023-08-01 12:36 | CM.DPC ---
DCP Continued: ASS[employer]ATE [employer]UR[employer] reviewed EMR. Per chart, patient to d/c today with family. ASSOCIATE [employer] IN NURSING entered room and introduced self and role. ASS[employer]UR[employer] spoke with daughter Maureen ([phone]) re: the d/c plan. Maureen had questions about patient's safety to d/c home with HH. Maureen had questions re: HH and requested they contact her for scheduling, to which patient approved. ASS[employer]UR[employer] spoke with RAFAEL Aviles, who agreed to talk with them again about safety with movement. ASSOCIATE [employer] IN NURSING gave daughter brochure with [facility]'s number on it. CM [employer] Nidhi faxed d/c information to Zahraa at [facility]. ASSOCIATE [employer] IN NURSING updated Zahraa that daughter is preferred contact. Plan: patient to d/c home with daughter and [facility] to follow. Transport with daughter. CM team will continue to follow as needed. KALYA Abdi
--- NOTE | 2023-08-01 18:48 | P.DS_ITS ---
History of Present Illness History of Present Illness Date Patient Seen: 08/01/23 Time Patient Seen: 08:00 Chief complaint: fever, multiple falls, weakness Narrative: Patient is a 77-year-old male well known to me with history of CLL and a questionable lymphoma who has had a progressively downward course over the last month with decreased weight fatigue. Patient had been at least functional and had been driving and doing his own care up until the last week where he basically has been bed-bound. He is not had any fevers or chills. No nausea or vomiting. But has not been eating and has not been having as much urine. No bowel changes. No blood in his stool. Fatigued. No short of breath or chest pain. Just weak. His 3 falls in the last 3 or 4 days. And literally has not been getting out of bed. Patient has help at home but has been unable to fun ction and called yesterday to my clinic and we discussed options. We elected to send to the emergency room due the fact that my concern was he was infected with something. Patient's family has otherwise been having no change no previous history of atrial fibrillation. He is had no cardiac history. Discharge Providers Provider Date of admission: 07/27/23 22:14 Discharge Date: 08/01/23 Primary care physician: Salinas Morris MD Consults: 07/28/23 01:18 Consult to Occupational Therapy Evaluate & Treat Comment: Physician Instructions: Evaluate and treat Consult to Physical Therapy Evaluate & Treat Comment: Physician Instructions: Evaluate and Treat 07/30/23 08:26 Consult to Home Health Routine Comment: Reason For Exam: weakness 07/30/23 08:46 Consult to Speech Therapy Evaluate & Treat Comment: Physician Instructions: Evaluate and treat Discharge provider: Salinas Morris MD Summary Hospital Course Discharge Diagnosis: New onset atrial fibrillation with RVR Profound weakness Lymphoma/leukemia Hypotension Protein deficiency malnutrition Dehydration Hospital Course: New onset atrial fibrillation with RVR. Patient is brought into the hospital and rates were not super high. But his blood pressure was borderline the whole time he was present. Patient has had no previous history no evidence of ischemic disease. Echo was obtained which was normal. Due to his low blood pressure was started on digoxin initially 0.5 b.i.d. IV and then oral 0.125. Rates were controlled although still sometimes over 100 with some activity. But otherwise seemed to be doing well. He was tolerating the medicine and was discharged home on such. We discussed anticoagulation with him and his daughter. There is unclear where his current cancer is in treatment. We will start with Elimelisais and continue that for now. If he were to revert to a hospice type situation he will be discontinued on this. Family is comfortable with this so as he. Pneumonia. Patient had positive entero/rhino virus on presentation. And chest x-ray showed possible infiltrates. White count was normal. Patient had chills intermittently throughout his hospitalization but no fevers. Due to risk and has profound weakness in changes he was started on Rocephin and Zithromax. For presumed community-acquired pneumonia. Patient seemed to improve. Never really developed significant respiratory status. Weakness maybe slightly improved. Whether this all was related to his viral infection or was pneumonia hard to tell. Follow-up chest x-ray on discharge showed some patchy infiltrates in the right side but no other changes. His white count remained stable he had no other fevers. Blood cultures were negative. He will be followed as an outpati ent. Antibiotics were discontinued 24 hours prior to discharge and he did not seem to get worse in his presentation. Hypotension. Patient was hypotensive pretty much throughout the course of his admission although maybe this is where he stays on a regular basis. He was not on any hypertensive medication he was aggressively hydrated early on and did not really respond much to that. Control of his atrial fibrillation did not make a large difference. He was not dizzy or lightheaded other than being somewhat weak. Patient will be followed as an outpatient. No further treatment. Profound weakness. Patient was weak diffusely. There was no symptomatic if or focal defect in his neurologic exam. He had CT scan in the emergency room without any definitive findings. It was felt to be a combination of potentially his cancer, infection, dehydration. Made some mild improvement on discharge. But not a lot. Physical therapy evaluations during his event here at the hospital was showing at least 1 person assist sometimes 2 and not a lot of global director air and climate change the time although maybe had some slight improvement and was able to transfer. Question was whether he needed inpatient rehab therapy or could go home we elected for discharge home and will be followed. Lymphoma/leukemia. Patient with previous diagnosis but has recently taken a turn for the worse over the last 6 weeks. Patient has PET scan today on day of discharge and follow-up with his oncologist. We have to decide where treatment and dizzy treatable cause I do not know the answer to that right now that will dictate how aggressive we are from there. Patient and his daughter understand. And certainly I think a lot of his symptoms during this admission per probably related to that I was hoping he would improve a lot with treatment but we did not see that happen. Alison have I believe that this probably is going to be a negative outcome but we will wait and see what his oncologist se. Protein/nutritional deficiency. Secondary to probably lymphoma. Not much appetite patient has been followed and we have been attempting to increase his nutritional status. He just does not have an appetite he was started on Remeron and Marinol not so much because of depression but because probably this is secondary to his cancer diagnosis. We will see how things go. Follow. Dehydration. He was aggressively hydrated in the 1st 48 hours and then slowly weaned off. He is done well. I think he is euvolemic. Exam Vital Signs (past 8 hours): Oxygen Delivery Method Room Air Oxygen Flow Rate 0 Narrative Exam Narrative: Alert fatigued male lying in bed no acute distress HEENT exam is unremarkable mucous membranes moist neck supple without adenopathy lungs are clear heart is regular rate and rhythm abdomen is benign extremities are normal nonfocal neurologic exam Objective Labs 08/01/23 05:13 08/01/23 05:13 Labs: Laboratory Results - last 24 hr 08/01/23 08/01/23 05:13 05:13 WBC 4.7 RBC 4.20 L Hgb 9.6 L Hct 30.1 L MCV 71.7 L MCH 22.8 L MCHC 31.8 RDW 21.0 H Plt Count 362 Neut % (Auto) 74.3 Lymph % (Auto) 5.9 L Schuyler % (Auto) 18.0 H Eos % (Auto) 0.6 L Baso % (Auto) 1.2 Neut # (Auto) 3500 Lymph # (Auto) 300 L Schuyler # (Auto) 800 Eos # (Auto) 0 Baso # (Auto) 100 RBC Morphology See below Anisocytosis 2+ H Microcytosis 1+ H Ovalocytes 1+ H Schistocytes 1+ H Sodium 132 L Potassium 3.9 Chloride 102 Carbon Dioxide 27 BUN 10 Creatinine 0.52 L Estimated GFR > 60 BUN/Creatinine Ratio 19.2 Glucose 82 Calcium 8.1 L Total Bilirubin 0.6 AST 44 ALT 45 Alkaline Phosphatase 125 Total Protein 5.2 L Albumin 2.2 L Globulin 3.0 Albumin/Globulin Ratio 0.7 L PFSH Medical History BCC (basal cell carcinoma) Fracture of proximal end of right tibia 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 Hypertension MGUS (monoclonal gammopathy of unknown significance) Obesity Surgical History History of carpal tunnel surgery of left wrist History of carpal tunnel surgery of right wrist History of total left knee replacement History of total right knee replacement History of vasectomy Hx of arthroscopy of knee Hx of bilateral cataract extraction Hx of cholecystectomy Hx of foot surgery Hx of repair of left rotator cuff Hx of tonsillectomy Social History household members: none Smoking Status: Never smoker alcohol intake: current Discharge Assessment & Plan Assessment and Plan Assessment: Moderately improved Plan of Treatment: Trialed discharge home with home health Discharge Plan Discharge Plan Patient Disposition: Home Provider Discharge Comment: DISCHARGE AM IN TIME FOR PET SCAN AT 0930 CHECK IN HERE Discharge orders & Medications Prescriptions: New Eliquis 5 mg Tablet 5 mg PO BID Qty: 60 3RF dronabinol 2.5 mg Capsule 2.5 mg PO TID PRN (Reason: Anorexia) Qty: 90 1RF digoxin 125 mcg (0.125 mg) Tablet 0.125 mg PO DAILY@1700 Qty: 30 3RF mirtazapine 15 mg Tablet 7.5 mg PO BEDTIME Qty: 90 0RF Continued Chondroitin Sulfate 250 MG capsule 600 mg PO Q DAY Qty: 0 zolpidem 5 mg tablet 5 mg PO BEDTIME PRN (Reason: Insomnia) fexofenadine 180 mg Tablet 180 mg PO DAILY montelukast 10 mg Tablet 10 mg PO DAILY PRN (Reason: asthma.) pravastatin 20 mg Tablet 20 mg PO DAILY multivitamin Tablet 1 tab DAILY PreserVision AREDS-2 1 tab BID Vitamin C 1,000 mg Tablet Extended Release 1,000 mg PO Q12H cyanocobalamin (vitamin B-12) [Vitamin B-12] 1,000 mcg Tablet 1,000 mcg PO DAILY fluoxetine 10 mg Capsule 10 mg PO DAILY vitamin E 400 unit Capsule 400 unit PO DAILY folic acid 800 mcg Tablet 0.8 mg PO DAILY cholecalciferol (vitamin D3) [Vitamin D3] 25 mcg (1,000 unit) Capsule 25 mcg PO DAILY vitamin B6-vitamin E-magnesium Tablet 1 tab PO DAILY loratadine 10 mg Capsule 10 mg PO DAILY PRN (Reason: Allergic Symptoms) PreserVision AREDS 7,160 unit- 113 mg-100 unit Tablet 2 tab PO DAILY Rx Instructions: administer with AM and PM meals selenium 200 mcg Capsule 200 mcg PO DAILY Glucosamine Chondroitin 550-30-1 mg Capsule 1 cap PO DAILY testosterone cypionate 50 mg/mL Oil 50 mg IM WEEKLY Prevagen 1 tab DAILY Imbruvica 140 mg Capsule 420 mg PO DAILY Qty: 90 3RF Rx Instructions: Take 3 capsules daily vitamin K2 100 mcg Capsule 100 mcg PO DAILY Follow up/Referrals: Salinas Morris MD [Primary Care Provider] - 08/07/23 1:45 pm (Appt:08/07 @ 1:45 with ) Diet/Activity/Treatments Diet: Diet as Tolerated Activity: TOLERATED Skin/Wound/Dressing Care Report to your healthcare provider any signs of infection, such as:: chills, fever, night sweats, increased pain and unusual drainage Visit Report/Discharge Packet Instructions: Pneumonia-Adult, DI for Atrial Fibrillation, Dronabinol, Digoxin, Mirtazapine, Apixaban Stand Alone Forms: Patient Portal/API, Stroke Signs & Symptoms Discharge Data Primary Care Provider: Salinas Morris Discharges patient from system. Discharge Date/Time: 08/01/23 09:38 Quality VTE Deep Vein Thrombosis/Pulmonary Embolism Present on Admission: No
== END 2023-08-01 09:38 | disposition home or self-care (01) | DRG 308 ==
LOC: ED 18:23 → AC 22:14
PROVIDERS: Admitting Provider Family Medicine; Emergency Provider Emergency Medicine; PCP Family Medicine; Referring Provider Emergency Medicine; Visit Provider Family Medicine
DX: I48.91 Unspecified atrial fibrillation (principal); J18.9 Pneumonia, unspecified organism; C85.90 Non-Hodgkin lymphoma, unspecified, unspecified site; E46 Unspecified protein-calorie malnutrition; B97.10 Unspecified enterovirus as the cause of diseases classified elsewhere; E86.0 Dehydration; Z66 Do not resuscitate; I95.9 Hypotension, unspecified; Z68.28 Body mass index [BMI] 28.0-28.9, adult
CPT/HCPCS: 36415; 70450; 71045; 71046; 71275; 80053; 81001; 81003; 82550; 83605; 83735; 83880; 84145; 84443; 84484; 85025; 87040; 87633; 92610; 93005; 93306; 96365; 96367; 97116; 97162; 97166; 97530; 97535; 99284; J0696; J1160; Q9967

== ENCOUNTER 2023-08-12 08:49 | Inpatient (IN) | payer MEDICARE, SELFPAY ==
[2023-07-28 02:39] VITALS: BMI 26.3
[2023-08-12] VITALS (49 sets, daily range): BP systolic 75–158; BP diastolic 44–64; PULSE 70–155; RESP 17–37; TEMP 35.9–39.4; O2SAT 94–99; BMI 23.0
--- NOTE | 2023-08-12 09:07 | DI.RAD.S_ITS ---
PROCEDURE: XR CHEST 1V INDICATIONS: suspected sepsis TECHNIQUE: One view of the chest was acquired. COMPARISON: [facility], [place], [place] PET CT FUSION SKULL 2 THIGH, 08/01/2023, 10:44. [facility], [place], CT ANGIO CHEST PE PROTOCOL, 07/27/2023, 20:40. [facility], [place], XR CHEST 2V, 07/31/2023, 8:43. FINDINGS: Surgical changes and devices: Cholecystectomy clips are seen. Lungs and pleura: Generalized interstitial prominence can be seen. Low lung volumes are noted. This causes a crowded appearance to the lung markings and limits evaluation. No pleural effusions or pneumothorax. Mediastinum: Mediastinal contours appear normal. Heart size is normal. Bones and chest wall: No suspicious bony lesions. Age-appropriate bony degenerative changes are seen. There is levoconvex thoracolumbar scoliotic curvature. Overlying soft tissues appear unremarkable. IMPRESSION: Generalized interstitial prominence can be seen, with low lung volumes. No focal infiltrates are seen. Postoperative and degenerative changes are seen. Dictated by: Chaitanya Gilbert M.D. on 08/12/2023 at 8:46 Approved by: Chaitanya Gilbert M.D. on 08/12/2023 at 8:48
[2023-08-12] MEDS: SODIUM CHLORIDE 0.9% 1,000 ML 1000 ML IV (09:08)
[2023-08-12] MEDS: SODIUM CHLORIDE 0.9% 2,328 ML 776 ML IV (09:11)
[2023-08-12 09:14] LABS: Add Manual Diff / Slide Review NO; Basophils Absolute Auto 0 /uL (0-100); Eosinophils Absolute Auto 0 /uL (0-450); Hematocrit 31.7 % (41-53); Hemoglobin 10.1 g/dL (13.5-17.5); Lymphocytes Absolute Auto 200 /uL (1100-4500); Lymphocytes Percent Auto 4.9 % (25-40); Mean Corpuscular Hemoglobin 23.4 PG (26-34); Mean Corpuscular Volume 73.2 fL (80-100); Monocytes Absolute Auto 600 /uL (0-900); Monocytes Percent Auto 12.4 % (3-14); Neutrophils Absolute Auto 3700 /uL (1500-7000); Neutrophils Percent Auto 81.7 % (50-75); Platelet Count 307 X10^3/uL (150-400); Red Blood Cell Count 4.33 X10^6/uL (4.5-5.9); Red Cell Distribution Width 22.1 % (11.6-14.8); White Blood Cell Count 4.6 X10^3/uL (4.5-11.0)
--- NOTE | 2023-08-12 09:15 | ED_ITS ---
HPI - General Adult General Chief complaint: Fever Stated complaint: Altered LOC/weakness Time Seen by Provider: 08/12/23 09:02 Source: EMS Mode of arrival: EMS History of Present Illness HPI narrative: 77-year-old gentleman with a history of lymphoma/CLL who has been progressively declining. Was admitted 2 weeks ago with new onset atrial fibrillation, global weakness, rhino virus with probable bacterial/aspiration pneumonia superinfection was eventually discharged home. This morning he was found to be febrile to 103? confused and even more weak than he had been previously. He is brought in by ambulance for further evaluation. He is confused, complains of no pain. His daughter is shortly available and notes that he has not been getting out of bed, he has not been attending to dental care or additional hygiene so other sources of infection are certainly available. There have been end of life discussions and he is DNR DNI but would like treatment up to that point. Related Data Home Medications Medication Instructions Recorded Confirmed chondroitin sulfate A 250 mg 600 mg PO Q DAY ##0 03/08/17 08/12/23 capsule (Chondroitin Sulfate) fexofenadine 180 mg tablet 180 mg PO DAILY 02/23/21 08/12/23 montelukast 10 mg tablet 10 mg PO DAILY PRN asthma. 02/23/21 08/12/23 pravastatin 20 mg tablet 20 mg PO DAILY 02/23/21 08/12/23 zolpidem 5 mg tablet 5 mg PO BEDTIME PRN Insomnia 10/11/21 08/12/23 PreserVision AREDS-2 1 tab BID 01/31/22 08/12/23 multivitamin 1 tab DAILY 01/31/22 08/12/23 ascorbic acid (vitamin C) 1,000 mg 1,000 mg PO Q12H 05/02/22 08/12/23 tablet,extended release (Vitamin C ER) cholecalciferol (vitamin D3) 25 25 mcg PO DAILY 05/02/22 08/12/23 mcg (1,000 unit) capsule (Vitamin D3) cyanocobalamin (vitamin B-12) 1,000 mcg PO DAILY 05/02/22 08/12/23 1,000 mcg tablet (Vitamin B-12) fluoxetine 10 mg capsule 10 mg PO DAILY 05/02/22 08/12/23 folic acid 800 mcg tablet 0.8 mg PO DAILY 05/02/22 08/12/23 glucosamine sulf dipot 1 cap PO DAILY 05/02/22 08/12/23 chlr,msm,chond 550 mg-C 30 mg-paige 1 mg capsule (Glucosamine Chondroitin) loratadine 10 mg capsule 10 mg PO DAILY PRN Allergic 05/02/22 08/12/23 Symptoms selenium 200 mcg capsule 200 mcg PO DAILY 05/02/22 08/12/23 vitamin B6-vitamin E-magnesium 1 tab PO DAILY 05/02/22 08/12/23 tablet vitamin E 268 mg (400 unit) capsule 400 unit PO DAILY 05/02/22 08/12/23 vitamins A,C,C-yczx-wfxmkd 2,148 1 tab PO BID 05/02/22 08/12/23 mcg-113 mg-45 mg-17.4 mg tablet (PreserVision AREDS) Prevagen 1 tab DAILY 11/14/22 08/12/23 vitamin K2 100 mcg capsule 100 mcg PO DAILY 03/27/23 08/12/23 Previous Rx's Medication Instructions Recorded ibrutinib 140 mg capsule 420 mg (3 x 140 mg) PO DAILY #90 02/27/23 (Imbruvica) caps apixaban 5 mg tablet (Eliquis) 5 mg PO BID #60 tabs 07/31/23 digoxin 125 mcg (0.125 mg) tablet 0.125 mg PO DAILY@1700 #30 tabs 07/31/23 dronabinol 2.5 mg capsule 2.5 mg PO TID PRN Anorexia #90 caps 07/31/23 mirtazapine 15 mg tablet 7.5 mg (1/2 x 15 mg) PO BEDTIME 07/31/23 #90 tabs Allergies Allergy/AdvReac Type Severity Reaction Status Date / Time levofloxacin AdvReac Severe HALLUCINATI Verified 07/27/23 18:26 ONS Review of Systems Review of Systems Narrative: Pertinent positive and negative findings as per HPI Patient History Medical History History of revision of total replacement of right 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 BCC (basal cell carcinoma) MGUS (monoclonal gammopathy of unknown significance) Obesity Hypertension Fracture of proximal end of right tibia Surgical History Hx of arthroscopy of knee History of total left knee replacement History of total right knee replacement Hx of repair of left rotator cuff Hx of cholecystectomy History of carpal tunnel surgery of left wrist History of carpal tunnel surgery of right wrist Hx of bilateral cataract extraction Hx of foot surgery History of vasectomy Hx of tonsillectomy Social History household members: none Smoking Status: Never smoker alcohol intake: current Smoking Status: Never smoker alcohol intake frequency: 0-2 drinks per day Substance Use Type: does not use Exam Initial Vital Signs Initial Vital Signs: Vital Signs Pulse Rate 132 H 08/12/23 08:55 Pulse Oximetry 97 08/12/23 08:55 General: Chronically ill-appearing, confused but able to respond to questions, HEENT: Very dry mucous membranes, normal sclera with reactive pupils, Neck: No JVD, no cervical adenopathy Respiratory: Lungs are clear to auscultation, no wheezing no rales no rhonchi. Full and symmetrical air movement Cardiac: Rapid and irregular however no murmurs no bruits Abdomen: Soft, scaphoid, nontender, good bowel tones, no flank pain Skin: Thin with multiple bruising sites of various stages of healing with chronic hemosiderin deposits. No obvious areas of cellulitis Neurologic: Globally weak, moving all extremities oriented to name only Extremities: No obvious trauma, mild chronic venous stasis changes and 1+ bilateral lower extremity edema. He does appear to be perfusing adequately Psych: Cooperative, confused Course Orders Ordered: Acetaminophen (Acetaminophen 325 Mg Tablet) 650 mg PO Q6H PRN PRN Reason: Fever/Mild Pain (1-3) Apixaban (Apixaban 5 Mg Tablet) 5 mg PO BID AMADA Digoxin (Digoxin 0.125 Mg Tablet) 0.125 mg PO DAILY@1700 [facility] Last Admin: 08/12/23 18:42 Dose: 0.125 mg Documented By: MAUREEN Vancomycin HCl (Vancomycin) 1,250 mg in 250 mls @ 250 mls/hr IV Q12H AMADA Lactated Ringer's (Lactated Ringers) 1,000 mls @ 150 mls/hr IV CONT [facility] Last Admin: 08/12/23 18:41 Dose: 500 mls/hr Documented By: Infusion: 08/12/23 18:41 Dose: Infused Documented By: Admin: 08/12/23 14:12 Dose: 150 mls/hr Documented By: LATONYA Ceftriaxone Sodium 1,000 mg/ (Sodium Chloride) 100 mls @ 200 mls/hr IV Q24H AMADA Last Infusion: 08/12/23 16:21 Dose: Infused Documented By: Admin: 08/12/23 15:16 Dose: 200 mls/hr Documented By: TLS Morphine Sulfate (Morphine 4 Mg/Ml Inj) 3 mg IV Q4HR PRN PRN Reason: Pain, Severe (7-10) Naloxone HCl (Naloxone 0.4 Mg/Ml Vial) 0.2 mg IV Q2MIN PRN PRN Reason: Opiate Reversal Ibrutinib [Imbruvica (] 140 Mg Capsule) 420 mg PO DAILY [facility] Ondansetron HCl (Ondansetron 4 Mg/2 Ml Inj) 4 mg IV NOW PRN PRN Reason: Nausea And Vomiting Ondansetron HCl (Ondansetron 4 Mg Odt) 4 mg SL NOW PRN PRN Reason: Nausea And Vomiting Ondansetron HCl (Ondansetron 4 Mg/2 Ml Inj) 4 mg IV Q8HR PRN PRN Reason: Nausea And Vomiting Oxycodone HCl (Oxycodone Ir 5 Mg Tablet) 5 mg PO Q3H PRN PRN Reason: Pain, Moderate (4-6) Vancomycin HCl (Vancomycin Trough) 1 request MISC NOW ONE Stop: 08/13/23 23:31 Vancomycin HCl (Vancomycin Peak) 1 request MISC NOW ONE Stop: 08/14/23 02:31 Discontinued Medications Digoxin (Digoxin 500 Mcg/2 Ml Ampul) 250 mcg IV NOW ONE Stop: 08/12/23 10:34 Last Admin: 08/12/23 11:00 Dose: 250 mcg Documented By: ANNE Sodium Chloride (Normal Saline 0.9%) 1,000 mls @ 1,000 mls/hr IV BOLUS ONE Stop: 08/12/23 10:06 Last Infusion: 08/12/23 09:09 Dose: Infused Documented By: Admin: 08/12/23 09:08 Dose: 1,000 mls/hr Documented By: SANDRINE Sodium Chloride (Normal Saline 0.9%) 2,328 mls @ 776 mls/hr 30 ml/kg infuse over 3 hr (2328 ml) IV NOW ONE Stop: 08/12/23 12:10 Last Infusion: 08/12/23 11:36 Dose: Infused Documented By: Admin: 08/12/23 09:11 Dose: 776 mls/hr Documented By: ANNE Acetaminophen (Ofirmev) 1,000 mg in 100 mls @ 400 mls/hr IV NOW ONE Stop: 08/12/23 10:39 Last Infusion: 08/12/23 10:45 Dose: Infused Documented By: Admin: 08/12/23 10:30 Dose: 400 mls/hr Documented By: ANNE Sodium Chloride (Normal Saline 0.45%) 1,000 mls @ 1,000 mls/hr IV BOLUS ONE Stop: 08/12/23 11:24 Last Infusion: 08/12/23 13:15 Dose: Infused Documented By: Admin: 08/12/23 11:50 Dose: 1,000 mls/hr Documented By: ANNE Cefepime HCl 2 gm/ Sodium (Chloride) 100 mls @ 200 mls/hr IV NOW ONE Stop: 08/12/23 10:38 Last Infusion: 08/12/23 11:49 Dose: Infused Documented By: Admin: 08/12/23 11:02 Dose: 200 mls/hr Documented By: ANNE Vancomycin HCl/Dextrose (Vancomycin) 1,500 mg in 300 mls @ 200 mls/hr IV NOW ONE Stop: 08/12/23 12:44 Last Infusion: 08/12/23 13:16 Dose: Infused Documented By: Admin: 08/12/23 11:37 Dose: 200 mls/hr Documented By: ANNE Clindamycin Phosphate (Cleocin) 900 mg in 50 mls @ 50 mls/hr IV NOW ONE Stop: 08/12/23 12:59 Last Infusion: 08/12/23 15:21 Dose: Infused Documented By: Admin: 08/12/23 14:12 Dose: 50 mls/hr Documented By: LATONYA Vancomycin HCl (Vancomycin Per Pharmacy) 1 request MISC NOW ONE Stop: 08/12/23 10:38 Last Admin: 08/12/23 11:27 Dose: Not Given Documented By: ANNE Vital Signs Vital signs: Vital Signs - 8 hr 08/12/23 11:10 08/12/23 11:10 08/12/23 11:15 Temperature 101.5 F H 101.1 F H Pulse Rate 106 H 102 H Respiratory Rate 31 H 31 H Blood Pressure 76/51 L Pulse Oximetry 95 95 08/12/23 11:15 08/12/23 11:20 08/12/23 11:20 Temperature 100.9 F H Pulse Rate 112 H Respiratory Rate 22 Blood Pressure 76/51 L 78/49 L Pulse Oximetry 97 08/12/23 11:25 08/12/23 11:25 08/12/23 11:30 Temperature 100.8 F H Pulse Rate 100 H Respiratory Rate 31 H Blood Pressure 78/51 L 75/50 L Pulse Oximetry 95 08/12/23 11:30 08/12/23 11:35 08/12/23 11:35 Temperature 100.8 F H 100.6 F H Pulse Rate 98 H 99 H Respiratory Rate 28 H 27 H Blood Pressure 77/47 L Pulse Oximetry 94 96 08/12/23 11:40 08/12/23 11:40 08/12/23 11:45 Temperature 100.4 F H 100.2 F H Pulse Rate 99 H 99 H Respiratory Rate 28 H 26 H Blood Pressure 76/51 L Pulse Oximetry 96 95 08/12/23 11:45 08/12/23 11:50 08/12/23 11:50 Temperature 100.0 F H Pulse Rate 98 H Respiratory Rate 24 Blood Pressure 78/47 L 83/48 L Pulse Oximetry 94 08/12/23 11:55 08/12/23 11:55 08/12/23 12:00 Temperature 100.0 F H Pulse Rate 98 H Respiratory Rate 23 Blood Pressure 77/52 L 79/53 L Pulse Oximetry 96 08/12/23 12:00 08/12/23 12:05 08/12/23 12:10 Temperature 99.9 F H 99.7 F H 99.5 F Pulse Rate 94 H 94 H 94 H Respiratory Rate 22 22 25 H Blood Pressure Pulse Oximetry 96 95 97 Medical Decision Making Lab Data 08/12/23 09:00 08/12/23 09:00 Labs: Lab Results 08/12/23 08/12/23 08/12/23 Range/Units 09:00 09:18 09:38 WBC 4.6 (4.5-11.0) X10^3/uL RBC 4.33 L (4.5-5.9) X10^6/uL Hgb 10.1 L (13.5-17.5) g/dL Hct 31.7 L (41-53) % MCV 73.2 L (80-100) fL MCH 23.4 L (26-34) PG MCHC 32.0 (30-36) % RDW 22.1 H (11.6-14.8) % Plt Count 307 (150-400) X10^3/uL Neut % (Auto) 81.7 H (50-75) % Lymph % (Auto) 4.9 L (25-40) % [place] % (Auto) 12.4 (3-14) % Eos % (Auto) 0.0 L (2-4) % Baso % (Auto) 1.0 (0-2) % Neut # (Auto) 3700 (8346-3652) /uL Lymph # (Auto) 200 L (8211-9151) /uL [place] # (Auto) 600 (0-900) /uL Eos # (Auto) 0 (0-450) /uL Baso # (Auto) 0 (0-100) /uL Nucleated RBCs Cancelled Hypersegmented Neuts Cancelled Hypogranular Neuts Cancelled Reactive Lymphocytes Cancelled Smudge Cells Cancelled Other Cell Type Cancelled Toxic Granulation Cancelled Toxic Vacuolation Cancelled Dohle Bodies Cancelled Ruma Rods Cancelled WBC Morphology Comment Cancelled Platelet Estimate Cancelled Clumped Platelets Cancelled Plt Morphology Comment Cancelled RBC Morphology Cancelled Dimorphic RBCs Cancelled Polychromasia Cancelled Hypochromasia Cancelled Poikilocytosis Cancelled Basophilic Stippling Cancelled Anisocytosis Cancelled Microcytosis Cancelled Macrocytosis Cancelled Spherocytes Cancelled Pappenheimer Bodies Cancelled Sickle Cells Cancelled Target Cells Cancelled Tear Drop Cells Cancelled Ovalocytes Cancelled Stomatocytes Cancelled Helmet Cells Cancelled Fisher-Macy Bodies Cancelled [place] Rings Cancelled [place] Cells Cancelled Acanthocytes (Spur) Cancelled Rouleaux Cancelled Schistocytes Cancelled PT 18.1 H (10.1-12.7) SECONDS INR 1.6 H (0.9-1.3) APTT 46 H (26-36) SECONDS Sodium 133 L (137-145) mmol/L Potassium 3.6 (3.4-5.1) mmol/L Chloride 97 L (98-107) mmol/L Carbon Dioxide 26 (22-32) mmol/L BUN 16 (9-20) mg/dL Creatinine 0.63 L (0.66-1.25) mg/dL Estimated GFR > 60 (>60) mL/min BUN/Creatinine Ratio 25.4 H (6-22) Glucose 126 H (80-110) mg/dL Lactate 3.5 H (0.7-2.1) mmol/L Calcium 9.0 (8.4-10.2) mg/dL Total Bilirubin 1.4 H (0.2-1.3) mg/dL AST 50 (17-59) IU/L ALT 29 (<50) IU/L Alkaline Phosphatase 137 H (38-126) U/L Troponin I < 0.012 (0.01-0.034) ng/mL Total Protein 6.1 L (6.3-8.2) g/dL Albumin 2.7 L (3.5-5.0) g/dL Globulin 3.4 (1.7-4.1) g/dL Albumin/Globulin Ratio 0.8 L (1.0-2.8) Lipase 51 (23-300) U/L Procalcitonin 0.11 (<0.5) ng/mL Urine Color Yellow Urine Appearance Clear Urine pH 6.5 (4.5-8.0) Ur Specific [place] <=1.005 (1.000-1.035) Urine Protein Trace H (Negative) Urine Glucose (UA) Negative (Negative) g/dL Urine Ketones Negative (NEGATIVE) Urine Occult Blood 3+ H (Negative) Urine Nitrate Negative (Negative) Urine Bilirubin Negative (NEGATIVE) Urine Urobilinogen >=8.0 (0.2) E.U./dL Ur Leukocyte Esterase Trace H (NEGATIVE) Urine RBC 30-100/hpf H (0-5/HPF) Urine WBC 1-5/hpf (0-5/HPF) Ur Squamous Epith Cells None seen (0-5/HPF) Amorphous Sediment 1+ Urine Bacteria None seen (None) Ur Culture Indicated? Specimen cultured Digoxin < 0.4 L (0.8-2.0) ng/mL Chlamy pneumoniae PCR Not detected (Not Detect) Adenovirus (PCR) Not detected (Not Detect) B.parapertussis DNA PCR Not detected (Not Detecte) Coronavirus OC43 (PCR) Not detected (Not Detect) Coronavirus HKU1 (PCR) Not detected (Not Detect) Coronavirus 229E (PCR) Not detected (Not Detect) SARS-CoV-2 (PCR) Not detected (Not Detecte) Coronavirus NL63 (PCR) Not detected (Not Detect) Human Metapneumovir PCR Not detected (Not Detect) Influenza A (PCR) Not detected (Not Detect) Influenza Type B (PCR) Not detected (Not Detect) M. pneumoniae (PCR) Not detected (Not Detect) Parainfluenza 1 (PCR) Not detected (Not Detect) Parainfluenza 2 (PCR) Not detected (Not Detect) Parainfluenza 3 (PCR) Not detected (Not Detect) Parainfluenza 4 (PCR) Not detected (Not Detect) RSV (PCR) Not detected (Not Detect) Entero/Rhino (PCR) Not detected (Not Detect) 08/12/23 Range/Units 11:15 WBC (4.5-11.0) X10^3/uL RBC (4.5-5.9) X10^6/uL Hgb (13.5-17.5) g/dL Hct (41-53) % MCV (80-100) fL MCH (26-34) PG MCHC (30-36) % RDW (11.6-14.8) % Plt Count (150-400) X10^3/uL Neut % (Auto) (50-75) % Lymph % (Auto) (25-40) % [place] % (Auto) (3-14) % Eos % (Auto) (2-4) % Baso % (Auto) (0-2) % Neut # (Auto) (6944-4828) /uL Lymph # (Auto) (7148-8741) /uL [place] # (Auto) (0-900) /uL Eos # (Auto) (0-450) /uL Baso # (Auto) (0-100) /uL Nucleated RBCs Hypersegmented Neuts Hypogranular Neuts Reactive Lymphocytes Smudge Cells Other Cell Type Toxic Granulation Toxic Vacuolation Dohle Bodies Ruma Rods WBC Morphology Comment Platelet Estimate Clumped Platelets Plt Morphology Comment RBC Morphology Dimorphic RBCs Polychromasia Hypochromasia Poikilocytosis Basophilic Stippling Anisocytosis Microcytosis Macrocytosis Spherocytes Pappenheimer Bodies Sickle Cells Target Cells Tear Drop Cells Ovalocytes Stomatocytes Helmet Cells Fisher-Macy Bodies [place] Rings Kerri Cells Acanthocytes (Spur) Rouleaux Schistocytes PT (10.1-12.7) SECONDS INR (0.9-1.3) APTT (26-36) SECONDS Sodium (137-145) mmol/L Potassium (3.4-5.1) mmol/L Chloride (98-107) mmol/L Carbon Dioxide (22-32) mmol/L BUN (9-20) mg/dL Creatinine (0.66-1.25) mg/dL Estimated GFR (>60) mL/min BUN/Creatinine Ratio (6-22) Glucose (80-110) mg/dL Lactate 1.4 (0.7-2.1) mmol/L Calcium (8.4-10.2) mg/dL Total Bilirubin (0.2-1.3) mg/dL AST (17-59) IU/L ALT (<50) IU/L Alkaline Phosphatase (38-126) U/L Troponin I (0.01-0.034) ng/mL Total Protein (6.3-8.2) g/dL Albumin (3.5-5.0) g/dL Globulin (1.7-4.1) g/dL Albumin/Globulin Ratio (1.0-2.8) Lipase (23-300) U/L Procalcitonin (<0.5) ng/mL Urine Color Urine Appearance Urine pH (4.5-8.0) Ur Specific [place] (1.000-1.035) Urine Protein (Negative) Urine Glucose (UA) (Negative) g/dL Urine Ketones (NEGATIVE) Urine Occult Blood (Negative) Urine Nitrate (Negative) Urine Bilirubin (NEGATIVE) Urine Urobilinogen (0.2) E.U./dL Ur Leukocyte Esterase (NEGATIVE) Urine RBC (0-5/HPF) Urine WBC (0-5/HPF) Ur Squamous Epith Cells (0-5/HPF) Amorphous Sediment Urine Bacteria (None) Ur Culture Indicated? Digoxin (0.8-2.0) ng/mL Chlamy pneumoniae PCR (Not Detect) Adenovirus (PCR) (Not Detect) B.parapertussis DNA PCR (Not Detecte) Coronavirus OC43 (PCR) (Not Detect) Coronavirus HKU1 (PCR) (Not Detect) Coronavirus 229E (PCR) (Not Detect) SARS-CoV-2 (PCR) (Not Detecte) Coronavirus NL63 (PCR) (Not Detect) Human Metapneumovir PCR (Not Detect) Influenza A (PCR) (Not Detect) Influenza Type B (PCR) (Not Detect) M. pneumoniae (PCR) (Not Detect) Parainfluenza 1 (PCR) (Not Detect) Parainfluenza 2 (PCR) (Not Detect) Parainfluenza 3 (PCR) (Not Detect) Parainfluenza 4 (PCR) (Not Detect) RSV (PCR) (Not Detect) Entero/Rhino (PCR) (Not Detect) Point of Care Testing Glucose POC 149 Point of care testing: Point of Care Testing Glucose POC 149 MDM Narrative Medical decision making narrative: CC: Fever confusion Complicating co-morbidities: Lymphoma, declining overall health with weakness and recent hospitalization for new atrial fibrillation. DNR DNI Data collected from: patient, daughter Social determinants of health that may influence the patients condition: Currently living independently with kids coming to stay with him. Progressive weakness unable to get out of bed, clearly failing and likely getting closer to the end of his life Medical records reviewed: Discharge summary from July 31 is reviewed Differential considered: Sepsis, aspiration pneumonia, continued atrial fibrillation with rapid ventricular response, acute coronary syndrome Exam documented above, pertinent findings include: Confused, quite thin almost to the point of cachexia, lungs are actually clear, belly is soft, heart rate is rapid and irregular Lab Test results independently reviewed as above. Pertinent findings: CBC is fairly unremarkable. His white count is 4.6 however he does have a moderate left shift with 81.7 neutrophils. Chemistries are moderately reassuring with bilirubin slightly elevated at 1.4, alk-phos slightly elevated at 137. Renal function remains appropriate with GFR greater than 60 Initial lactic acid is 3.5 Lipase is within normal limits Procalcitonin is normal Urine has trace leukocytes occult blood has been cultured but do not suspect UTI Digoxin level is undetectable, will add IV digoxin for rate control Respiratory panel is unremarkable Independently reviewed EKG atrial fibrillation at a rate of 122, nonspecific STT wave changes. Similar to prior EKGs Imaging studies independently reviewed: Generalized interstitial prominence can be seen with low lung volumes PET scan from August 01 shows extensive hypermetabolic more disease in the neck chest abdomen and pelvis with highest grade disease in the right retroperitoneum. There are areas of necrosis in this region and in the right external iliac chain. Additional hypermetabolic disease seen in the bones and lungs. Weightbearing lesions are at risk for pathologic fracture. Did discuss head CT and in light of the fact that findings would not alter care at this point we decided to not proceed with that imaging Consultations: Dr Bonilla Treatments: Aggressive fluid resuscitation, cefepime, ondansetron, clindamycin and vancomycin are started. IV digoxin and IV Tylenol all given Re-evaluations: 1020am patient is re-evaluated. He is meeting criteria for severe septic shock at this time. Blood pressures are trending down. Patient is still febrile and IV Tylenol is ordered. Discussion with his daughter regarding appropriate treatment. In looking at recent hospital admission notes he had been having significantly low blood pressures that were not responsive to fluids. His daughter notes that he had a very long discussion with his primary care doctor regarding code status, end of life, hospice referral etc.. The patient does recognize that he is getting close to the end of his life and is accepting of that. We discussed increasing care including central lines and pressors. With shared decision-making we opted to not continue with that, to continue with fluids and antibiotics and recognize that this presentation may well be the beginning of this gentleman's active dying process. 1130am patient's blood pressure continues to fall. Again reviewed findings with his daughter. We will continue with current plan of fluids and no pressors. She has called her brother who was arranged a flight to be available. 1200 care is reviewed with Dr. Bonilla who will admit the patient. Discussion: 77-year-old gentleman with CLL that likely is transforming into active lymphoma with atrial fibrillation rapid ventricular response and progressive decline with increasing weakness now with significant fever and altered mental status. He is meeting sepsis criteria. He had very thorough discussions with his primary doctor with admission approximately a week and a half ago and was very clear on his DNR status. At this point we are treating for presumed pneumonia possible aspiration pneumonia is considered. We will review his care with Dr. Bonilla who is on-call for Dr. Morris. If patient is not significantly improving within the next 12-24 hours than discussion regarding continued care and possible switch to complete comfort care may be appropriate. Daughter is prepared for this. Patient remains pleasantly confused and is complaining of no pain. Additional Information: Severe Sepsis Criteria [ x ] bacterial source of infection suspected and documented [ x ] 2 SIRS Criteria met [ ] HR >90 [ ] RR >20 [ ] fever or hypothermia [ ] leukocytosis/leukopenia/bandemia [ x ] Evidence of at least 1 organ system dysfunction [ ] Lactate > 2 [ ] BP < 90 or MAP <65, >40mm decrease from normal baseline [ ] Creat > 2.0 [ ] T. Bili > 2.0 [ ] platelet count < 100k [ ] altered mental status [ ] mechanical ventilation [ ] provider documentation of severe sepsis Severe Sepsis Determination. the patient has been screened and [ x] DOES meet criteria for severe sepsis [ ] DOES NOT meet criteria for severe sepsis Goal directed treatment Within 3 hours [ x ] blood cx drawn prior to abx [ x ] broad spectrum abx started [x ] lactic acid level checked [ ] lactic redrawn within 6 hours if >2.0 Septic Shock Criteria [ ] lactic > 4 at any time [ x ] SBP ,90 or MAP , 65 [x ] documentation of septic shock Time Septic Shock diagnosed: [1020am ] Septic Shock Determination. the patient has been screened and [ x] DOES meet criteria for septic shock [ ] DOES NOT meet criteria for septic shock Goal directed therapy within 3 hours of septic shock or initial hypotension [ x ] 30ml/kg fluid [ ] ABW used [ z] IBW (33.6) used due to BMI > 30 [ x ] patient or advocate declining fluid administration after shared decision making conversation Clinical reason for NOT initiating fluid bolus: Fluids will be continued, will will NOT process to IV pressors Within 6 hours (if continued hypotension after fluids or initial lactate >4) [ ] repeat volume status and tissue perfusion assessment documented after fluid bolus was completed at [Date/Time] Must include vital signs, cardiopulmonary exam, capillary refill, peripheral pulse evaluation, skin exam Critical Care Time Critical Care Time Critical Care Time: Yes Total Critical Care Time: 36 Attestation: Critical care time is separate from other billable procedures. There is a high probability of a significant, sudden or life-threatening deterioration that requires my full and direct attention, intervention and personal management. This critical care time includes consultation with family and other consulting doctors, review of records, and interpretation of data from labs, EKGs and imaging as well as managements of sepsis, multisystem organ failure, atrial fibrillation with rapid ventricular response Discharge Plan Departure Patient Disposition: Admitted As Inpatient Clinical Impression: Atrial fibrillation with rapid ventricular response Lymphoma Qualifiers: Lymphoma type: unspecified type Pneumonia Qualifiers: Pneumonia type: due to unspecified organism Sepsis Qualifiers: Sepsis type: sepsis due to unspecified organism Sepsis acute organ dysfunction status: with acute organ dysfunction Severe sepsis acute organ dysfunction type: encephalopathy Severe sepsis shock status: with septic shock Qualified Code(s): A41.9 - Sepsis, unspecified organism Fever Qualifiers: Fever type: unspecified Qualified Code(s): R50.9 - Fever, unspecified Admit Date/Time: 08/12/23 12:14 Admit Provider: Clyde Bonilla
[2023-08-12 09:16] LABS: INR 1.6 (0.9-1.3); Prothrombin Time 18.1 SECONDS (10.1-12.7)
[2023-08-12 09:18] LABS: PTT Partial Thromboplastin Tim 46 SECONDS (26-36)
[2023-08-12 09:20] LABS: Alanine Aminotransferase 29 IU/L (<50); Albumin 2.7 g/dL (3.5-5.0); Albumin Globulin Ratio 0.8 (1.0-2.8); Alkaline Phosphatase 137 U/L (38-126); Aspartate Aminotransferase 50 IU/L (17-59); BUN Creatinine Ratio 25.4 (6-22); Bilirubin Total 1.4 mg/dL (0.2-1.3); Blood Urea Nitrogen 16 mg/dL (9-20); Carbon Dioxide 26 mmol/L (22-32); Chloride 97 mmol/L (98-107); Estimated Glomerular Filt Rate > 60 mL/min (>60); Globulin 3.4 g/dL (1.7-4.1); Glucose 126 mg/dL (80-110); HEMOLYSIS < 15 (0-50); Lactate (Lactic Acid) 3.5 mmol/L (0.7-2.1); Lipase 51 U/L (23-300); Potassium 3.6 mmol/L (3.4-5.1); Sodium 133 mmol/L (137-145); Total Protein 6.1 g/dL (6.3-8.2)
[2023-08-12 09:36] LABS: Procalcitonin 0.11 ng/mL (<0.5)
[2023-08-12 09:37] LABS: Digoxin < 0.4 ng/mL (0.8-2.0)
[2023-08-12 10:15] LABS: Appearance Urine UA CLEAR; Bilirubin Urine UA NEGATIVE (NEGATIVE); Color Urine UA YELLOW; Glucose Urine UA NEGATIVE (Negative); Ketones Urine UA NEGATIVE (NEGATIVE); Leukocyte Esterase Urine UA TRACE (NEGATIVE); Nitrite Urine UA NEGATIVE (Negative); Occult Blood Urine UA 3+ (Negative); Protein Urine UA TRACE (Negative); Specific Gravity Urine UA <=1.005 (1.000-1.035); Urobilinogen Urine UA >=8.0 E.U./dL (0.2); pH Urine UA 6.5 (4.5-8.0)
--- NOTE | 2023-08-12 10:16 | PC.NURSE ---
HR 85/53 @ 1005, physician and discharge planner advised. NS fluid bolus placed on pump running at 999ML/hr per physician order.
[2023-08-12 10:22] LABS: RBC Urine 30-100/HPF (0-5/HPF)
[2023-08-12 10:22] LABS: Adenovirus Not Detected (Not Detect); Coronavirus 229E Not Detected (Not Detect); Coronavirus HKU1 Not Detected (Not Detect); Coronavirus NL 63 Not Detected (Not Detect); Coronavirus OC43 Not Detected (Not Detect); Human Metapneumovirus Not Detected (Not Detect); Human Rhinovirus/Enterovirus Not Detected (Not Detect); SARS- CoV-2 Not Detected (Not Detecte)
[2023-08-12 10:23] LABS: Amorphous Sediment Urine 1+; Bacteria Urine None Seen; Culture Indicated Urine Specimen Cultured; Squamous Epithelial Cell Urine None Seen (0-5/HPF); WBC Urine 1-5/HPF (0-5/HPF)
[2023-08-12 10:23] LABS: B. parapertussis Not Detected (Not Detecte); Bordetella pertussis Not Detected (Not Detect); Chlamydophila pneumoniae Not Detected (Not Detect); Influenza A(No subj detected) Not Detected (Not Detect); Influenza B Not Detected (Not Detect); Mycoplasma pneumoniae Not Detected (Not Detect); Parainfluenza Virus 1 Not Detected (Not Detect); Parainfluenza Virus 2 Not Detected (Not Detect); Parainfluenza Virus 3 Not Detected (Not Detect); Parainfluenza Virus 4 Not Detected (Not Detect); Respiratory Syncytial Virus Not Detected (Not Detect)
[2023-08-12] MEDS: ACETAMINOPHEN IV 1,000 MG/100 ML VIAL 400 MG IV (10:30)
--- NOTE | 2023-08-12 10:58 | PC.NURSE ---
Pt BP 78/52, physician aware, HR 116. IV tylenol finished. Fluids running at 999ML/Hr. No new orders. May initiate comfort care measures if blood pressure continues to drop, per physician.
[2023-08-12] MEDS: DIGOXIN 500 MCG/2 ML AMPUL 250 MCG IV (11:00)
[2023-08-12 11:01] LABS: Troponin I < 0.012 ng/mL (0.01-0.034)
[2023-08-12] MEDS: CEFEPIME 2 GM in SODIUM CHLORIDE 0.9% 100 ML IV (11:02)
[2023-08-12 11:10] LABS: Reflexed Lactate in 2 Hours Y
[2023-08-12 11:34] LABS: Lactate 2HR (Lactic Acid Rflx) 1.4 mmol/L (0.7-2.1)
[2023-08-12] MEDS: VANCOMYCIN 1,500 MG/300 ML PIGGYBACK 200 MG IV (11:37)
[2023-08-12] MEDS: SODIUM CHLORIDE 0.45% 1,000 ML 1000 ML IV (11:50)
--- NOTE | 2023-08-12 13:15 | PM.HP.1 ---
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 Patient recently discharged from the hospital worries admitted with new onset atrial fibrillation weakness and B symptoms. Patient was discharged home since being home patient has mainly been homebound. His daughter is helping take care of him at the bedside. He is fairly alert and oriented. Other than being bedridden he is had decreasing appetite and weight loss because he is having lots of sore throat and difficulty with swallowing. There has concerns that he has been aspirating and choking on food. This morning he woke up and had a fever to 103. At which point his daughter brought him into the hospital. His daughter states he was confused and disoriented which she normally has not such. He is not recently had any problems with pain in his chest coughing he is had some significant generalized weakness. Patient is responsive and answers direct questions but is not a good historian and mainly the history was obtained from his daughter who is at the bedside. I reviewed his previous admission and laboratory tests this current admission laboratory tests his recent imaging including recent PET scan which showed extensive hypermetabolic more disease involving neck chest abdomen pelvis including bones and lungs. The daughter states that he and Dr. Morris had a discussion at his last hospitalization that he is a DNR DNI. They did not want aggressive resuscitation measures. On discussion with the ER physician today they agreed for treatment for sepsis but does not want to be on pressure support mechanical ventilation or have a feeding tube. They would be amenable to hospice consultation and care more comfort. [facility] Medical History History of revision of total replacement of right 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 BCC (basal cell carcinoma) MGUS (monoclonal gammopathy of unknown significance) Obesity Hypertension Fracture of proximal end of right tibia Surgical History Hx of arthroscopy of knee History of total left knee replacement History of total right knee replacement Hx of repair of left rotator cuff Hx of cholecystectomy History of carpal tunnel surgery of left wrist History of carpal tunnel surgery of right wrist Hx of bilateral cataract extraction Hx of foot surgery History of vasectomy Hx of tonsillectomy Social History household members: none Smoking Status: Never smoker alcohol intake: current Meds Home Medications and Allergies Home Medications Medication Instructions Recorded Confirmed Type chondroitin sulfate A 250 mg 600 mg PO Q DAY ##0 03/08/17 07/28/23 History capsule (Chondroitin Sulfate) fexofenadine 180 mg tablet 180 mg PO DAILY 02/23/21 07/28/23 History montelukast 10 mg tablet 10 mg PO DAILY PRN asthma. 02/23/21 07/28/23 History pravastatin 20 mg tablet 20 mg PO DAILY 02/23/21 07/28/23 History zolpidem 5 mg tablet 5 mg PO BEDTIME PRN Insomnia 10/11/21 07/28/23 History PreserVision AREDS-2 1 tab BID 01/31/22 07/28/23 History multivitamin 1 tab DAILY 01/31/22 07/28/23 History ascorbic acid (vitamin C) 1,000 mg 1,000 mg PO Q12H 05/02/22 07/28/23 History tablet,extended release (Vitamin C ER) cholecalciferol (vitamin D3) 25 25 mcg PO DAILY 05/02/22 07/28/23 History mcg (1,000 unit) capsule (Vitamin D3) cyanocobalamin (vitamin B-12) 1,000 mcg PO DAILY 05/02/22 07/28/23 History 1,000 mcg tablet (Vitamin B-12) fluoxetine 10 mg capsule 10 mg PO DAILY 05/02/22 07/28/23 History folic acid 800 mcg tablet 0.8 mg PO DAILY 05/02/22 07/28/23 History glucosamine sulf dipot 1 cap PO DAILY 05/02/22 07/28/23 History chlr,msm,chond 550 mg-C 30 mg-paige 1 mg capsule (Glucosamine Chondroitin) loratadine 10 mg capsule 10 mg PO DAILY PRN Allergic 05/02/22 07/28/23 History Symptoms selenium 200 mcg capsule 200 mcg PO DAILY 05/02/22 07/28/23 History testosterone cypionate 50 mg/mL 50 mg IM WEEKLY 05/02/22 07/28/23 History intramuscular oil vitamin B6-vitamin E-magnesium 1 tab PO DAILY 05/02/22 07/28/23 History tablet vitamin E 268 mg (400 unit) capsule 400 unit PO DAILY 05/02/22 07/28/23 History vitamins A,C,K-roar-adnvao 2,148 2 tab PO DAILY 05/02/22 07/28/23 History mcg-113 mg-45 mg-17.4 mg tablet (PreserVision AREDS) Prevagen 1 tab DAILY 11/14/22 07/28/23 History ibrutinib 140 mg capsule 420 mg (3 x 140 mg) PO DAILY #90 02/27/23 07/28/23 Rx (Imbruvica) caps vitamin K2 100 mcg capsule 100 mcg PO DAILY 03/27/23 07/28/23 History apixaban 5 mg tablet (Eliquis) 5 mg PO BID #60 tabs 07/31/23 Rx digoxin 125 mcg (0.125 mg) tablet 0.125 mg PO DAILY@1700 #30 tabs 07/31/23 Rx dronabinol 2.5 mg capsule 2.5 mg PO TID PRN Anorexia #90 caps 07/31/23 Rx mirtazapine 15 mg tablet 7.5 mg (1/2 x 15 mg) PO BEDTIME 07/31/23 Rx #90 tabs Allergies Allergy/AdvReac Type Severity Reaction Status Date / Time levofloxacin AdvReac Severe HALLUCINATI Verified 07/27/23 18:26 ONS Exam Vital Signs (past 8 hours): - 08/12/23 08:55 08/12/23 08:56 08/12/23 08:56 Temperature Pulse Rate 132 H 125 H Respiratory Rate Blood Pressure 158/64 H Pulse Oximetry 97 97 Oxygen Delivery Method 08/12/23 08:57 08/12/23 08:57 08/12/23 08:58 Temperature Pulse Rate 108 H Respiratory Rate Blood Pressure 122/61 110/61 Pulse Oximetry 97 Oxygen Delivery Method 08/12/23 08:58 08/12/23 09:00 08/12/23 09:00 Temperature Pulse Rate 115 H 155 H Respiratory Rate 34 H 35 H Blood Pressure 106/58 L Pulse Oximetry 96 97 Oxygen Delivery Method 08/12/23 09:08 08/12/23 09:30 08/12/23 09:31 Temperature 102.9 F H Pulse Rate 123 H 140 H Respiratory Rate 20 34 H Blood Pressure 122/61 109/59 L Pulse Oximetry 97 97 Oxygen Delivery Method Room Air 08/12/23 09:31 08/12/23 09:45 08/12/23 09:45 Temperature 102.6 F H Pulse Rate 122 H 119 H Respiratory Rate 35 H 37 H Blood Pressure 104/54 L Pulse Oximetry 97 99 Oxygen Delivery Method 08/12/23 10:00 08/12/23 10:00 08/12/23 10:05 Temperature 102.9 F H Pulse Rate 127 H Respiratory Rate 35 H Blood Pressure 104/51 L 85/53 L Pulse Oximetry 98 Oxygen Delivery Method 08/12/23 10:05 08/12/23 10:08 08/12/23 10:08 Temperature 102.7 F H 102.7 F H Pulse Rate 116 H 112 H Respiratory Rate 36 H 37 H Blood Pressure 90/53 L Pulse Oximetry 98 98 Oxygen Delivery Method 08/12/23 10:09 08/12/23 10:09 08/12/23 10:10 Temperature 102.6 F H 102.6 F H Pulse Rate 110 H 112 H Respiratory Rate 37 H 35 H Blood Pressure 88/56 L Pulse Oximetry 97 97 Oxygen Delivery Method 08/12/23 10:10 08/12/23 10:15 08/12/23 10:15 Temperature 102.6 F H Pulse Rate 105 H Respiratory Rate 32 H Blood Pressure 88/52 L 86/52 L Pulse Oximetry 96 Oxygen Delivery Method 08/12/23 10:20 08/12/23 10:20 08/12/23 10:25 Temperature 102.4 F H Pulse Rate 105 H Respiratory Rate 34 H Blood Pressure 83/52 L 85/51 L Pulse Oximetry 96 Oxygen Delivery Method 08/12/23 10:25 08/12/23 10:30 08/12/23 10:30 Temperature 102.2 F H 102.2 F H Pulse Rate 106 H 105 H Respiratory Rate 34 H 34 H Blood Pressure 85/52 L Pulse Oximetry 96 96 Oxygen Delivery Method 08/12/23 10:35 08/12/23 10:35 08/12/23 10:40 Temperature 102.0 F H 102.0 F H Pulse Rate 104 H 103 H Respiratory Rate 35 H 31 H Blood Pressure 93/53 L Pulse Oximetry 97 97 Oxygen Delivery Method 08/12/23 10:40 08/12/23 10:45 08/12/23 10:45 Temperature 101.8 F H Pulse Rate 103 H Respiratory Rate 29 H Blood Pressure 84/55 L 82/57 L Pulse Oximetry 98 Oxygen Delivery Method 08/12/23 10:50 08/12/23 10:50 08/12/23 10:55 Temperature 101.8 F H Pulse Rate 102 H Respiratory Rate 35 H Blood Pressure 81/53 L 78/52 L Pulse Oximetry 97 Oxygen Delivery Method 08/12/23 10:55 08/12/23 11:00 08/12/23 11:00 Temperature 101.8 F H Pulse Rate 110 H 99 H Respiratory Rate 34 H Blood Pressure 76/51 L 80/50 L Pulse Oximetry 96 Oxygen Delivery Method 08/12/23 11:00 08/12/23 11:02 08/12/23 11:02 Temperature 101.7 F H 101.7 F H Pulse Rate 104 H 102 H Respiratory Rate 33 H 32 H Blood Pressure 81/49 L Pulse Oximetry 96 96 Oxygen Delivery Method 08/12/23 11:05 08/12/23 11:05 08/12/23 11:10 Temperature 101.5 F H Pulse Rate 111 H Respiratory Rate 31 H Blood Pressure 79/52 L 76/51 L Pulse Oximetry 96 Oxygen Delivery Method 08/12/23 11:10 08/12/23 11:15 08/12/23 11:15 Temperature 101.5 F H 101.1 F H Pulse Rate 106 H 102 H Respiratory Rate 31 H 31 H Blood Pressure 76/51 L Pulse Oximetry 95 95 Oxygen Delivery Method 08/12/23 11:20 08/12/23 11:20 08/12/23 11:25 Temperature 100.9 F H Pulse Rate 112 H Respiratory Rate 22 Blood Pressure 78/49 L 78/51 L Pulse Oximetry 97 Oxygen Delivery Method 08/12/23 11:25 08/12/23 11:30 08/12/23 11:30 Temperature 100.8 F H 100.8 F H Pulse Rate 100 H 98 H Respiratory Rate 31 H 28 H Blood Pressure 75/50 L Pulse Oximetry 95 94 Oxygen Delivery Method 08/12/23 11:35 08/12/23 11:35 08/12/23 11:40 Temperature 100.6 F H Pulse Rate 99 H Respiratory Rate 27 H Blood Pressure 77/47 L 76/51 L Pulse Oximetry 96 Oxygen Delivery Method 08/12/23 11:40 08/12/23 11:45 08/12/23 11:45 Temperature 100.4 F H 100.2 F H Pulse Rate 99 H 99 H Respiratory Rate 28 H 26 H Blood Pressure 78/47 L Pulse Oximetry 96 95 Oxygen Delivery Method 08/12/23 11:50 08/12/23 11:50 08/12/23 11:55 Temperature 100.0 F H 100.0 F H Pulse Rate 98 H 98 H Respiratory Rate 24 23 Blood Pressure 83/48 L Pulse Oximetry 94 96 Oxygen Delivery Method 08/12/23 11:55 08/12/23 12:00 08/12/23 12:00 Temperature 99.9 F H Pulse Rate 94 H Respiratory Rate 22 Blood Pressure 77/52 L 79/53 L Pulse Oximetry 96 Oxygen Delivery Method 08/12/23 12:05 08/12/23 12:10 08/12/23 12:15 Temperature 99.7 F H 99.5 F Pulse Rate 94 H 94 H Respiratory Rate 22 25 H Blood Pressure 89/56 L Pulse Oximetry 95 97 Oxygen Delivery Method 08/12/23 12:15 08/12/23 12:20 08/12/23 12:25 Temperature 99.3 F 99.1 F 98.8 F Pulse Rate 93 H 93 H 93 H Respiratory Rate 21 23 21 Blood Pressure Pulse Oximetry 98 99 96 Oxygen Delivery Method 08/12/23 12:30 08/12/23 12:30 08/12/23 12:45 Temperature 98.6 F 98.1 F Pulse Rate 93 H 91 H Respiratory Rate 21 21 Blood Pressure 90/54 L Pulse Oximetry 96 98 Oxygen Delivery Method 08/12/23 12:45 08/12/23 13:00 08/12/23 13:00 Temperature 97.7 F Pulse Rate 90 Respiratory Rate 17 Blood Pressure 83/52 L 83/54 L Pulse Oximetry 94 Oxygen Delivery Method Oxygen Delivery Method Room Air Narrative Exam Narrative: Gen.: Patient is alert poor historian HEENT: Pupils equal round and reactive neck is supple mild lymphadenopathy Cardio: S1-S2 irregular rate and rhythm Respiratory: Mild increased work of breathing with some rhonchorous lung sounds Abdomen: Abdomen is firm nontender no rebound and guarding Extremities: Patient has lower extremity chronic venous stasis changes with some edema Objective Labs 08/12/23 09:00 08/12/23 09:00 Labs: Laboratory Results - last 24 hr 08/12/23 08/12/2323 09:00 09:18 09:38 WBC 4.6 RBC 4.33 L Hgb 10.1 L Hct 31.7 L MCV 73.2 L MCH 23.4 L MCHC 32.0 RDW 22.1 H Plt Count 307 Neut % (Auto) 81.7 H Lymph % (Auto) 4.9 L Walker % (Auto) 12.4 Eos % (Auto) 0.0 L Baso % (Auto) 1.0 Neut # (Auto) 3700 Lymph # (Auto) 200 L Walker # (Auto) 600 Eos # (Auto) 0 Baso # (Auto) 0 Nucleated RBCs Cancelled Hypersegmented Neuts Cancelled Hypogranular Neuts Cancelled Reactive Lymphocytes Cancelled Smudge Cells Cancelled Other Cell Type Cancelled Toxic Granulation Cancelled Toxic Vacuolation Cancelled Dohle Bodies Cancelled Ruma Rods Cancelled WBC Morphology Comment Cancelled Platelet Estimate Cancelled Clumped Platelets Cancelled Plt Morphology Comment Cancelled RBC Morphology Cancelled Dimorphic RBCs Cancelled Polychromasia Cancelled Hypochromasia Cancelled Poikilocytosis Cancelled Basophilic Stippling Cancelled Anisocytosis Cancelled Microcytosis Cancelled Macrocytosis Cancelled Spherocytes Cancelled Pappenheimer Bodies Cancelled Sickle Cells Cancelled Target Cells Cancelled Tear Drop Cells Cancelled Ovalocytes Cancelled Stomatocytes Cancelled Helmet Cells Cancelled [place] Bodies Cancelled [place] Rings Cancelled [place] Cells Cancelled Acanthocytes (Spur) Cancelled Rouleaux Cancelled Schistocytes Cancelled PT 18.1 H INR 1.6 H APTT 46 H Sodium 133 L Potassium 3.6 Chloride 97 L Carbon Dioxide 26 BUN 16 Creatinine 0.63 L Estimated GFR > 60 BUN/Creatinine Ratio 25.4 H Glucose 126 H Lactate 3.5 H Calcium 9.0 Total Bilirubin 1.4 H AST 50 ALT 29 Alkaline Phosphatase 137 H Troponin I < 0.012 Total Protein 6.1 L Albumin 2.7 L Globulin 3.4 Albumin/Globulin Ratio 0.8 L Lipase 51 Procalcitonin 0.11 Urine Color Yellow Urine Appearance Clear Urine pH 6.5 Ur Specific [place] <=1.005 Urine Protein Trace H Urine Glucose (UA) Negative Urine Ketones Negative Urine Occult Blood 3+ H Urine Nitrate Negative Urine Bilirubin Negative Urine Urobilinogen >=8.0 Ur Leukocyte Esterase Trace H Urine RBC 30-100/hpf H Urine WBC 1-5/hpf Ur Squamous Epith Cells None seen Amorphous Sediment 1+ Urine Bacteria None seen Ur Culture Indicated? Specimen cultured Digoxin < 0.4 L Chlamy pneumoniae PCR Not detected Adenovirus (PCR) Not detected B.parapertussis DNA PCR Not detected Coronavirus OC43 (PCR) Not detected Coronavirus HKU1 (PCR) Not detected Coronavirus 229E (PCR) Not detected SARS-CoV-2 (PCR) Not detected Coronavirus NL63 (PCR) Not detected Human Metapneumovir PCR Not detected Influenza A (PCR) Not detected Influenza Type B (PCR) Not detected M. pneumoniae (PCR) Not detected Parainfluenza 1 (PCR) Not detected Parainfluenza 2 (PCR) Not detected Parainfluenza 3 (PCR) Not detected Parainfluenza 4 (PCR) Not detected RSV (PCR) Not detected Entero/Rhino (PCR) Not detected 08/12/23 11:15 WBC RBC Hgb Hct MCV MCH MCHC RDW Plt Count Neut % (Auto) Lymph % (Auto) Walker % (Auto) Eos % (Auto) Baso % (Auto) Neut # (Auto) Lymph # (Auto) Walker # (Auto) Eos # (Auto) Baso # (Auto) Nucleated RBCs Hypersegmented Neuts Hypogranular Neuts Reactive Lymphocytes Smudge Cells Other Cell Type Toxic Granulation Toxic Vacuolation Dohle Bodies Ruma Rods WBC Morphology Comment Platelet Estimate Clumped Platelets Plt Morphology Comment RBC Morphology Dimorphic RBCs Polychromasia Hypochromasia Poikilocytosis Basophilic Stippling Anisocytosis Microcytosis Macrocytosis Spherocytes Pappenheimer Bodies Sickle Cells Target Cells Tear Drop Cells Ovalocytes Stomatocytes Helmet Cells [place] Bodies [place] Rings Kerri Cells Acanthocytes (Spur) Rouleaux Schistocytes PT INR APTT Sodium Potassium Chloride Carbon Dioxide BUN Creatinine Estimated GFR BUN/Creatinine Ratio Glucose Lactate 1.4 Calcium Total Bilirubin AST ALT Alkaline Phosphatase Troponin I Total Protein Albumin Globulin Albumin/Globulin Ratio Lipase Procalcitonin Urine Color Urine Appearance Urine pH Ur Specific [place] Urine Protein Urine Glucose (UA) Urine Ketones Urine Occult Blood Urine Nitrate Urine Bilirubin Urine Urobilinogen Ur Leukocyte Esterase Urine RBC Urine WBC Ur Squamous Epith Cells Amorphous Sediment Urine Bacteria Ur Culture Indicated? Digoxin Chlamy pneumoniae PCR Adenovirus (PCR) B.parapertussis DNA PCR Coronavirus OC43 (PCR) Coronavirus HKU1 (PCR) Coronavirus 229E (PCR) SARS-CoV-2 (PCR) Coronavirus NL63 (PCR) Human Metapneumovir PCR Influenza A (PCR) Influenza Type B (PCR) M. pneumoniae (PCR) Parainfluenza 1 (PCR) Parainfluenza 2 (PCR) Parainfluenza 3 (PCR) Parainfluenza 4 (PCR) RSV (PCR) Entero/Rhino (PCR) Assessment & Plan Assessment and plan (1) Sepsis: Qualifiers: Sepsis acute organ dysfunction status: with acute organ dysfunction Sepsis type: sepsis due to unspecified organism Severe sepsis acute organ dysfunction type: encephalopathy Severe sepsis shock status: with septic shock Qualified Code(s): A41.9 - Sepsis, unspecified organism; R65.21 - Severe sepsis with septic shock; G93.41 - Metabolic encephalopathy Status: Acute (2) Fever: Qualifiers: Fever type: unspecified Qualified Code(s): R50.9 - Fever, unspecified Status: Acute (3) Lymphoma: Qualifiers: Lymphoma type: unspecified type Status: Acute Plan Sepsis patient with fever hypotension and elevated lactic acid said with concerning clinical picture of sepsis possibly due to aspiration pneumonia or urinary source. Patient will be placed on IV antibiotics. Patient has received IV fluid resuscitation in the emergency department his blood pressure is a little bit improved. Patient's repeat lactate is decreased. We will continue with IV antibiotics. Patient's wishes are not to be on blood pressure support or have aggressive mechanical ventilation or feeding tubes and would like to maximize comfort as per wishes from daughter. Acute metabolic encephalopathy due to underlying infectious etiology and progression of his lymphoma. Reorient. Resuscitate with fluids and IV antibiotics for infectious sources and continue to monitor. CLL patient with CLL probable conversion to lymphoma. PET-CT scan shows multiple areas of hypermetabolic areas throughout the body consistent with conversion. Patient's family wishes are potential biopsy. But at this point they are wanting to maximize comfort. Atrial fibrillation. Patient recent diagnosed with atrial fibrillation heart rates okay at this point. We will continue digoxin as well as anticoagulation with Eliquis. Hypertension. Blood pressure will be held due to hypotension Hyperlipidemia this medication will be held during his hospital stay Depression. Patient's medication for depression will be held DVT prophylaxis patient on Eliquis Disposition plan. Continue with IV fluids IV antibiotics and maximize comfort hospice consultation
--- NOTE | 2023-08-12 13:16 | PC.NURSE ---
Dr. Bonilla at bedside for consultation with patient and daughter.
--- NOTE | 2023-08-12 13:27 | PC.NURSE ---
Patient and daughter spoke to Dr. Luna and Dr. Bonilla at bedside regarding treatment plan, DNR status and comfort measures.
[2023-08-12] MEDS: LACTATED RINGERS 1,000 ML 150 ML IV (14:12)
[2023-08-12] MEDS: CLINDAMYCIN 900 MG/50 ML PIGGYBACK 50 MG IV (14:12)
[2023-08-12] MEDS: cefTRIAXone 1,000 MG in SODIUM CHLORIDE 0.9% 100 ML 200 MG IV (15:16)
[2023-08-12] MEDS: LACTATED RINGERS 500 ML 1000 ML IV ×2 (16:00→18:40)
[2023-08-12] MEDS: LACTATED RINGERS 1,000 ML 500 ML IV (18:41)
[2023-08-12] MEDS: DIGOXIN 0.125 MG TABLET PO (18:42)
--- NOTE | 2023-08-12 20:02 | PC.NURSE ---
1600: new admit from ED. EMS brought patient in after change in LOC. dx: UTI. has fagan, came in w/ fever 102.F given APAP IV and vanco and sepsis protocol in ED. hx of lymphoma. per MD patient has cancer thru-out his body. anticipate eventual comfort care. has new onset afib. dig ordered for afib. b/p Dr Bonilla notified. new order for LR bolus 500cc. given and b/p rechecked. . orders for another LR bolus 500cc. after LR bolus, he will continue LR at 200/hour. daughter bello is rooming in [facility]. patient's 78th birthday is just around the corner, and he is a pleasant polite gentleman. bed alarm is on, call light w/in reach.
[2023-08-12] MEDS: APIXABAN 5 MG TABLET PO (20:27)
[2023-08-12] MEDS: LACTATED RINGERS 1,000 ML 200 ML IV (21:08)
--- NOTE | 2023-08-12 22:45 | PC.NURSE ---
Spoke to patient's daughter tonight in regards patient's diagnosis. Daughter states I want to make sure we are following his wishes and we are looking into hospice/comfort care . Daughter was tearful when speaking to this nurses but state that she doesn't want to see her dad suffer anymore.
[2023-08-12] MEDS: VANCOMYCIN 1,250 MG/250 ML PIGGYBACK 250 MG IV (23:30)
[2023-08-13] MEDS: LACTATED RINGERS 1,000 ML 200 ML IV ×4 (00:54→21:37)
[2023-08-13 04:00] VITALS: BP 90/55; PULSE 96; RESP 16; TEMP 37.1; O2SAT 94
[2023-08-13 05:25] LABS: Hematocrit 27.5 % (41-53); Mean Corpuscular HGB Conc 32.6 % (30-36); Mean Corpuscular Hemoglobin 23.6 PG (26-34); Mean Corpuscular Volume 72.3 fL (80-100); Platelet Count 284 X10^3/uL (150-400); Red Cell Distribution Width 21.9 % (11.6-14.8); White Blood Cell Count 4.1 X10^3/uL (4.5-11.0)
[2023-08-13 05:26] LABS: Add Manual Diff / Slide Review YES
[2023-08-13 05:27] LABS: Alanine Aminotransferase 22 IU/L (<50); Albumin Globulin Ratio 0.7 (1.0-2.8); Alkaline Phosphatase 92 U/L (38-126); Aspartate Aminotransferase 36 IU/L (17-59); BUN Creatinine Ratio 29.4 (6-22); Bilirubin Total 0.8 mg/dL (0.2-1.3); Blood Urea Nitrogen 15 mg/dL (9-20); Calcium 7.9 mg/dL (8.4-10.2); Carbon Dioxide 24 mmol/L (22-32); Chloride 103 mmol/L (98-107); Estimated Glomerular Filt Rate > 60 mL/min (>60); Glucose 78 mg/dL (80-110); HEMOLYSIS 50 (0-50); Potassium 3.6 mmol/L (3.4-5.1); Sodium 132 mmol/L (137-145)
[2023-08-13 07:37] LABS: Neutrophils Absolute Manual 3116 /uL (3000-5900); Total Cells Counted 100
[2023-08-13 07:38] LABS: Microcytosis 1+
[2023-08-13 07:39] LABS: Poikilocytosis 1+; Schistocytes 1+
--- NOTE | 2023-08-13 09:47 | PC.NURSE ---
Addendum entered by Margarita Bella R.N. 08/13/23 14:05: family requests PT/ONLINE BANKING SPECIALIST. orders received. ONLINE BANKING SPECIALIST assessed patient, recommends sips of water after good oral care, no straw. oral care w/ toothbrush is strongly recommended. tolerating Vanco PIV. RUE slightly puffy, elevated on pillow, rate decreased to 100 mL / hour. Original Note: 0900: patient is alert when spoken to, 1-2pa ADL assistance & bed mobility. continues w/ IVF (LR at 200/hour) requested to d/c all PO meds, as patient is unable to safely take meds w/o aspirating due to hyperextension of his neck. order received from Dr Alvarez, who spoke w/ patient and daughter bello; new order received: ok for sips of fluid ad carlos. patient turned q2 hours and prn. fagan patent. oral swabs available at bedside, the medical center. anticipate d/c tomorrow, comfort care/hospice. awaiting arrival of son Aj from out of town. call light w/in reach. bed alarm is on.
--- NOTE | 2023-08-13 10:41 | CM.DANOTE ---
Addendum entered by KAYLA Canales 08/13/23 13:43: ADD: SW met bedside with pt's DPOA Dtr Maureen and pt was more alert and able to participate and explained role. They confirm that [facility] had a delayed start of care and didn't see [facility] until the RN did initial intake a couple days ago and ST was to be in the home today but pt admitted to the hospital. SW discussed rehab/tx vs comfort measures and pt and Dtr currently interested in ST eval and PT eval while pt admitted to determine his strength and abilities to help determine if pt can safely d/c home with [facility] and Dtr assist and Resume [facility] vs SNF vs Hospice. Family states they have good experience with [facility] when pt's spouse about 2 yrs ago on Hospice services. Discussed briefly pt's Goals of Care and currently he is interested in maintaining some mobility and independence at home if possible. He would consider SNF or even Hospice at d/c if necessary but currently his goal is home with HH and CG assist. Pt's son is flying in from [place] soon and should be bedside by early afternoon to discuss further. ST/PT orders placed and SW updated PT and they will attempt to eval pt today and will alert ST about new orders. Family and pt agreeable to [facility] completing Info Visit with them today/tomorrow and will wait to see how pt does with ST and PT towards determining needs at d/c. SW faxed initial clinicals to [facility] to alert them to pt's admission to the hospital and possible Resumption of HH at discharge pending progress. BF Original Note: Patient is a 77 yo male who was a Readmit on 08/12/23 for Weakness/AMS/Sepsis. Pt has MCR and AARP for insurance and his PCP is Dr. Salinas Morris. EMR was reviewed. Per , pt with likely lymphoma at baseline and hx of AFIB and admitted for sepsis and IV-Abx and then likely switch to Comfort Measures with Hospice referral at home. Per MD, family requested SW to make a Hospice referral for Info Visit to answer questions and then likely discharge pt with Hospice services. SW called [facility] due to pt's location and they confirm they have openings in the next couple days and SW updated on pt status and faxed referral to review and [facility] will contact pt's DPOA Dtr Maureen as pt is encephalopathic at this time. SW attempted to meet bedside with Dtr as pt is sleeping and confused but she ran home for an hour or two and will be back bedside around lunch time and pt's son is flying in from [place] today to be bedside as well. Per RN, pt currently NPO due to his increased swallow/aspiration but may allow ice chips for comfort. Pt was recently discharged on 08/01/23 back home with new [facility] referral and continued [facility] and local [facility] support. Patient has been living alone since his approx 2 years ago, has been managing well, indp w/ADLs with cane or walker but has seen a steep decline in the past month and has now been mostly bedridden the past week or two. Plan: SW to follow for family to return bedside and [facility] Info Visit to confirm plan of return home with [facility] and family support with Hospice services when medically stable to d/c after IV-Abx course. KAYLA Canales Discharge Planning/Care Management Advanced directive, confirm from FAMILY Start: 08/12/23 13:48 Freq: Q24H Status: Active Protocol: Document 08/12/23 13:48 BV (Rec: 08/12/23 18:01 BV [id number]) Advance Directive, confirm on record Time 18:00 Person contacted daughter bello Copy received No Copy received No Advanced directive available on record No CM Discharge Assessment Start: 08/13/23 10:32 Freq: Status: Active Protocol: Document 08/13/23 10:35 BF (Rec: 08/13/23 10:41 BF [id number]) Discharge Planning Assessment Assigned Reproductive Surgeon KAYLA Jones/Assigned Designee Name Ramon menon Contact Information [phone] Advance Directives? Yes Advance Directives on File No History Provided By Patient,Family Member,Medical Record Has Patient been admitted in last 30 Yes days? Comment Discharged last on 08/01/23 home with [facility] Prior Living Arrangements House Household Members caregiver,none Comment Has [facility] Type of transporation used prior to Relies on Others admit Independent with ADL's Yes: somewhat Is patient alert and oriented? Yes: somewhat, some cog impairment Needs Assistance With Meal Prep,Managing Medications ,Home Chores / Shopping Caregiver for Another No Community Services used prior to Physical Therapy,Home Health admission: Nurse Comment Open with [facility] from last admission Patient/Family Preference Home with Home Health Comment New hospice [facility] referral made Comment Patient and family would like a discharge home and resumption of in home care through [facility]. Patient is open to an increase in care at home as needed. [facility] referral made Discharge Plan Hospice Transportation Arrangement Family Additional Comment Waiting for [facility] Info Visit with family for home plan Whiteboard Updated in Patient Room with Yes name and ext. # of Reproductive Surgeon Review Status In Process Please Provide Date Initial DC 08/13/23 Assessment Was Performed Next Review Type Continued Stay Review
[2023-08-13 12:00] VITALS: BP 112/65; PULSE 105; RESP 16; TEMP 36.7; O2SAT 95
[2023-08-13] MEDS: VANCOMYCIN 1,250 MG/250 ML PIGGYBACK 150 MG IV (12:38)
[2023-08-13] MEDS: cefTRIAXone 1,000 MG in SODIUM CHLORIDE 0.9% 100 ML 150 MG IV (14:28)
--- NOTE | 2023-08-13 16:46 | ST.IPCSEOM ---
Visit Care Team Role Provider Type Salinas Morris MD Primary Care Provider Physician Specialty: [facility] Address: [address] [place] [address] [place], [address] Email: [email or web address] Luna MD Emergency Provider Physician Referring Provider Specialty: Emergency Medicine Address: [address] [place] [address], [id number] Email: Clyde Bonilla MD Admit Provider Physician Attending Provider Specialty: [facility] Address: [address] [place] [address] [place], [address] Email: [email or web address] Current Diagnoses Sepsis, unspecified organism (08/12/23) Non-Hodgkin lymphoma, unspecified, unspecified site (08/12/23) Metabolic encephalopathy (08/12/23) Fever, unspecified (08/12/23) Severe sepsis with septic shock (08/12/23) Past Medical History (Last Reviewed 08/12/23 @ 13:21 by Clyde Bonilla MD) BCC (basal cell carcinoma) (Medical) Removed from various locations Fracture of proximal end of right tibia (Medical) 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 Patient recently discharged from the hospital worries admitted with new onset atrial fibrillation weakness and B symptoms. Patient was discharged home since being home patient has mainly been homebound. His daughter is helping take care of him at the bedside. He is fairly alert and oriented. Other than being bedridden he is had decreasing appetite and weight loss because he is having lots of sore throat and difficulty with swallowing. There has concerns that he has been aspirating and choking on food. This morning he woke up and had a fever to 103. At which point his daughter brought him into the hospital. His daughter states he was confused and disoriented which she normally has not such. He is not recently had any problems with pain in his chest coughing he is had some significant generalized weakness. Patient is responsive and answers direct questions but is not a good historian and mainly the history was obtained from his daughter who is at the bedside . I reviewed his previous admission and laboratory tests this current admission laboratory tests his recent imaging including recent PET scan which showed extensive hypermetabolic more disease involving neck chest abdomen pelvis including bones and lungs. The daughter states that he and Dr. Morris had a discussion at his last hospitalization that he is a DNR DNI. They did not want aggressive resuscitation measures. On discussion with the ER physician today they agreed for treatment for sepsis but does not want to be on pressure support mechanical ventilation or have a feeding tube. They would be amenable to hospice consultation and care more comfort. Based on discussion with nursing, pt and daughter are considering comfort/hospice, but trying rehabilitative efforts to see if there is any chance for improvement before making that decision. Nursing reports that they have been unable to provide food or meds PO due to the pt coughing on foods and liquids. He has stated that he does not want a feeding tube. Subjective Observations The pt was laying partially reclined in bed upon ST entry to room, with his daughter, Mary, present in the room throughout the evaluation. He was alert, oriented, and cooperative with MULTIPLE NEEDLE STITCHER evaluation. When MULTIPLE NEEDLE STITCHER asked pt when was the last time he had brushed his teeth, he stated it had not been since last week. Nursing reports they have cleaned his mouth out with [place] sponges, but not with toothbrush. After repositioning pt upright in bed, MULTIPLE NEEDLE STITCHER facilitated oral care while providing pt and daughter with instruction in steps to oral care, as well as education regarding the need for using a toothbrush to break up biofilm and the importance of timing oral care before PO trials/intake. Due to fatigue and limited arm mobility due to IV's in both arms, pt was partially dependent for oral care. Reported by Patient/Caregiver Pain/Discomfort Yes Location Neck Comment Pt states he has a stiff neck and is unable to move his neck much. His neck was positioned slightly flexed backwards against pillow, but roll had been placed behind neck to stabilize. Current Diet NPO Baseline Feeding Method Needs some assistance The IDDSI Framework Protocol: IDDSI.1 Objective Assessment Mental Status Alert,Responsive,Cooperative Oral Integrity Oral residue Dentition Missing teeth,Decay Lip Function Mild impairment Pucker Reduced range of motion, Reduced strength Lip Retraction Reduced range of motion Alternating Pucker/Lip Retraction Incoordination Tongue Function Moderate impairment Observations of Tongue at Rest Within normal limits Tongue Protrusion Reduced range of motion Tongue Lateralization Reduced strength Hard/Soft Palate Function Within normal limits Observations of Hard/Soft Palate Abnormal color Comment Pt presented with mild labial weakness and discoordination resulting in diminished movement during pucker task and difficulty sequencing pucker/smile task. When cued to smile, ROM was decreased with pt having difficulty showing his teeth. Tongue was observed to be mildly discoordinated, with minimal tongue protrusion when cued to stick tongue out. Lateralization showed ROM WFL but decreased strength/ coordination. Soft palate was observed to be mildly red/inflamed, though pt did not report sore throat. Pt is missing some teeth. Additionally, multiple teeth present appeared blackened at the root with the gums. During oral care, pt's gums bled from toothbrush, indicating lack of recent oral care. Oral residue was removed from labial and buccal cavities. Food and Liquid Trials Position During Assessment Upright (90 degrees) Liquids Trialed Ice chips,Thin (IDDSI 0) Solid Trials Purred (IDDSI 4) Administration Type Tea spoon,Needs some assistance Oral Impairment Moderately impaired Oral Phase Comments During trials ice chips, pt was cued to hold ice chip in front of mouth and allow to melt before swallowing. Pt was able to hold ice chip anteriorly WFL and AP tongue prpulsion appeared WFL during these trials, though bolus size was very small due to size of ice chip. During trials of thin liquids (water) via teaspoon, pt demonstrated delayed A-P transit initiation and multiple swallows on single tsp of water. Unclear if this was due to oral residue or only a result of clearing pharyngeal residue. During trials applesauce, minimal bolus was accepted as mandibular opening was dminished. A-P transit was prolongued/disorganized; however, no oral residue remained following uncued multiple swallows. Trials of IDDSI 5 through 7 solids were omitted for safety concerns. Pharyngeal Impairment Severely impaired Pharyngeal Phase Comments During trials ice chips, the pt demonstrated throat clearing on 50% of trials of small ice chips, though he did not endorse any sensation of water being in his throat or going down the wrong tube. Throat clear is indicative of pharyngeal residue and possibly of penetration/ aspiration. During trials thin (water) via teaspoon sips, pt demonstrated throat clearing on 100% of trials and cough on 50% of trials, both suggestive of possible aspiration/penetration. Use of effortful swallow reduced overt s/sx aspiration/ penetration. Chin tuck was trialed, but resulted in wet cough and was discontinued. Swallow was audible across trials. During trials puree, pt demonstrated throat clearing and wet vocal quality following the swallow. MULTIPLE NEEDLE STITCHER cued pt to clear throat, which resulted in audible clearance of pharyngeal residue, indicating residue had indeed remained in the pharynx following the swallow. Fatigue/Endurance Moderate fatigue Strategies Attempted Chin tuck,Effortful swallow The IDDSI Framework Protocol: IDDSI.1 Findings Swallowing Function Dysphagia unspecified Contributing Factors to Swallow Reduced oral strength/ Impairment coordination/sensation, Impaired airway protection, Excessive pharyngeal residue Prognosis Guarded Based on History of aspiration/ aspiration pneumonia, Comorbidities Impact on Safety and Functioning Risk for aspiration,Risk for inadequate nutrition/hydration Recommendations Instrumental Assessment Yes Recommended Liquids Thin (IDDSI 0) Other Recommendations MULTIPLE NEEDLE STITCHER recommends: 1. Strict oral care 4x/day. Even if pt were NPO status, he is at risk of aspirating his saliva. If bacteria count in oral cavity is high, this aspirated saliva poses a high risk for causing aspiration PNA. 2. Small sips of water (water only) via teaspoon, while upright, following oral care. If aspirated, in theory, a small amount of clean water should be tolerated by the lungs. Providing sips of water will provide comfort and maintain swallow integrity while minimizing risk of asp PNA as much as possible. 3. Solids not recommended by mouth. 4. Medication not recommended by mouth. 5. Consider MBSS if pt able to tolerate and if in line with goals of care. Safety Precautions/Swallowing Feed only when alert,Remain Recommendations upright (90 degrees) during all oral intake,Small bites and sips when eating,1 to 1 feeding assistance,Family assistance/supervision,Strict oral care after intake Medication Recommendations Not Recommended by Mouth Discharge Recommendations penitentiary facility,Home with Hospice,Palliative care Education Patient/Caregiver Education Described results of evaluation,Patient expressed understanding of evaluation, Family/caregivers expressed understanding of evaluation, Family/caregivers expressed agreement with goals & treatment plans,Patient requires further education/ training,Family/caregivers require further education/ training Goals Short-term Goals Pt and family will demonstrate understanding and use of safety precautions to minimize risk of aspiration PNA ( upright posture, oral care, water only) while providing small sips of water for pt comfort. Pt will demonstrate completion of strengthening exercises for swallowing with 80% accuracy independently in order to restore pharyngeal strength and decrease risk of aspiration. Long-term Goals Pt will tolerate least restrictive diet in order to meet nutrition/hydration needs .
--- NOTE | 2023-08-13 18:08 | P.PN_ITS ---
Subjective Subjective Interval history: Chief complaint weakness Patient is doing okay this morning has no complaints no pain but still too weak to get out of bed and has swallow is so weak nursing is not comfortable giving him fluids or pills due to aspiration risk. Exam Vital Signs (past 8 hours): - 08/13/23 12:00 Temperature 98.1 F Pulse Rate 105 H Respiratory Rate 16 Blood Pressure 112/65 Pulse Oximetry 95 Oxygen Flow Rate 0 Oxygen Delivery Method Room Air Oxygen Flow Rate 0 Narrative Exam Narrative: Alert elderly lying in bed with family at bedside Const Other: Well-developed well-nourished Resp Other: Grossly clear to auscultation bilaterally Cardio Other: Regular rate S1-S2 GI Other: Soft with diminished bowel sounds nontender Other: Draining scant yellow urine to Frost Neuro Other: Alert awake disoriented but reorientable poor historian Extrem Other: Moving all extremities Objective Labs 08/13/23 04:47 08/13/23 04:47 Labs: Laboratory Results - last 24 hr 08/13/23 04:47 WBC 4.1 L RBC 3.80 L Hgb 9.0 L Hct 27.5 L MCV 72.3 L MCH 23.6 L MCHC 32.6 RDW 21.9 H Plt Count 284 Neut % (Auto) Not Reportable Lymph % (Auto) Not Reportable Richardson % (Auto) Not Reportable Eos % (Auto) Not Reportable Baso % (Auto) Not Reportable Lymph # (Auto) Not Reportable Richardson # (Auto) Not Reportable Baso # (Auto) Not Reportable Total Counted 100 Seg Neutrophils % 71.0 H Band Neutrophils % 5.0 Lymphocytes % (Manual) 12.0 L Monocytes % (Manual) 12.0 H Neutrophils # (Manual) 3116 RBC Morphology See below Poikilocytosis 1+ H Microcytosis 1+ H Schistocytes 1+ H Sodium 132 L Potassium 3.6 Chloride 103 Carbon Dioxide 24 BUN 15 Creatinine 0.51 L Estimated GFR > 60 BUN/Creatinine Ratio 29.4 H Glucose 78 L Calcium 7.9 L Total Bilirubin 0.8 AST 36 ALT 22 Alkaline Phosphatase 92 Total Protein 5.0 L Albumin 2.0 L Globulin 3.0 Albumin/Globulin Ratio 0.7 L PFSH Medical History History of revision of total replacement of right 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 BCC (basal cell carcinoma) MGUS (monoclonal gammopathy of unknown significance) Obesity Hypertension Fracture of proximal end of right tibia Surgical History Hx of arthroscopy of knee History of total left knee replacement History of total right knee replacement Hx of repair of left rotator cuff Hx of cholecystectomy History of carpal tunnel surgery of left wrist History of carpal tunnel surgery of right wrist Hx of bilateral cataract extraction Hx of foot surgery History of vasectomy Hx of tonsillectomy Social History household members: caregiver and none Smoking Status: Never smoker alcohol intake: current Assessment & Plan Assessment & Plan narrative: #sepsis, source unknown likely urine or pulmonary stable and improving somewhat on antibiotics and fluids. #acute metabolic encephalopathy 2/2 infectious state and lymphoma progression, reorient as necessary and treat infection #CLL hx with probable conversion PET shows multiple hot spots of hypermetabolic areas throughout the body consistent with conversion. Patient's family are interested in potential biopsy but are prioritizing comfort. # atrial fibrillation Rate controlled at this point continue digoxin and Eliquis # hypertension Hold outpatient blood pressure medication due to low blood pressure #Hyperlipidemia hold home med for now # depression Stable hold home med for now #dysphagia progressive issue - per family he has to stand up to drink and take his meds at home but he is too weak to stand up currently. 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 NPO. dispo: admit for iv abx and fluids. Hospice conversation ongoing, CM is exploring, home with home hospice may be discharge plan PCP: Yolie Morris MDM: daughter Quality VTE Deep Vein Thrombosis/Pulmonary Embolism Present on Admission: No
[2023-08-13 20:00] VITALS: BP 108/65; PULSE 102; RESP 20; TEMP 36.9; O2SAT 97
[2023-08-13] MEDS: VANCOMYCIN 1,250 MG/250 ML PIGGYBACK 250 MG IV (20:01)
--- NOTE | 2023-08-13 23:27 | PC.NURSE ---
Patient is alert but oriented only to name, birthdate and month. Breath sounds CTA with RA sat of 97%. HR irregular with hx of afib and tachycardic with rate of 102. Denied nausea. BT present and did have a smear of stool when last repositioned. Indwelling catheter is patent and urine is clear, dark ben. Repositioned q2h as not able to move himself due to generalized weakness; does try to help with turning. Gait not assessed; has order for PT eval. Denied pain. Wearing bilateral calf SCD's. 2+ bilateral LE edema noted. Currently NPO except for sips with tsp related to difficulty swallowing. Did request water earlier and was able to take 4 tsp with minimal coughing noted. Family is having discussion re: hospice. Fall risk score is high and bed alarm is activated.
[2023-08-14] MEDS: LACTATED RINGERS 1,000 ML 200 ML IV (02:55)
[2023-08-14 04:00] VITALS: BP 118/71; PULSE 105; RESP 18; TEMP 35.9; O2SAT 96
[2023-08-14] MEDS: VANCOMYCIN 1,250 MG/250 ML PIGGYBACK 250 MG IV ×3 (04:21→20:10)
--- NOTE | 2023-08-14 08:43 | PM.PN.1 ---
Subjective Subjective Date Patient Seen: 08/14/23 Time Patient Seen: 08:43 Interval history: Reviewed chart and met with patient. Son is present as well as daughter. Patient is feeling much better today. He was not able to swallow at all when evaluated speech therapy yesterday. His lower extremity edema is much better. He is a Frost catheter in place and at this point does not want have it removed. He is still on 200 cc of IV fluid in hour. He is not have any fevers or chills He denies any pain Feels energy is better and overall feeling better today Exam Vital Signs (past 8 hours): - 08/14/23 04:00 08/14/23 04:00 Temperature 96.7 F L Pulse Rate 105 H Respiratory Rate 18 Blood Pressure 118/71 Pulse Oximetry 96 Oxygen Flow Rate 0 Oxygen Delivery Method Room Air Oxygen Flow Rate 0 Narrative Exam Narrative: Patient appears chronically ill but in no apparent distress. He is awake and alert and recognizes me and is smiling and making jokes and grateful and taking part in conversation Afebrile vital signs are stable except for heart rate in the low 100s. O2 sat on room air is mid 90s. HEENT is remarkable for significant pallor. Mucous membranes moist and pink without lesions no evidence of thrush Neck: Supple without adenopathy Chest: Clear to auscultation without wheezes rhonchi or crackles but decreased breath sounds bibasilar Cor: Irregularly irregular rhythm and rate at low 100s without murmur, distant S1-S2 Abdomen: Positive bowel sounds, soft Extremities with 2+ pitting edema to mid lower leg Objective Labs 08/14/23 15:15 08/14/23 15:15 [facility] Medical History History of revision of total replacement of right 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 BCC (basal cell carcinoma) MGUS (monoclonal gammopathy of unknown significance) Obesity Hypertension Fracture of proximal end of right tibia Surgical History Hx of arthroscopy of knee History of total left knee replacement History of total right knee replacement Hx of repair of left rotator cuff Hx of cholecystectomy History of carpal tunnel surgery of left wrist History of carpal tunnel surgery of right wrist Hx of bilateral cataract extraction Hx of foot surgery History of vasectomy Hx of tonsillectomy Social History household members: family and caregiver Smoking Status: Never smoker alcohol intake: current Assessment & Plan Assessment & Plan narrative: Assessment 1. Sepsis, source unknown likely urine or pulmonary, possible aspiration pneumonia. Blood culture negative thus far Plan: Stable and improving somewhat on antibiotics and fluids. Will continue with ceftriaxone IV. Will decrease IV fluids. Initially to 125 cc an hour but then later in the evening decreased to 75 cc per hour Assessment 2. Acute metabolic encephalopathy improving. Suspect related to treating infection and IV hydration Plan 2/2 infectious state and lymphoma progression, reorient as necessary and treat infection Assessment 3. 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 Patient's family are interested in potential biopsy but are prioritizing comfort. Conversation regarding hospice has been started. Assessment 4. Atrial fibrillation Plan Rate controlled at this point continue digoxin and Eliquis Assessment 5. Hypertension now with hypotension due to infection presumably Plan Hold outpatient blood pressure medication due to low blood pressure. Will continue to monitor his blood pressure is coming up. Assessment 6. Hyperlipidemia Plan hold home med for now due to unable to swallow. Assessment 7. Depression Stable hold home med for now Assessment 8. Dysphagia progressive issue - per family he has to stand up to drink and take his meds at home but he is too weak to stand up currently. ANALYST FOOD AND BEVERAGE/PT jatin ordered. NPO. Speech therapy worked with him yesterday and he was quite weak and unable to swallow at all. Unfortunately speech therapy not here today so they did not work with him. I suspect that he is weak enough that in order to improve his swallow he would need to have a feeding tube and I do not think this is part of their wishes. dispo: admit for iv abx and fluids. Hospice conversation ongoing, CM is exploring, home with home hospice may be discharge plan PCP: Yolie Morris MDM: daughter 52 minutes was spent with patient reviewing chart and discussing with nursing in meeting with patient in his children, formulating a plan and documentation. Quality VTE Deep Vein Thrombosis/Pulmonary Embolism Present on Admission: No
[2023-08-14] MEDS: LACTATED RINGERS 1,000 ML 125 ML IV (09:05)
[2023-08-14 11:00] VITALS: BP 106/71; PULSE 82; RESP 18; TEMP 36.7; O2SAT 95
--- NOTE | 2023-08-14 12:10 | CM.DPC ---
Addendum entered by KAYLA Canales 08/14/23 14:51: ADD: PT recommending SNF currently as pt a heavy assist and fatigues quickly but able to participate. SW met bedside with pt, who was sleeping soundly, and son and he confirms his sister was present during PT eval and they currently do not feel they can adequately manage pt at home with HH and [facility] since he is a 2PA. SW provided the SNF Choice List and son confirms if they decide on SNF rehab then preference would be [facility] due to location. Son states that ST might not be available to see pt today but will work with pt tomorrow and this is their biggest concern with his nutrition. They are waiting to speak to PCP in the AM to determine SNF rehab vs Hospice. SW made initial SNF referral to [facility] and left msg to review as pt SNF vs Hospice. PASRR will be needed if SNF. BF Original Note: DCP Cont: Per MD, pt making some improvements but not yet medically stable to d/c today and awaiting for further ST and then initial PT eval towards determining d/c needs. Per ST eval, pt currently only able to tolerate sips/spoonfuls of clear liquids and ice chips and will continue to work with pt more today to see if he can progress as he is very high risk for aspiration. PT pending. SW met bedside with pt and adult son and explained role and pt remembered this SW from yesterday. Both in agreement that they are hopeful but concerned about pt's ability to get adequate nutrition by mouth as pt has expressed multiple times that he does not want artificial nutrition/feeding tube. Son and pt express that the goal is still for pt to d/c home and that more family flying in on and depending on how much assist pt needs with mobility will determine if they feel he can safely d/c home. Family and pt still trying to determine Hospice vs rehab and if rehab would be return home with [facility] and [facility] and family support or SNF and some of this is based on how pt does with PT and his progress with ST today. Plan: SW to follow closely for PCP to return tomorrow after PT/ST works with pt today towards determining home with Hospice vs home with CGs and Sig HH vs SNF. KAYLA Canales
--- NOTE | 2023-08-14 12:40 | PT.IIE ---
Current Diagnoses Sepsis, unspecified organism (08/12/23) Non-Hodgkin lymphoma, unspecified, unspecified site (08/12/23) Metabolic encephalopathy (08/12/23) Fever, unspecified (08/12/23) Severe sepsis with septic shock (08/12/23) Surgical History (Last Reviewed 08/12/23 @ 13:21 by Clyde Bonilla MD) History of carpal tunnel surgery of left wrist History of carpal tunnel surgery of right wrist History of total left knee replacement History of total right knee replacement History of vasectomy Hx of arthroscopy of knee Hx of bilateral cataract extraction Hx of cholecystectomy Hx of foot surgery Hx of repair of left rotator cuff Hx of tonsillectomy Medical History (Last Reviewed 08/12/23 @ 13:21 by Clyde Bonilla MD) BCC (basal cell carcinoma) Fracture of proximal end of right tibia 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 Hypertension MGUS (monoclonal gammopathy of unknown significance) Obesity Physical Therapy Inpatient Evaluation/Re-Eval M1 PT/OT-IP Prior Functional Status Start: 08/13/23 12:18 Freq: NEEDED Status: Active Protocol: Document 08/14/23 14:16 AB (Rec: 08/14/23 14:43 AB [id number]) Medical Review Prior Functional Status Medical History Reviewed Yes Diet/Fluid Consistency NPO Communication Pt is able to communicate needs but has garbled speech. Mobility and Gait Pt reports he used 4WW for mobility, but did not move around much, especially over the last few days to a week. Activities of Daily Living and IADL's Pt required assistance with ADLs at times for due to weakness. Requires assistance for all IADLs. Social History Household Members family,caregiver Living Arrangements House Number of Floors (Floors) One Floor Number of Stairs To Enter/Railing? no MAEVE Home Environment Standard Height Toilet,Walk in Shower Home Equipment Four Wheel Walker,Bedside Commode,Shower Seat with Backrest,Hand Held Shower, Welfare Manager,Grab Bars Near Toilet, Grab Bars In Shower Additional Social History Comment Pt's daughter states she has been assisting him real time analyst and also has assistance from [facility]. The pt does have an adjustable bed, which they typically raise to get out of bed. M2 PT-IP Current Condition Start: 08/13/23 12:18 Freq: NEEDED Status: Active Protocol: Document 08/14/23 14:16 AB (Rec: 08/14/23 14:43 AB [id number]) Physical Therapy Current Condition Current Condition Evaluation Date 08/14/23 Treatment Diagnosis generalized weakness Onset Date 08/12/23 M3 PT-IP Subjective Start: 08/13/23 12:18 Freq: NEEDED Status: Active Protocol: Document 08/14/23 14:16 AB (Rec: 08/14/23 14:43 AB [id number]) Subjective Physical Therapy Visit Type Type Initial Evaluation Visit Start Time 12:40 Visit Stop Time 13:33 Total Visit Minutes 53 Physical Therapy Visit Comments Patient Comments Pt reports he is feeling a little tired, but is agreeable to PT evaluation. Therapy Pain Assessment Pain When Pain Assessed At Rest Pain Present Pain Present Denied Pain M4 PT-IP Mobility and Gait Start: 08/13/23 12:18 Freq: NEEDED Status: Active Protocol: Document 08/14/23 14:16 AB (Rec: 08/14/23 14:43 AB [id number]) PT-Bed Mobility Assessment Rolling Type of Rolling Roll to Left Level of Assist Maximal Assistance,1 Person Assistance Supine to Sit Supine to Sit Maximum Assistance,1 Person Assistance,Bedrails Sit to Supine Sit to Supine Maximum Assistance,1 Person Assistance Scooting Scooting to Edge of Bed Maximum Assistance Scooting Up and Down in Bed Dependent PT-Transfer Assessment Comments Mobility Comments The pt required maxA x1 with use of bed rails to perform bed mobility due to weakness and fatigue, as reported by the pt. Once sitting at EOB, the pt has difficulty maintaining sitting balance without using UEs to hold on to bed rails, and had one instance of posterior LOB which required maxA to correct . The pt was unable to scoot forward due to weakness and fatigue, and reports feeling unable to attempt STS due to significant weakness. He denied other symptoms and vitals are stable when sitting at EOB. The pt returned to supine again with maxA x1, and was dependent to scoot up in bed. No further mobility was attempted. At end of session all needs were met, call light was placed within reach, bed alarm was activated, and daughter is present at bedside . PT-Balance Assessment Sitting Balance and Reactions Static Sitting Balance Ability Poor Dynamic Sitting Balance Ability Poor M5 PT-IP Objective Assessments Start: 08/13/23 12:18 Freq: NEEDED Status: Active Protocol: Document 08/14/23 14:16 AB (Rec: 08/14/23 14:43 AB [id number]) Orientation Orientation/Cognition Level of Alertness Alert Orientation Name,Age,Birthday,Month,Date, Year,Day of Week,Place, Situation Language Function Ability Garbled Speech Safety Awareness Understands Safety Issues Memory Description No Deficits Noted Gross Range of Motion Upper Extremity ROM Assessment Within Functional Limits Lower Extremity ROM Assessment Within Functional Limits Strength Upper Extremity Strength Assessment Bilaterally Impaired Lower Extremity Strength Assessment Bilaterally Impaired M6 PT-IP Treatment Start: 08/13/23 12:18 Freq: NEEDED Status: Active Protocol: Document 08/14/23 14:16 AB (Rec: 08/14/23 14:43 AB [id number]) Physical Therapy Treatment Education Education Provided Safety Brace Education Patient,Caregiver M7 PT-IP Assessment and Plan Start: 08/13/23 12:18 Freq: NEEDED Status: Active Protocol: Document 08/14/23 14:16 AB (Rec: 08/14/23 14:43 AB [id number]) PT Summary Assessment and Plan Potential Rehabilitation Potential Fair Status of Condition at Evaluation Evolving Summary Impairments Strength,Balance,Bed Mobility, Transfers,Gait,Activity Tolerance Assessment Summary Ike Baker is a 77 year old male patient presenting with generalized weakness secondary to medical comorbidities. Weakness along with endurance deficits and decreased activity tolerance, are limiting his ability to perform functional mobility. He currently requires maxA x1 to perform bed mobility, and was unable to perform further functional mobility due to significant weakness and fatigue. Based on his current level of function, discharge to SNF is recommended due to pt being unable to safely perform functional mobility to discharge to home at this time. However, discharge disposition may change based on the pt's progress over the course of his hospitalization. He would benefit from skilled PT to improve to his highest level of function. Goals Bed Mobility Goal Minimal Assistance Transfer Goal Minimal Assistance,Front Wheeled Walker Gait Goal Minimal Assistance,Front Wheel Walker Gait Distance 10 Other Goals Pt to be able to ambulate 50ft with Madhuri or better using FWW to show improving endurance and strength to perform functional mobility. Days to Meet Goals 10 Frequency of Treatment Frequency Of Treatment Once a Day Treatment Plan Physical Therapy Treatment Plan Bed Mobility Training,Transfer Training,Gait Training, Therapeutic Exercise,Balance Retraining,Post Op Education, Discharge Planning,Hot or Cold Pack,Neuromuscular Re-ed, Coordination Retraining,Manual Therapy Precautions Other Precautions Fall risk Recommendations To Nursing Amount of Assist Needed 2 Person Assist,Mechanical Lift Discharge Recommendations PT Discharge Recommendations SNF Rehab Equipment Needed for Home Before FWW Discharge Transportation Needs at Discharge Private Vehicle,Wheelchair/ Cabulance,Stretcher/Ambulance
[2023-08-14] MEDS: cefTRIAXone 1,000 MG in SODIUM CHLORIDE 0.9% 100 ML 150 MG IV (14:25)
[2023-08-14 15:32] LABS: Add Manual Diff / Slide Review NO; Basophils Absolute Auto 0 /uL (0-100); Eosinophils Absolute Auto 0 /uL (0-450); Eosinophils Percent Auto 0.1 % (2-4); Hematocrit 27.8 % (41-53); Lymphocytes Absolute Auto 200 /uL (1100-4500); Lymphocytes Percent Auto 5.8 % (25-40); Mean Corpuscular HGB Conc 32.5 % (30-36); Mean Corpuscular Hemoglobin 23.5 PG (26-34); Mean Corpuscular Volume 72.3 fL (80-100); Monocytes Absolute Auto 900 /uL (0-900); Neutrophils Absolute Auto 3100 /uL (1500-7000); Neutrophils Percent Auto 73.1 % (50-75); Platelet Count 295 X10^3/uL (150-400); Red Blood Cell Count 3.84 X10^6/uL (4.5-5.9); Red Cell Distribution Width 21.6 % (11.6-14.8); White Blood Cell Count 4.2 X10^3/uL (4.5-11.0)
[2023-08-14 15:48] LABS: BUN Creatinine Ratio 29.5 (6-22); Blood Urea Nitrogen 13 mg/dL (9-20); Calcium 7.7 mg/dL (8.4-10.2); Carbon Dioxide 22 mmol/L (22-32); Chloride 104 mmol/L (98-107); Estimated Glomerular Filt Rate > 60 mL/min (>60); Glucose 72 mg/dL (80-110); Potassium 3.5 mmol/L (3.4-5.1); Sodium 132 mmol/L (137-145)
[2023-08-14 15:53] LABS: Vancomycin Peak 23.7 ug/mL (20-40)
[2023-08-14 16:03] LABS: HEMOLYSIS 52 (0-50)
[2023-08-14 16:17] LABS: Microcytosis 1+; Poikilocytosis 1+; Schistocytes 1+
[2023-08-14] MEDS: LACTATED RINGERS 1,000 ML 75 ML IV (18:48)
[2023-08-14] MEDS: SODIUM CHLORIDE 0.9% FLUSH 10 ML IV (20:11)
[2023-08-14 20:58] VITALS: BP 111/64; PULSE 90; RESP 18; TEMP 36.9; O2SAT 95
[2023-08-15] MEDS: VANCOMYCIN TROUGH 1 REQUEST MISC (03:30)
[2023-08-15 03:51] LABS: Basophils Absolute Auto 0 /uL (0-100); Basophils Percent Auto 1.2 % (0-2); Eosinophils Absolute Auto 0 /uL (0-450); Eosinophils Percent Auto 0.1 % (2-4); Hematocrit 29.1 % (41-53); Hemoglobin 9.5 g/dL (13.5-17.5); Lymphocytes Absolute Auto 200 /uL (1100-4500); Lymphocytes Percent Auto 4.1 % (25-40); Mean Corpuscular HGB Conc 32.5 % (30-36); Mean Corpuscular Hemoglobin 23.5 PG (26-34); Mean Corpuscular Volume 72.1 fL (80-100); Monocytes Absolute Auto 800 /uL (0-900); Monocytes Percent Auto 21.8 % (3-14); Neutrophils Absolute Auto 2800 /uL (1500-7000); Neutrophils Percent Auto 72.8 % (50-75); Platelet Count 305 X10^3/uL (150-400); Red Blood Cell Count 4.03 X10^6/uL (4.5-5.9); Red Cell Distribution Width 21.9 % (11.6-14.8); White Blood Cell Count 3.8 X10^3/uL (4.5-11.0)
[2023-08-15 03:59] LABS: BUN Creatinine Ratio 29.2 (6-22); Blood Urea Nitrogen 14 mg/dL (9-20); Calcium 8.1 mg/dL (8.4-10.2); Carbon Dioxide 23 mmol/L (22-32); Chloride 104 mmol/L (98-107); Estimated Glomerular Filt Rate > 60 mL/min (>60); Glucose 78 mg/dL (80-110); HEMOLYSIS < 15 (0-50); Potassium 3.1 mmol/L (3.4-5.1); Sodium 132 mmol/L (137-145)
[2023-08-15 04:01] LABS: Add Manual Diff / Slide Review SLIDE REVIEW
[2023-08-15 04:22] LABS: Vancomycin Trough 16.8 ug/mL (10-20)
[2023-08-15] MEDS: VANCOMYCIN 1,250 MG/250 ML PIGGYBACK 250 MG IV ×3 (04:33→20:36)
[2023-08-15 05:10] VITALS: BP 127/71; PULSE 100; RESP 19; TEMP 37.1; O2SAT 94
[2023-08-15] MEDS: VANCOMYCIN PEAK 1 REQUEST MISC (07:00)
[2023-08-15 07:07] LABS: Vancomycin Peak 25.8 ug/mL (20-40)
[2023-08-15 07:51] LABS: Anisocytosis 1+
[2023-08-15] MEDS: LACTATED RINGERS 1,000 ML 75 ML IV (08:11)
--- NOTE | 2023-08-15 08:58 | CM.DPC ---
Addendum entered by Samantha Manrique R.N. 08/15/23 12:13: Confirmed address with son, Aj, who is at bedside, have also spoken to zia Reddy. Physical address is: [address] [place]. Brought in a POLST form, son, Aj, will see if Dr. Morris can update. Did discuss mode of transportation, that BLS would be the safest transfer, and could get a bill. Stated, money is not an object, if that's the safest way for him to transfer. Confirmed plan if discharge on Sunday, equipment will be delivered tomorrow. Will arrange waste picker at approximately 1330. Original Note: DCP Cont: Dr. Morris came by the office, stated that plan is home with hospice. Will need equipment delivered before he can go home. Asking Nidhi studio assistant, to [facility] Called Radha at [facility] about the new referral, and will need equipment sent out. Patient has supportive, family at home. P: DCP to work on home plan with [facility] Nidhi will fax over the referral. Will follow up again later today, most likely will need to go home BLS. [facility] to [facility] they have referral, and have already done info visit, and will get equipement out today. They can open on Sunday, between 2:00-3:00. Samantha Manrique RN/Floorperson
--- NOTE | 2023-08-15 08:59 | PM.PN.1 ---
Subjective Subjective Interval history: Patient seen in follow-up of sepsis metabolic encephalopathy atrial fibrillation. Patient feeling a little bit stronger. Still having trouble swallowing. Did not get swelling evaluate yesterday. Apparently on the docket for today. Really only wants ice cream. No other changes. He is not been eating well for a while. Feels swollen Exam Vital Signs (past 8 hours): - 08/15/23 05:10 Temperature 98.8 F Pulse Rate 100 H Respiratory Rate 19 Blood Pressure 127/71 Pulse Oximetry 94 Oxygen Delivery Method Room Air Oxygen Flow Rate 0 Narrative Exam Narrative: Alert elderly male lying in bed mildly fatigued in no acute distress Lungs are clear heart is regular rate and rhythm diffuse anasarca Objective Labs 08/15/23 03:35 08/15/23 03:35 Labs: Laboratory Results - last 24 hr 08/14/23 08/14/23 08/14/23 11:30 14:00 15:15 WBC 4.2 L RBC 3.84 L Hgb 9.0 L Hct 27.8 L MCV 72.3 L MCH 23.5 L MCHC 32.5 RDW 21.6 H Plt Count 295 Neut % (Auto) 73.1 Lymph % (Auto) 5.8 L Nicholas % (Auto) 21.0 H Eos % (Auto) 0.1 L Baso % (Auto) 0.0 Neut # (Auto) 3100 Lymph # (Auto) 200 L Nicholas # (Auto) 900 Eos # (Auto) 0 Baso # (Auto) 0 RBC Morphology See below Poikilocytosis 1+ H Anisocytosis Microcytosis 1+ H Schistocytes 1+ H Sodium 132 L Potassium 3.5 Chloride 104 Carbon Dioxide 22 BUN 13 Creatinine 0.44 L Estimated GFR > 60 BUN/Creatinine Ratio 29.5 H Glucose 72 L Calcium 7.7 L Vancomycin Peak 23.7 Vancomycin Trough 16.0 08/15/23 08/15/23 03:35 06:30 WBC 3.8 L RBC 4.03 L Hgb 9.5 L Hct 29.1 L MCV 72.1 L MCH 23.5 L MCHC 32.5 RDW 21.9 H Plt Count 305 Neut % (Auto) 72.8 Lymph % (Auto) 4.1 L Nicholas % (Auto) 21.8 H Eos % (Auto) 0.1 L Baso % (Auto) 1.2 Neut # (Auto) 2800 Lymph # (Auto) 200 L Nicholas # (Auto) 800 Eos # (Auto) 0 Baso # (Auto) 0 RBC Morphology See below Poikilocytosis Anisocytosis 1+ H Microcytosis Schistocytes Sodium 132 L Potassium 3.1 L Chloride 104 Carbon Dioxide 23 BUN 14 Creatinine 0.48 L Estimated GFR > 60 BUN/Creatinine Ratio 29.2 H Glucose 78 L Calcium 8.1 L Vancomycin Peak 25.8 Vancomycin Trough 16.8 PFSH Medical History History of revision of total replacement of right 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 BCC (basal cell carcinoma) MGUS (monoclonal gammopathy of unknown significance) Obesity Hypertension Fracture of proximal end of right tibia Surgical History Hx of arthroscopy of knee History of total left knee replacement History of total right knee replacement Hx of repair of left rotator cuff Hx of cholecystectomy History of carpal tunnel surgery of left wrist History of carpal tunnel surgery of right wrist Hx of bilateral cataract extraction Hx of foot surgery History of vasectomy Hx of tonsillectomy Social History household members: family and caregiver Smoking Status: Never smoker alcohol intake: current Assessment & Plan Assessment & Plan narrative: Anasarca. I suspect this is from his low protein. We discussed this. Will give a little Lasix today. Not sure it is going to fix this he is not having any significant respiratory problem at this time. But will try to give Lasix see if we can reduce swelling. Is on 75 cc maintenance fluid. Will continue that for now. And follow from there. Hypokalemia. Will replace with oral potassium. Recheck a.m.. We will have to see how he does am giving him some Lasix today. Sepsis. No fever. Seems to be doing well. Will continue antibiotics until discharge. No obvious source. Certainly concerning for aspiration. Do believe this is going to be a long-time issue. But have to see how things go. Difficulty swallowing. Possible source of infection. Will see what speech therapy recommends. Some of his problem is he can not sit up enough to where his neck does not hurt sure that is part of it. But aside from positioning he is weak. Depending on what speech decides will decide on diet when he goes home. Atrial fibrillation. Appears to be stable. Will follow. Continue Eliquis and digoxin. If goes home on hospice will consider discontinuing Eliquis. Hypertension. Stable at this time. Will hold medication I do not think we are going to have to worry too much about that. CLL. Patient with probable end-stage disease. Whether it is lymphoma or not. Did not get biopsy. Due to the amount of fatigue inability to eat I think his ability to tolerate treatment regardless of what that would be is almost nil. We discussed this. Discussed with family. Discussed with him. We were keeping her options open and trying to get to the point where we can decide on treatment but I think we missed that window. Probably was several months ago. Family understands. We are looking towards hospice. Discussed with social service. Goal will be to send home Sunday. Need to set up some things at the house. Family understands. Questions answered. Depression. I think were stable. I think he is making active and appropriate decisions. Code status DNR. GI prophylaxis not needed. Disposition. Long discussion with family. Will plan on Sunday. Hospice consult. 45 minutes spent with the patient family social service coverage team and dictation orders Quality VTE Deep Vein Thrombosis/Pulmonary Embolism Present on Admission: No
[2023-08-15] MEDS: SODIUM CHLORIDE 0.9% FLUSH 10 ML IV ×2 (09:03→20:37)
--- NOTE | 2023-08-15 09:41 | PT.IPTN ---
Current Diagnoses Sepsis, unspecified organism (08/12/23) Non-Hodgkin lymphoma, unspecified, unspecified site (08/12/23) Metabolic encephalopathy (08/12/23) Fever, unspecified (08/12/23) Severe sepsis with septic shock (08/12/23) Physical Therapy Treatment Note M2 PT-IP Current Condition Start: 08/13/23 12:18 Freq: NEEDED Status: Active Protocol: Document 08/14/23 14:16 AB (Rec: 08/14/23 14:43 AB [id number]) Physical Therapy Current Condition Current Condition Evaluation Date 08/14/23 Treatment Diagnosis generalized weakness Onset Date 08/12/23 M3 PT-IP Subjective Start: 08/13/23 12:18 Freq: NEEDED Status: Active Protocol: Document 08/15/23 09:40 AB(2) (Rec: 08/15/23 09:41 AB(2) [id number]) Subjective Physical Therapy Visit Type Type Administrative Note Notes Reviewed EMR and pt going on hospice care. Spoke with top case assembler and confirmed. informed regarding d/c PT. M7 PT-IP Assessment and Plan Start: 08/13/23 12:18 Freq: NEEDED Status: Active Protocol: Document 08/15/23 09:40 AB(2) (Rec: 08/15/23 09:41 AB(2) [id number]) PT Summary Assessment and Plan Frequency of Treatment Frequency Of Treatment Discharge
[2023-08-15] MEDS: FUROSEMIDE 20 MG/2 ML VIAL IV (09:55)
[2023-08-15] MEDS: POTASSIUM CHLORIDE IN WATER 10 MEQ/100 ML PIGGYBACK 100 MEQ IV ×4 (09:57→17:00)
[2023-08-15] MEDS: ENOXAPARIN 40 MG/0.4 ML SYRINGE SUBCUT (14:00)
[2023-08-15] MEDS: cefTRIAXone 1,000 MG in SODIUM CHLORIDE 0.9% 100 ML 200 MG IV (14:25)
--- NOTE | 2023-08-15 14:26 | ST.IPDYTX ---
Visit Care Team Role Provider Type Salinas Morris MD Primary Care Provider Physician Specialty: [facility] Address: [address] [place] [address], [id number] Email: [email or web address] Carmel Luna MD Emergency Provider Physician Referring Provider Specialty: Emergency Medicine Address: [address] [place] [address], [id number] Email: Ayana Rosales MD Attending Provider Physician Specialty: [facility] Address: [address] [place] [address] [place], [address] Email: [email or web address] Clyde Bonilla MD Admit Provider Physician Specialty: [facility] Address: [address] [place] [address], [id number] Email: [email or web address] BOOSTER ASSEMBLER Dysphagia Treatment BOOSTER ASSEMBLER Dysphagia Treatment Start: 08/15/23 14:15 Freq: Status: Active Protocol: Document 08/15/23 14:15 CG (Rec: 08/15/23 14:26 CG [id number]) Dysphagia Treatment Session Time Visit Start Time 13:30 Visit Stop Time 13:45 Total Visit Minutes 15 Visit Information Visit Number 2 Setting Assessment Location Acute Care Patient Information Subjective Observations The pt was laying fully reclined in bed upon ST entry to room, with his son present in the room. Pt was dosing but responsive to conversation . Treatment Treatment Activities BOOSTER ASSEMBLER provided discharge planning with recommendations for comfort as pt is to d/c to hospice on Sunday. Consulted with MD regarding current swallowing status. Reviewed swallowing strategies (upright posture, small bites) and discussed continuing oral care for pt comfort/dignity and decreasing risk of aspiration pneumonia. Disucced use of supraglottic swallow to reduce amount of bolus infiltrating lungs. The IDDSI Framework Protocol: IDDSI.1 Assessment Assessment of Improvement The pt will be discharging to home hospice on Sunday. He and his son were agreeable to recommendations. He states all he wants is ice cream. BOOSTER ASSEMBLER explained the role of swallowing recommendations within hospice care and explained that the pt will likely aspirate the ice cream, and ultimately develop aspiration pneumonia; however, on hospice this risk is usually accepted to promote quality of life. Pt's son wants his dad to be able to eat what he wants. Pt is agreeable to using supraglottic swallow to increase airway protection. Given overall medical status with cancer, pt will likely continue to weaken and swallow function will decrease, but pt's directive states he does not want alternative nutrition. BOOSTER ASSEMBLER continues to recommend comfort measures guided by pt preference and maintaining pt dignity while acknowledging aspiration risk. Recommendations Liquids Order Thin (IDDSI 0) Medication Recommendations Not Recommended by Mouth Aspiration Precautions Recommended Precautions Upright at 90 Degrees,Small Bites/Sips,Supraglottic Swallow,Liquids from Spoon Treatment Plan Placement Recommendation after Discharge Home with Hospice Appropriate for Continued Therapy No
[2023-08-15 18:08] VITALS: BP 113/68; PULSE 131; RESP 18; TEMP 37; O2SAT 93
[2023-08-15 21:03] VITALS: BP 100/67; PULSE 79; RESP 17; TEMP 36.9; O2SAT 93
[2023-08-16] MEDS: VANCOMYCIN 1,250 MG/250 ML PIGGYBACK 250 MG IV (03:17)
[2023-08-16 05:36] VITALS: BP 108/63; PULSE 98; RESP 17; TEMP 37.2; O2SAT 94
[2023-08-16 05:42] LABS: BUN Creatinine Ratio 33.3 (6-22); Blood Urea Nitrogen 19 mg/dL (9-20); Calcium 8.5 mg/dL (8.4-10.2); Carbon Dioxide 22 mmol/L (22-32); Chloride 103 mmol/L (98-107); Estimated Glomerular Filt Rate > 60 mL/min (>60); Glucose 80 mg/dL (80-110); HEMOLYSIS 29 (0-50); Potassium 3.2 mmol/L (3.4-5.1); Sodium 132 mmol/L (137-145)
[2023-08-16] MEDS: SODIUM CHLORIDE 0.9% FLUSH 10 ML IV ×2 (10:07→21:17)
[2023-08-16] MEDS: FUROSEMIDE 20 MG/2 ML VIAL IV (10:07)
[2023-08-16] MEDS: ENOXAPARIN 40 MG/0.4 ML SYRINGE SUBCUT (10:07)
[2023-08-16] MEDS: DICLOFENAC 1% GEL 100 GM 1 APPLIC TOP ×3 (10:12→21:17)
[2023-08-16] MEDS: metroNIDAZOLE 500 MG/100 ML PIGGYBACK 100 MG IV ×2 (13:52→21:16)
--- NOTE | 2023-08-16 14:28 | CM.DPNOTE ---
DCP Note Met w/patient and family at bedside to review discharge plan. DME has been delivered to patient's home today and family is prepared for patient's return home tomorrow with hospice to open tomorrow afternoon between [id number]. Discussed BLS transport and reviewed the likelihood that there would be an out of pocket cost for BLS, family states understanding and agreeable to plan. [facility] to [facility], scheduled transport for picker machine operator tomorrow at 1200. Completed BLS form, needs provider signature. Family updated. Placed call to Samia at [facility], left message with update. Plan: Discharge anticipated tomorrow, home w/family to [id number] [facility], via BLS picker machine operator at 1200. Hospice to open services between [id number]. DEAN
[2023-08-16] MEDS: cefTRIAXone 1,000 MG in SODIUM CHLORIDE 0.9% 100 ML 200 MG IV (15:01)
[2023-08-16 20:15] VITALS: BP 110/65; PULSE 87; RESP 18; TEMP 37; O2SAT 93
[2023-08-16] MEDS: LACTATED RINGERS 1,000 ML 75 ML IV (20:45)
--- NOTE | 2023-08-16 21:06 | PM.PN.1 ---
Subjective Subjective Interval history: CC: inability to swallow, CLL Pt resting comfortably today still not able to swallow well Family is moving things around at home - planning discharge home with family for home hospice tomorrow DNR form completed today Exam Vital Signs (past 8 hours): Oxygen Delivery Method Room Air Oxygen Flow Rate 0 Narrative Exam Narrative: elder resting comfortably in bed Resp Other: unlabored breathing moving air well on room air Cardio Other: regular rate, well perfused, diffuse anasarca Objective Labs 08/15/23 03:35 08/16/23 04:48 Labs: Laboratory Results - last 24 hr 08/16/23 04:48 Sodium 132 L Potassium 3.2 L Chloride 103 Carbon Dioxide 22 BUN 19 Creatinine 0.57 L Estimated GFR > 60 BUN/Creatinine Ratio 33.3 H Glucose 80 Calcium 8.5 PFSH Medical History History of revision of total replacement of right 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 BCC (basal cell carcinoma) MGUS (monoclonal gammopathy of unknown significance) Obesity Hypertension Fracture of proximal end of right tibia Surgical History Hx of arthroscopy of knee History of total left knee replacement History of total right knee replacement Hx of repair of left rotator cuff Hx of cholecystectomy History of carpal tunnel surgery of left wrist History of carpal tunnel surgery of right wrist Hx of bilateral cataract extraction Hx of foot surgery History of vasectomy Hx of tonsillectomy Social History household members: family and caregiver Smoking Status: Never smoker alcohol intake: current Assessment & Plan Assessment & Plan narrative: #Anasarca Stable no respiratory issues, continue maintenance fluids 75mL #Hypokalemia Unable to swallwo pills, monitor for now consider IV repletion #Sepsis generally improved - switching out antibiotics for flagyl for possible aspiration issues. No fever. Seems to be doing well. Will continue antibiotics until discharge. No obvious source. #dysphagia Posturally dependent he is needing to stand upright to swallow safely at home and not doing great here. Depending on what speech decides will decide on diet when he goes home. #Atrial fibrillation stable, continue Eliquis and digoxin. If goes home on hospice will consider discontinuing Eliquis. #Hypertension Stable, hold home meds #CLL Patient with probable end-stage disease without biopsy to confirm, due to fatigue/dysphagia concur ability to tolerate treatment regardless of what that would be is almost nil. Family planning d/c home with home hospice tomorrow once house is set up. DNR POLSt completed today. #Depression stable Code status DNR. GI prophylaxis not needed. Dispo: home with home hospice tomorrow Quality VTE Deep Vein Thrombosis/Pulmonary Embolism Present on Admission: No
[2023-08-17] MEDS: metroNIDAZOLE 500 MG/100 ML PIGGYBACK 100 MG IV (04:33)
[2023-08-17] MEDS: MORPHINE 4 MG/ML INJ 3 MG IV (05:05)
[2023-08-17 05:49] LABS: BUN Creatinine Ratio 39.3 (6-22); Blood Urea Nitrogen 24 mg/dL (9-20); Calcium 8.8 mg/dL (8.4-10.2); Carbon Dioxide 24 mmol/L (22-32); Chloride 103 mmol/L (98-107); Estimated Glomerular Filt Rate > 60 mL/min (>60); Glucose 95 mg/dL (80-110); HEMOLYSIS < 15 (0-50); Potassium 2.9 mmol/L (3.4-5.1); Sodium 134 mmol/L (137-145)
[2023-08-17 07:58] VITALS: BP 113/64; PULSE 109; RESP 18; TEMP 37.1; O2SAT 96
--- NOTE | 2023-08-17 08:11 | PM.DS.1 ---
History of Present Illness History of Present Illness Date Patient Seen: 08/17/23 Time Patient Seen: 08:11 Chief complaint: Altered LOC/weakness Narrative: See history and physical dictated by Dr. Bonilla Discharge Providers Provider Date of admission: 08/12/23 12:14 Discharge Date: 08/17/23 Primary care physician: Salinas Morris MD Consults: 08/13/23 12:09 Consult to Physical Therapy Evaluate & Treat Comment: Physician Instructions: Evaluate and Treat Consult to Speech Therapy Evaluate & Treat Comment: Physician Instructions: Evaluate and treat 08/15/23 09:06 Consult to Hospice Referral Routine Comment: Discharge provider: Salinas Morris MD Summary Hospital Course Discharge Diagnosis: Sepsis Hypokalemia Anasarca CLL Difficulty swallowing Atrial fibrillation Depression Atrial fibrillation Hospital Course: Sepsis. Patient was admitted for presumed sepsis. Low blood pressure fever and probable aspiration pneumonia. Cultures were negative. Patient was continued on antibiotics throughout course of admission. Seem to get better as far as that goes. No further fever or other change. Patient will not be discharged home on antibiotics. Anasarca. Patient was noted to have anasarca on the 3rd day of admission. Started on IV Lasix initially and had been continued. Really not a lot of change. Was discontinued secondary to hypokalemia. Otherwise has been doing fairly well. Anasarca was felt to be secondary to his low protein and poor p.o. intake. Secondary to his cancer. And will not be treated any further at this time. Hypokalemia. Patient with persistent and progressive hypokalemia despite replacement. Lasix was discontinued and on day of discharge the discussion was do we IV replace or do we just try oral replacement. Due to the fact patient is going home on hospice it was felt they would rather take him home after discussion with son. And at this point we will try liquid oral replacement and see how that goes. Follow from there. Will not follow-up with labs. CLL/lymphoma. Patient was supposed to have biopsy earlier this week. Was unable to make it. We have had long discussions during this admission with family about where we are headed. I do not think he has the strength to handle any treatment. He is progressively getting weaker. He is not eating and at this point is going to be terminal. I suspect relatively soon. After discussion with family we set up hospice home care family is here and we will discharge home with expectations that he will pass in the next few days. Depression. Not an issue during this admission. Difficulty swallowing. Etiology is unclear but certainly severe. We are going to go home and let him eat whatever he wants because probably he will not be long for this world and will let him enjoy whatever he wants to do. Atrial fibrillation. Will discontinue usual medicines. Follow from there. Disposition. Patient clearly is progressing towards very soon. We discussed with family they understand. We are going to discontinue all his medication except the potassium will let hospice set up any other medication but he is really not uncomfortable. And will see how things go. Hospice is seeing later today. The family understands is appreciative. 45 minutes spent with the patient family social service Exam Vital Signs (past 8 hours): - 08/17/23 07:58 Temperature 98.8 F Pulse Rate 109 H Respiratory Rate 18 Blood Pressure 113/64 Pulse Oximetry 96 Oxygen Flow Rate 0 Oxygen Delivery Method Room Air Oxygen Flow Rate 0 Narrative Exam Narrative: Alert elderly male fatigued having difficulty talking in no acute distress Objective Labs 08/15/23 03:35 08/17/23 05:10 Labs: Laboratory Results - last 24 hr 08/17/23 05:10 Sodium 134 L Potassium 2.9 L Chloride 103 Carbon Dioxide 24 BUN 24 H Creatinine 0.61 L Estimated GFR > 60 BUN/Creatinine Ratio 39.3 H Glucose 95 Calcium 8.8 PFSH Medical History History of revision of total replacement of right 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 BCC (basal cell carcinoma) MGUS (monoclonal gammopathy of unknown significance) Obesity Hypertension Fracture of proximal end of right tibia Surgical History Hx of arthroscopy of knee History of total left knee replacement History of total right knee replacement Hx of repair of left rotator cuff Hx of cholecystectomy History of carpal tunnel surgery of left wrist History of carpal tunnel surgery of right wrist Hx of bilateral cataract extraction Hx of foot surgery History of vasectomy Hx of tonsillectomy Social History household members: family and caregiver Smoking Status: Never smoker alcohol intake: current Discharge Assessment & Plan Assessment and Plan Assessment: Discharge home with hospice Discharge Plan Discharge Plan Patient Disposition: Home Provider Discharge Comment: hospice Discharge orders & Medications Prescriptions: New potassium chloride 20 mEq/15 mL Liquid 20 meq PO BIDWM Qty: 120 1RF Discontinued Chondroitin Sulfate 250 MG capsule 600 mg PO Q DAY Qty: 0 zolpidem 5 mg tablet 5 mg PO BEDTIME PRN (Reason: Insomnia) fexofenadine 180 mg Tablet 180 mg PO DAILY montelukast 10 mg Tablet 10 mg PO DAILY PRN (Reason: asthma.) pravastatin 20 mg Tablet 20 mg PO DAILY multivitamin Tablet 1 tab DAILY PreserVision AREDS-2 1 tab BID Vitamin C 1,000 mg Tablet Extended Release 1,000 mg PO Q12H cyanocobalamin (vitamin B-12) [Vitamin B-12] 1,000 mcg Tablet 1,000 mcg PO DAILY fluoxetine 10 mg Capsule 10 mg PO DAILY vitamin E 400 unit Capsule 400 unit PO DAILY folic acid 800 mcg Tablet 0.8 mg PO DAILY cholecalciferol (vitamin D3) [Vitamin D3] 25 mcg (1,000 unit) Capsule 25 mcg PO DAILY vitamin B6-vitamin E-magnesium Tablet 1 tab PO DAILY loratadine 10 mg Capsule 10 mg PO DAILY PRN (Reason: Allergic Symptoms) PreserVision AREDS 7,160 unit- 113 mg-100 unit Tablet 1 tab PO BID Rx Instructions: administer with AM and PM meals selenium 200 mcg Capsule 200 mcg PO DAILY Glucosamine Chondroitin 550-30-1 mg Capsule 1 cap PO DAILY Prevagen 1 tab DAILY Imbruvica 140 mg Capsule 420 mg PO DAILY Qty: 90 3RF Rx Instructions: Take 3 capsules daily vitamin K2 100 mcg Capsule 100 mcg PO DAILY Eliquis 5 mg Tablet 5 mg PO BID Qty: 60 3RF dronabinol 2.5 mg Capsule 2.5 mg PO TID PRN (Reason: Anorexia) Qty: 90 1RF digoxin 125 mcg (0.125 mg) Tablet 0.125 mg PO DAILY@1700 Qty: 30 3RF mirtazapine 15 mg Tablet 7.5 mg PO BEDTIME Qty: 90 0RF Follow up/Referrals: Salinas Morris MD [Primary Care Provider] - 08/20/23 (I will call and set up I) Discharge Health Status Multidrug resistant organism: No MDRO Diet/Activity/Treatments Diet: Diet as Tolerated Visit Report/Discharge Packet Stand Alone Forms: Patient Portal/API, Stroke Signs & Symptoms Discharge Data Primary Care Provider: Salinas Morris VTE Deep Vein Thrombosis/Pulmonary Embolism Present on Admission: No
--- NOTE | 2023-08-17 11:08 | PC.NURSE ---
Patient is being discharged to home at noon via bls. He is ready to go and iv will be taken out. Family is at bedside.
--- NOTE | 2023-08-17 11:29 | CM.DPC ---
Addendum entered by Samantha Manrique R.N. 08/17/23 13:15: [facility]. Patient was picked up BLS, currently at home. Original Note: DCP Cont: Dr. Carrasco came by the office. He signed BLS form, POLST form was completed, son, Aj, has been at bedside. BLS pickling drum operator is set up for noon today, with [facility] between 2-3 today. Updated nurse, Rosario, regarding pickling drum operator time as well. P: Patient will discharge home with family today, with BLS pickling drum operator at noon, and hospice services. Samantha Bull RN/Career Coordinator
== END 2023-08-17 12:03 | disposition hospice, home (50) | DRG 871 ==
LOC: ED 10:42 → AC 12:15
PROVIDERS: Admitting Provider Family Medicine; Emergency Provider Emergency Medicine; PCP Family Medicine; Referring Provider Emergency Medicine; Visit Provider Family Medicine
DX: A41.9 Sepsis, unspecified organism (principal); E43 Unspecified severe protein-calorie malnutrition; G93.41 Metabolic encephalopathy; R65.21 Severe sepsis with septic shock; C91.10 Chronic lymphocytic leukemia of B-cell type not having achieved remission; I48.91 Unspecified atrial fibrillation; I10 Essential (primary) hypertension; E87.6 Hypokalemia; R13.10 Dysphagia, unspecified; Z79.01 Long term (current) use of anticoagulants; Z66 Do not resuscitate; Z68.22 Body mass index [BMI] 22.0-22.9, adult
CPT/HCPCS: 36415; 71045; 80048; 80053; 80162; 80202; 81001; 82962; 83605; 83690; 84145; 84484; 85007; 85025; 85610; 85730; 87040; 87086; 87633; 92526; 92610; 93005; 96365; 96367; 96375; 97163; 97535; 99223; 99284; 99291; J0131; J0692; J0696; J1160; J1650; J1940; J2270; J7050